=== PATIENT | female | born 1975 | race African-American/Black ===

== ENCOUNTER 2018-07-08 00:37 | Inpatient (IN) | payer OTHER ==
[2018-07-08 00:55] VITALS: BMI 36.9
[2018-07-08] MEDS ORDERED: KETOROLAC TROMETHAMINE 60 MG/2 ML VIAL IM ONE (01:15)
--- NOTE | 2018-07-08 01:15 | PDOC ---
History of Present Illness - General Chief Complaint: Injury Stated Complaint: FALL Time Seen by Provider: 07/08/18 01:06 History Source: Patient - History of Present Illness Initial Comments: 07/08/18 02:37 42 year old female with rheumatoid arthritis s/p slip and fall in the bathroom at 8pm reports pain to right upper arm, right knee and right ankle pain. no deformity noted. + swelling to right knee. full rom to right shoulder. denies LOC/ dizziness/ head trauma PMHX: RA Past History - Past Medical History Allergies/Adverse Reactions: Allergies Allergy/AdvReac Type Severity Reaction Status Date / Time No Known Allergies Allergy Verified 07/08/18 00:46 Home Medications: Ambulatory Orders Calcium Carbonate/Vitamin D3 [Calcium 600 + D3 Softgel] 1 each PO DAILY Ferrous Sulfate 325 mg PO DAILY 07/08/18 Folic Acid 1 mg PO DAILY 07/08/18 Multivit with Iron,Minerals [Compete] 1 each PO DAILY 07/08/18 Naproxen 500 mg PO Q12H 07/08/18 Prednisone [Deltasone] 20 mg PO DAILY 07/08/18 Vit No.129/Iron/Folic [ One Daily Tablet] 1 tablet PO DAILY Sulfasalazine [Sulfasalazine Dr] 500 mg PO TID 07/08/18 - Suicide/Smoking/Psychosocial Hx Smoking History: Never smoked Have you smoked in the past 12 months: No Information on smoking cessation initiated: No Hx Alcohol Use: No Drug/Substance Use Hx: No Review of Systems - Review of Systems Able to Perform ROS?: Yes Is the patient limited Japanese proficient: No Constitutional: No: Symptoms Reported, See HPI, Chills, Diaphoresis, Fever, Loss of Appetite, Malaise, Night Sweats, Weakness, Weight Stable, Unintentional Wgt. Loss, Unexplained wgt Loss, Other Musculoskeletal: Yes: Joint Pain, Joint Swelling *Physical Exam - Vital Signs Last Vital Signs Temp Pulse Resp BP Pulse Ox 98.0 F 108 H 20 148/92 98 07/08/18 00:40 07/08/18 00:40 07/08/18 00:40 07/08/18 00:40 07/08/18 00:40 - Physical Exam General Appearance: Yes: Appropriately Dressed, Mild Distress Gastrointestinal/Abdominal: positive: Normal Bowel Sounds, Soft Musculoskeletal: positive: Normal Inspection Extremity: positive: Normal Capillary Refill, Normal Inspection, Other (limited rom of right ankle and right knee) Integumentary: positive: Normal Color, Dry, Warm Neurologic: positive: Fully Oriented, Alert ED Treatment Course - LABORATORY CBC & Chemistry Diagram: 07/08/18 04:23 07/08/18 04:23 Progress Note - Progress Note Progress Note: A: Joint pain P; pain control xray labs admit Medical Decision Making - Medical Decision Making 07/08/18 03:38 patient reports pain is too severe unable to weight bear. will give meds for pain, will check labs and admit for PT evaluation and pain control. patient reports that she usually goes to [facility] recently moved to [place]. lives 3 flights up wit no elevator. 07/08/18 04:35 07/08/[address] Cuadra. pending CT pelvis and lower extremity prior to disposition. 07/08/18 07:11 Patient signed out to Travis Robledo. pending CT results., TOSIN to contact hospitalist once results are read. *DC/Admit/Observation/Transfer Diagnosis at time of Disposition: Unable to bear weight Ankle pain, right Qualifiers: Chronicity: acute Qualified Code(s): M25.571 - Pain in right ankle and joints of right foot Knee pain, right Qualifiers: Chronicity: acute Qualified Code(s): M25.561 - Pain in right knee Upper extremity pain, anterior Qualifiers: Laterality: right Qualified Code(s): M79.601 - Pain in right arm - Discharge Dispostion Condition at time of disposition: Stable Decision to Admit order: Yes - Referrals - Patient Instructions - Post Discharge Activity
[2018-07-08] MEDS ORDERED: KETOROLAC TROMETHAMINE 60 MG/2 ML VIAL ONE (01:37)
[2018-07-08 04:46] LABS: BASO % 0.7 % (0-2.0); HEMATOCRIT 33.9 % (32.4-45.2); HEMOGLOBIN 11.2 GM/dL (10.7-15.3); LYMPH % 19.9 % (8-40); MCH 28.3 pg (25.7-33.7); MCHC 33.1 g/dl (32.0-36.0); MEAN CELL VOLUME 85.5 fl (80-96); MEAN PLT VOLUME 7.9 fl (7.5-11.1); MONO % 6.8 % (3.8-10.2); NEUT % 70.6 % (42.8-82.8); PLATELET COUNT 441 K/MM3 (134-434); RBC 3.97 M/mm3 (3.60-5.2); RDW 15.8 % (11.6-15.6)
[2018-07-08 05:17] LABS: ALBUMIN 2.8 g/dl (3.4-5.0); ALK PHOS 79 U/L (45-117); ANION GAP 7 MMOL/L (8-16); BILIRUBIN,TOTAL 0.6 mg/dL (0.2-1); BLOOD UREA NITROGEN 17 mg/dL (7-18); CALCIUM 8.6 mg/dL (8.5-10.1); CHLORIDE 102 mmol/L (98-107); CO2 26 mmol/L (21-32); CREATININE 0.9 mg/dL (0.55-1.3); GLUCOSE,RANDOM 138 mg/dL (74-106); POTASSIUM 4.3 mmol/L (3.5-5.1); SGOT/AST 23 U/L (15-37); SGPT/ALT 16 U/L (13-61); SODIUM 135 mmol/L (136-145); TOT PROT 7.2 g/dl (6.4-8.2)
--- NOTE | 2018-07-08 07:28 | PDOC ---
*Physical Exam - Vital Signs Last Vital Signs Temp Pulse Resp BP Pulse Ox 98.0 F 108 H 20 148/92 98 07/08/18 00:40 07/08/18 00:40 07/08/18 00:40 07/08/18 00:40 07/08/18 00:40 - Physical Exam Comments: 07/08/18 07:23 I as you and care of this 42-year-old with history of rheumatoid arthritis presenting with complain of pain to right shoulder, right knee and ankle status post slip and fall yesterday. X-ray done with no sig joint findings. Patient refused to bear weight due to pain. Patient laying on the right side on the bed even though she complain of right-sided pain. CAT scan of the pelvis ordered as per hospitalist request. Patient to be admitted for pain control and physical therapy evaluation due to not wanting to bear weight. General Appearance: Yes: Nourished. No: Apparent Distress HEENT: positive: Normal ENT Inspection Neck: positive: Supple Respiratory/Chest: positive: Lungs Clear. negative: Chest Tender, Accessory Muscle Use Cardiovascular: positive: Regular Rhythm, Regular Rate Gastrointestinal/Abdominal: positive: Normal Bowel Sounds Musculoskeletal: positive: Normal Inspection, Other (mild right knee swelling) Extremity: positive: Normal Inspection Neurologic: positive: Fully Oriented, Alert, Normal Mood/Affect, Normal Response , Motor Strength / ED Treatment Course - LABORATORY CBC & Chemistry Diagram: 07/08/18 04:23 07/08/18 04:23 - ADDITIONAL ORDERS Additional order review: Laboratory Results 07/08/18 07/08/18 04:23 04:23 Sodium 135 L Potassium 4.3 Chloride 102 Carbon Dioxide 26 Anion Gap 7 L BUN 17 Creatinine 0.9 Creat Clearance w eGFR > 60 Random Glucose 138 H Calcium 8.6 Total Bilirubin 0.6 AST 23 ALT 16 Alkaline Phosphatase 79 C-Reactive Protein 8.6 H Total Protein 7.2 Albumin 2.8 L Serum , Qual Negative 07/08/18 04:23 RBC 3.97 MCV 85.5 MCHC 33.1 RDW 15.8 H MPV 7.9 Neutrophils % 70.6 Lymphocytes % 19.9 Monocytes % 6.8 Eosinophils % 2.0 Basophils % 0.7 - Medications Given in the ED: ED Medications Discontinued Medications Generic Name Dose Route Start Last Admin Trade Name Freq PRN Reason Stop Dose Admin Ketorolac Tromethamine 60 mg 07/08/18 01:15 07/08/18 02:06 Toradol Injection - IM 07/08/18 01:16 60 mg ONCE ONE Administration Oxycodone/Acetaminophen 1 combo 07/08/18 03:29 07/08/18 04:45 Percocet 5/325 - PO 07/08/18 03:30 1 combo ONCE ONE Administration Medical Decision Making - Medical Decision Making 07/08/18 07:26 Patient with the history of rheumatoid arthritis present with complain of pain to right shoulder right knee and ankle status post fall. Patient given Toradol IM and Percocet for pain and still reported severe pain and does not want to ambulate or bear weight on right foot. Patient reported history of multiple admissions every time she has joint pains at [facility] and refused to be sent home today. Case discussed with hospitalist team and patient pending admission after CT scan of the pelvis. 07/08/18 09:22 CT of LE with no acute findings. patient admitted under Dr. Azar Ogden for observation and pain control *DC/Admit/Observation/Transfer Diagnosis at time of Disposition: Unable to bear weight Ankle pain, right Qualifiers: Chronicity: acute Qualified Code(s): M25.571 - Pain in right ankle and joints of right foot Knee pain, right Qualifiers: Chronicity: acute Qualified Code(s): M25.561 - Pain in right knee Upper extremity pain, anterior Qualifiers: Laterality: right Qualified Code(s): M79.601 - Pain in right arm - Discharge Dispostion Condition at time of disposition: Stable Decision to Admit order: Yes - Referrals - Patient Instructions - Post Discharge Activity
[2018-07-08] MEDS ORDERED: ACETAMINOPHEN 325 MG TABLET (FP) PO PRN (09:00)
--- NOTE | 2018-07-08 09:00 | HP ---
CHIEF COMPLAINT: inability to bear weight PCP: none HISTORY OF PRESENT ILLNESS: 42 year old female with a history of rheumatoid arthritis presents s/p fall in her bathroom last night and inability to bear weight. She reports that she fell in her bathroom at around 8pm last night. Reports tripping and falling on her right side, hitting her pelvis, R arm, R knee, and R ankle. Reports intense pain and swelling in her right knee and states that she is unable to bear weight. Reports that she was diagnosed with RA 4 years ago, and has since been on several medications (sulfasalazine, prednisone, and naproxen), but she ran out 2 days ago. 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 She had previously gotten her meds from [facility] in [place]. Patient currently denies chest pain, SOB, nausea, vomiting, diarrhea, fevers, chills. ER course was notable for: (1) XR Knee, XR ankle/humerus (2) (3) Recent Travel: PAST MEDICAL HISTORY: Rheumatoid arthritis PAST SURGICAL HISTORY: none Social History: Smoking: smoked for 10 years, initially started at 1.5 ppd and reduced to 4 cigs /day Alcohol: never Drugs: never Family History: no history of DM, HTN, Allergies No Known Allergies Allergy (Verified 07/08/18 00:46) HOME MEDICATIONS: Home Medications Medication Instructions Recorded Calcium Carbonate/Vitamin D3 1 each PO DAILY 07/08/18 [Calcium 600 + D3 Softgel] Ferrous Sulfate 325 mg PO DAILY 07/08/18 Folic Acid 1 mg PO DAILY 07/08/18 Multivit with Iron,Minerals 1 each PO DAILY 07/08/18 [Compete] Naproxen 500 mg PO Q12H 07/08/18 Prednisone [Deltasone] 20 mg PO DAILY 07/08/18 Vit No.129/Iron/Folic 1 tablet PO DAILY 07/08/18 [ One Daily Tablet] Sulfasalazine [Sulfasalazine Dr] 500 mg PO TID 07/08/18 REVIEW OF SYSTEMS CONSTITUTIONAL: Absent: fever, chills, diaphoresis, generalized weakness, malaise, loss of appetite, weight change HEENT: Absent: rhinorrhea, nasal congestion, throat pain, throat swelling, difficulty swallowing, mouth swelling, ear pain, eye pain, visual changes CARDIOVASCULAR: Absent: chest pain, syncope, palpitations, irregular heart rate, lightheadedness , peripheral edema RESPIRATORY: Absent: cough, shortness of breath, dyspnea with exertion, orthopnea, wheezing, stridor, hemoptysis GASTROINTESTINAL: Absent: abdominal pain, abdominal distension, nausea, vomiting, diarrhea, constipation, melena, hematochezia GENITOURINARY: Absent: dysuria, frequency, urgency, hesitancy, hematuria, flank pain, genital pain MUSCULOSKELETAL: arthralgia, joint swelling Absent: myalgia, back pain, neck pain SKIN: Absent: rash, itching, pallor HEMATOLOGIC/IMMUNOLOGIC: Absent: easy bleeding, easy bruising, lymphadenopathy, frequent infections ENDOCRINE: Absent: unexplained weight gain, unexplained weight loss, heat intolerance, cold intolerance NEUROLOGIC: Absent: headache, focal weakness or paresthesias, dizziness, unsteady gait, seizure, mental status changes, bladder or bowel incontinence PSYCHIATRIC: Absent: anxiety, depression, suicidal or homicidal ideation, hallucinations. PHYSICAL EXAMINATION Vital Signs - 24 hr 07/08/18 07/08/18 00:40 08:21 Temperature 98.0 F 98.3 F Pulse Rate 108 H Pulse Rate [ 98 H Left Apical] Respiratory 20 16 Rate Blood Pressure 148/92 Blood Pressure 118/82 [Left Arm] O2 Sat by Pulse 98 98 Oximetry (%) GENERAL: A&Ox3, no acute distress EYES: PERRLA, EOMI ENT: Moist mucus membranes NECK: No JVD LUNGS: CTA, no wheezes HEART: RRR, no murmurs ABDOMEN: Obese, Soft, nontender, BS present EXTREMITIES: 2+ pulses, swelling of b/l knees noted, moreso on the R. Patient has restricted ROM of B/L knees due to pain. Patient has flexion contractures of b/l hands and radial deviation b/l NEUROLOGICAL: Cranial nerves II-XII intact. Laboratory Results - last 24 hr 07/08/18 07/08/18 07/08/18 04:23 04:23 04:23 WBC 8.0 RBC 3.97 Hgb 11.2 Hct 33.9 MCV 85.5 MCH 28.3 MCHC 33.1 RDW 15.8 H Plt Count 441 H MPV 7.9 Absolute Neuts (auto) 5.6 Neutrophils % 70.6 Lymphocytes % 19.9 Monocytes % 6.8 Eosinophils % 2.0 Basophils % 0.7 Nucleated RBC % 0 Sodium 135 L Potassium 4.3 Chloride 102 Carbon Dioxide 26 Anion Gap 7 L BUN 17 Creatinine 0.9 Creat Clearance w eGFR > 60 Random Glucose 138 H Calcium 8.6 Total Bilirubin 0.6 AST 23 ALT 16 Alkaline Phosphatase 79 C-Reactive Protein 8.6 H Total Protein 7.2 Albumin 2.8 L Serum , Qual Negative ASSESSMENT/PLAN: 42 year old female with a history of rheumatoid arthritis presents s/p fall in her bathroom last night and inability to bear weight #S/P Fall: patient is currently stable, in no acute distress, but would like admission for inability to bear weight and evaluation for RA management -patient is unable to bear weight -pain control with home medications, add tylenol -physical therapy -no fractures on x rays #Rheumatoid Arthritis: patient is not well controlled on current medications and /or non-compliant with therapy -continue sulfasalazine -continue prednisone -continue naproxen #Anemia: stable with hgb 11.2 -continue ferrous sulfate 325 QD -continue folate and multivitamin #Smoking Cessation: counseled patient on smoking cessation -will give nicotine patch #FEN -no standing fluids -lytes normal -regular diet #Prophylaxis -heparin 5000 subq TID #Disposition -admit obs Visit type - Emergency Visit Emergency Visit: Yes ED Registration Date: 07/08/18 Care time: The patient presented to the Emergency Department on the above date and was hospitalized for further evaluation of their emergent condition. - New Patient This patient is new to me today: Yes Date on this admission: 07/08/18 - Critical Care Critical Care patient: No Hospitalist Screening - Colonoscopy Questionnaire Colonoscopy Questionnaire: Colonoscopy Questionnaire - Patient: 50 - 75 years old and never had a screening colonoscopy: Unknown History of colon or rectal polyps, or CA: Unknown History of IBD, Crohn's disease or UC: Unknown History of abdominal radiation therapy as a child: Unknown - Relative: 1 with colon or rectal CA, or polyps at age 60 or younger: Unknown Colon or rectal CA diagnosed at age 45 or younger: Unknown Multiple relatives with colon or rectal CA: Unknown - Outcome: Screening Result: Negative Screen
--- NOTE | 2018-07-08 09:56 | PN ---
Teaching Attending Note Name of Resident: Jarod Mullins ATTENDING PHYSICIAN STATEMENT I saw and evaluated the patient. I reviewed the resident's note and discussed the case with the resident. I agree with the resident's findings and plan as documented. SUBJECTIVE: This is a 42 year old woman with a history of RA who comes to the ED with pain in her right shoulder, right knee, right ankle after a fall at home. She states she is unable to bear weight on her right leg because of pain. The fall occurred in her bathroom around 8pm yesterday. She says she tripped and fell, landing on her right side. She ran out of her medications 2 days ago. OBJECTIVE: Vital Signs Period Temp Pulse Resp BP Sys/Luna Pulse Ox Last 24 Hr 98.0 F-98.3 F 98-108 16-20 118-148/82-92 98-98 HEART: S1S2, RRR LUNGS: Clear ABDOMEN: Obese, soft, non-tender, non-distended, normal BS EXTREMITIES: No edema Laboratory Tests 07/08/18 07/08/18 07/08/18 04:23 04:23 04:23 WBC 8.0 RBC 3.97 Hgb 11.2 Hct 33.9 MCV 85.5 MCH 28.3 MCHC 33.1 RDW 15.8 H Plt Count 441 H MPV 7.9 Absolute Neuts (auto) 5.6 Neutrophils % 70.6 Lymphocytes % 19.9 Monocytes % 6.8 Eosinophils % 2.0 Basophils % 0.7 Nucleated RBC % 0 Sodium 135 L Potassium 4.3 Chloride 102 Carbon Dioxide 26 Anion Gap 7 L BUN 17 Creatinine 0.9 Creat Clearance w eGFR > 60 Random Glucose 138 H Calcium 8.6 Total Bilirubin 0.6 AST 23 ALT 16 Alkaline Phosphatase 79 C-Reactive Protein 8.6 H Total Protein 7.2 Albumin 2.8 L Serum , Qual Negative Home Medications Medication Instructions Recorded Calcium Carbonate/Vitamin D3 1 each PO DAILY 07/08/18 [Calcium 600 + D3 Softgel] Ferrous Sulfate 325 mg PO DAILY 07/08/18 Folic Acid 1 mg PO DAILY 07/08/18 Multivit with Iron,Minerals 1 each PO DAILY 07/08/18 [Compete] Naproxen 500 mg PO Q12H 07/08/18 Prednisone [Deltasone] 20 mg PO DAILY 07/08/18 Vit No.129/Iron/Folic 1 tablet PO DAILY 07/08/18 [ One Daily Tablet] Sulfasalazine [Sulfasalazine Dr] 500 mg PO TID 07/08/18 ASSESSMENT AND PLAN: This is a 42 year old woman with a history of RA who presented to the ED with pain in her right shoulder, right knee, right ankle, and unable to bear weight on her right leg after a fall at home. 1. s/p fall - X-rays of right knee show osteopenia, mild arthritis, medial tibial plateau fracture unable to be ruled out - X-rays of right ankle/foot show osteopenia, arthritis, valgus deformities of toes, superior talus spur vs avulsion - X-rays of right humerus show no fracture or dislocation - CT of pelvis/lower extremities shows no fractures, minimal bilateral knee joint effusions, moderate OA of ankles and feet, ventral hernias, fibroids - PT evaluation 2. Rheumatoid arthritis - Continue Prednisone, Sulfasalazine - Rheumatology consult 3. Nicotine dependence - Start nicotine patch
[2018-07-08] MEDS ORDERED: PATIENT'S OWN MEDICATION (NON-FORMULARY) (Multivit With Iron,Minerals [Compete] 1 EACH) PO SCH (10:00)
[2018-07-08] MEDS: FOLIC ACID 1 MG TABLET (FP) PO SCH (10:22)
[2018-07-08] MEDS: NAPROXEN 500 MG TABLET (FP) PO SCH ×2 (10:22→22:33)
[2018-07-08] MEDS: predniSONE 20 MG TABLET (UD) PO SCH (10:22)
[2018-07-08] MEDS: PRENATAL VITAMINS W/ FOLIC ACID TABLET (FP) PO SCH (10:22)
[2018-07-08] MEDS: CALCIUM 500MG/VIT-D 200 UNITS COMBO TABLET (FP) PO SCH (10:22)
[2018-07-08] MEDS: FERROUS SO4 325 MG TABLET (FP) PO SCH (10:22)
[2018-07-08] MEDS: NICOTINE 7 MG/24 HOURS TOPICAL PATCH TD SCH (10:28)
[2018-07-08] MEDS: ENOXAPARIN NA (PORCINE) 40 MG/0.4 ML DISP.SYRIN SQ SCH ×2 (10:28→10:35)
[2018-07-08] MEDS ORDERED: PT OWN MED DRAWER 7, Y5N ONE ×2 (14:29→14:40)
--- NOTE | 2018-07-09 09:20 | PN ---
Physical Exam: SUBJECTIVE: Patient seen and examined. She complains of pain in multiple joints. OBJECTIVE: Vital Signs Period Temp Pulse Resp BP Sys/Luna Pulse Ox Last 24 Hr 97.7 F-98.6 F 73-96 20-20 120-142/69-99 98-98 GENERAL: The patient is awake, alert, and fully oriented, in no acute distress. LUNGS: Breath sounds equal, clear to auscultation bilaterally, no wheezes, no crackles, no accessory muscle use. HEART: Regular rate and rhythm, S1, S2 without murmur, rub or gallop. ABDOMEN: Obese, soft, nontender, nondistended, normoactive bowel sounds, no guarding, no rebound, no hepatosplenomegaly, no masses. EXTREMITIES: 2+ pulses, warm, well-perfused, no edema. Active Medications Generic Name Dose Route Start Last Admin Trade Name Freq PRN Reason Stop Dose Admin Acetaminophen 650 mg 07/08/18 09:00 07/09/18 07:03 Tylenol - PO 650 mg Q4H PRN Administration PAIN LEVEL 4 - 6 Calcium Carbonate/Cholecalciferol 1 tab 07/08/18 10:00 07/08/18 10:22 Os-Aren 500+D - PO 1 tab DAILY NATALYA Administration Enoxaparin Sodium 40 mg 07/08/18 10:00 07/08/18 10:35 Lovenox - SQ Not Given DAILY NATALYA Ferrous Sulfate 325 mg 07/08/18 10:00 07/08/18 10:22 Feosol - PO 325 mg DAILY NATALYA Administration Folic Acid 1 mg 07/08/18 10:00 07/08/18 10:22 Folic Acid - PO 1 mg DAILY NATALYA Administration Naproxen 500 mg 07/08/18 10:00 07/08/18 22:33 Naprosyn - PO 500 mg BID NATALYA Administration Nicotine 7 mg 07/08/18 10:00 07/08/18 10:28 Nicoderm Patch - TD 7 mg DAILY NATALYA Administration Prednisone 20 mg 07/08/18 10:00 07/08/18 10:22 Deltasone - PO 20 mg DAILY NATALYA Administration Multivit/Folic Acid/Iron 1 tab 07/08/18 10:00 07/08/18 10:22 Vitamins (Sjr) - PO 1 tab DAILY NATALYA Administration Sulfasalazine 500 mg 07/08/18 14:00 07/09/18 07:02 Azulfidine En-Tabs - PO 500 mg TID NATALYA Administration ASSESSMENT/PLAN: This is a 42 year old woman with a history of RA who presented to the ED with pain in her right shoulder, right knee, right ankle, and unable to bear weight on her right leg after a fall at home. 1. s/p fall - X-rays of right knee show osteopenia, mild arthritis, medial tibial plateau fracture unable to be ruled out - X-rays of right ankle/foot show osteopenia, arthritis, valgus deformities of toes, superior talus spur vs avulsion - X-rays of right humerus show no fracture or dislocation - CT of pelvis/lower extremities shows no fractures, minimal bilateral knee joint effusions, moderate OA of ankles and feet, ventral hernias, fibroids - PT evaluation 2. Rheumatoid arthritis - Continue Prednisone, Sulfasalazine, Naprosyn - Oxycodone for pain control - Awaiting rheumatology consult 3. Nicotine dependence - Continue nicotine patch 4. Obesity with BMI 36.9
[2018-07-09] MEDS ORDERED: ACETAMINOPHEN 325 MG TABLET (FP) PO PRN (09:21)
[2018-07-09] MEDS ORDERED: PT OWN MED DRAWER 7, Y5N ONE ×2 (09:42→15:13)
[2018-07-09] MEDS: predniSONE 20 MG TABLET (UD) PO SCH (09:44)
[2018-07-09] MEDS: CALCIUM 500MG/VIT-D 200 UNITS COMBO TABLET (FP) PO SCH (09:44)
[2018-07-09] MEDS: FERROUS SO4 325 MG TABLET (FP) PO SCH (09:44)
[2018-07-09] MEDS: NICOTINE 7 MG/24 HOURS TOPICAL PATCH TD SCH (09:45)
[2018-07-09] MEDS: FOLIC ACID 1 MG TABLET (FP) PO SCH (09:45)
[2018-07-09] MEDS: NAPROXEN 500 MG TABLET (FP) PO SCH ×2 (09:45→23:15)
[2018-07-09] MEDS: PRENATAL VITAMINS W/ FOLIC ACID TABLET (FP) PO SCH (09:46)
[2018-07-09] MEDS: oxyCODONE HCL 5 MG TABLET PO PRN ×2 (09:46→18:51)
[2018-07-09] MEDS: ENOXAPARIN NA (PORCINE) 40 MG/0.4 ML DISP.SYRIN SQ SCH (09:54)
--- NOTE | 2018-07-09 22:48 | CONSULT ---
Consult Consult Specialty:: Rheumatology - History of Present Illness History of Present Illness: 42 year old female with a history of rheumatoid arthritis, admitted after a fall in her bathroom last night and inability to bear weight. HPI. The patient reports that 3 days ago she had locking of the right knee and had a fall in the bathroom with trauma to the right arma, right knee and right ankle. She was not able to stand up. Since admission she had partial improvement, however she still cannot walk. Rheumatoid arthritis, Four years ago she developed pain and swelling in multiple joints. She was treated by a community outreach worker until 4 months ago at [facility]. Apparently she had liver toxicity with Leflunomide and she was nevet treated with Methotrexate, At the presewnt time she in on Sulfasalazine 500 mg TID. She was never well controlled, she developed deformity in hands and continued having significant pain accompanied by 2 hour morning stiffness. She has never been treated with a biological DMARD. In the hospital CT scan of the pelvis and right lower extremity wqas negative for fracture. X rays of the right knee (not weight bearing) revealed femoral- tibial joint space normaland narrowing of elidia lateral aspecto of the patello- femoral space. X rays of the right foot reelaed narrowing of the talo- navicular joint and erosions in the 1st and 2nd MTPs. Labs CRP 8.6. - History Source History Provided By: Patient - Past Medical History ...LMP: 06/28/18 ...: No - Alcohol/Substance Use Hx Alcohol Use: No - Smoking History Smoking history: Never smoked Have you smoked in the past 12 months: No Aproximately how many cigarettes per day: 4 Home Medications - Allergies Allergies/Adverse Reactions: Allergies Allergy/AdvReac Type Severity Reaction Status Date / Time No Known Allergies Allergy Verified 07/08/18 00:46 - Home Medications Home Medications: Ambulatory Orders Calcium Carbonate/Vitamin D3 [Calcium 600 + D3 Softgel] 1 each PO DAILY Ferrous Sulfate 325 mg PO DAILY 07/08/18 Folic Acid 1 mg PO DAILY 07/08/18 Multivit with Iron,Minerals [Compete] 1 each PO DAILY 07/08/18 Naproxen 500 mg PO Q12H 07/08/18 Prednisone [Deltasone] 20 mg PO DAILY 07/08/18 Vit No.129/Iron/Folic [ One Daily Tablet] 1 tablet PO DAILY Sulfasalazine [Sulfasalazine Dr] 500 mg PO TID 07/08/18 Review of Systems - Review of Systems Constitutional: reports: Malaise Eyes: reports: No Symptoms HENT: reports: No Symptoms Neck: reports: No Symptoms Cardiovascular: reports: No Symptoms Respiratory: reports: No Symptoms Gastrointestinal: reports: No Symptoms Genitourinary: reports: No Symptoms Musculoskeletal: reports: Other (See HPI) Integumentary: reports: No Symptoms Neurological: reports: No Symptoms Physical Exam Vital Signs: Vital Signs Temperature 98.0 F 07/09/18 18:00 Pulse Rate 91 H 07/09/18 18:00 Respiratory Rate 20 07/09/18 18:00 Blood Pressure 107/56 L 07/09/18 18:00 O2 Sat by Pulse Oximetry (%) 98 07/09/18 16:00 Constitutional: Yes: Moderate Distress Eyes: Yes: WNL HENT: Yes: WNL Neck: Yes: WNL Cardiovascular: Yes: WNL Respiratory: Yes: WNL Gastrointestinal: Yes: WNL Musculoskeletal: Yes: Other (Swelling of both wrists, all MCP's and PIP's and the right knee. The right ankle was tender. 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 Disease very active with damage in multiple joints. Plan: Increase Sulfasalazine to 1 gr BID. Start Methotrexate 15 mg/ week. The patient requires management by a community outreach worker as outpatient and to start a biological DMARD ted. At the present time she has pain related to a fall with no fractures. I suggest to continue conservative management and PT for this problem. Code(s): M06.9 - RHEUMATOID ARTHRITIS, UNSPECIFIED
[2018-07-10] MEDS ORDERED: METHOTREXATE 2.5 MG TABLET PO SCH (08:00)
[2018-07-10] MEDS ORDERED: PT OWN MED DRAWER 7, Y5N ONE ×3 (08:29→11:32)
--- NOTE | 2018-07-10 08:51 | PN ---
Physical Exam: SUBJECTIVE: Patient seen and examined. She has no new complaints. She ambulated 5 feet with PT yesterday and says she will be unable to walk up stairs at home. She is erquesting rehab. OBJECTIVE: Vital Signs Period Temp Pulse Resp BP Sys/Luna Pulse Ox Last 24 Hr 97.7 F-98.1 F 70-91 20-20 107-146/56-84 98-98 GENERAL: The patient is awake, alert, and fully oriented, in no acute distress. LUNGS: Breath sounds equal, clear to auscultation bilaterally, no wheezes, no crackles, no accessory muscle use. HEART: Regular rate and rhythm, S1, S2 without murmur, rub or gallop. ABDOMEN: Soft, nontender, nondistended, normoactive bowel sounds, no guarding, no rebound, no hepatosplenomegaly, no masses. EXTREMITIES: 2+ pulses, warm, well-perfused, no edema. Active Medications Generic Name Dose Route Start Last Admin Trade Name Freq PRN Reason Stop Dose Admin Acetaminophen 650 mg 07/09/18 09:21 Tylenol - PO Q4H PRN PAIN LEVEL 1-5 Calcium Carbonate/Cholecalciferol 1 tab 07/08/18 10:00 07/09/18 09:44 Os-Aren 500+D - PO 1 tab DAILY NATALYA Administration Enoxaparin Sodium 40 mg 07/08/18 10:00 07/09/18 09:54 Lovenox - SQ Not Given DAILY NATALYA Ferrous Sulfate 325 mg 07/08/18 10:00 07/09/18 09:44 Feosol - PO 325 mg DAILY NATALYA Administration Folic Acid 1 mg 07/08/18 10:00 07/09/18 09:45 Folic Acid - PO 1 mg DAILY NATALYA Administration Methotrexate 15 mg 07/10/18 08:00 Mexate - PO Q7D NATALYA Naproxen 500 mg 07/08/18 10:00 07/09/18 23:15 Naprosyn - PO 500 mg BID NATALYA Administration Nicotine 7 mg 07/08/18 10:00 07/09/18 09:45 Nicoderm Patch - TD 7 mg DAILY NATALYA Administration Oxycodone HCl 10 mg 07/09/18 09:20 07/09/18 18:51 Roxicodone - PO 10 mg Q4H PRN Administration PAIN LEVEL 6-10 Prednisone 20 mg 07/08/18 10:00 07/09/18 09:44 Deltasone - PO 20 mg DAILY NATALYA Administration Multivit/Folic Acid/Iron 1 tab 07/08/18 10:00 07/09/18 09:46 Vitamins (Sjr) - PO 1 tab DAILY NATALYA Administration Sulfasalazine 1,000 mg 07/10/18 10:00 Azulfidine En-Tabs - PO BID NATALYA ASSESSMENT/PLAN: This is a 42 year old woman with a history of RA who presented to the ED with pain in her right shoulder, right knee, right ankle, and unable to bear weight on her right leg after a fall at home. 1. s/p fall - X-rays of right knee show osteopenia, mild arthritis, medial tibial plateau fracture unable to be ruled out - X-rays of right ankle/foot show osteopenia, arthritis, valgus deformities of toes, superior talus spur vs avulsion - X-rays of right humerus show no fracture or dislocation - CT of pelvis/lower extremities shows no fractures, minimal bilateral knee joint effusions, moderate OA of ankles and feet, ventral hernias, fibroids - PT evaluation 2. Rheumatoid arthritis - Rheumatology consult appreciated - Continue Prednisone, Naprosyn - Sulfasalazine increased - Methotrexate added - Continue oxycodone as needed for pain - Outpatient rheumatology follow up for DMARD 3. Nicotine dependence - Continue nicotine patch 4. Obesity with BMI 36.9 5. Disposition - Continue PT - Plan for subacute rehab
[2018-07-10] MEDS: oxyCODONE HCL 5 MG TABLET PO PRN ×2 (09:36→21:13)
[2018-07-10] MEDS: FOLIC ACID 1 MG TABLET (FP) PO SCH (09:41)
[2018-07-10] MEDS: FERROUS SO4 325 MG TABLET (FP) PO SCH (09:41)
[2018-07-10] MEDS: NAPROXEN 500 MG TABLET (FP) PO SCH ×2 (09:42→21:07)
[2018-07-10] MEDS: CALCIUM 500MG/VIT-D 200 UNITS COMBO TABLET (FP) PO SCH (09:42)
[2018-07-10] MEDS: ENOXAPARIN NA (PORCINE) 40 MG/0.4 ML DISP.SYRIN SQ SCH ×2 (09:42→09:58)
[2018-07-10] MEDS: NICOTINE 7 MG/24 HOURS TOPICAL PATCH TD SCH (09:42)
[2018-07-10] MEDS: predniSONE 20 MG TABLET (UD) PO SCH (09:42)
[2018-07-10] MEDS: PRENATAL VITAMINS W/ FOLIC ACID TABLET (FP) PO SCH (09:52)
[2018-07-11] MEDS: FOLIC ACID 1 MG TABLET (FP) PO SCH (11:02)
[2018-07-11] MEDS: ENOXAPARIN NA (PORCINE) 40 MG/0.4 ML DISP.SYRIN SQ SCH (11:02)
[2018-07-11] MEDS: FERROUS SO4 325 MG TABLET (FP) PO SCH (11:02)
[2018-07-11] MEDS: NICOTINE 7 MG/24 HOURS TOPICAL PATCH TD SCH (11:02)
[2018-07-11] MEDS: CALCIUM 500MG/VIT-D 200 UNITS COMBO TABLET (FP) PO SCH (11:02)
[2018-07-11] MEDS: predniSONE 20 MG TABLET (UD) PO SCH (11:02)
[2018-07-11] MEDS: NAPROXEN 500 MG TABLET (FP) PO SCH (11:03)
[2018-07-11] MEDS: PRENATAL VITAMINS W/ FOLIC ACID TABLET (FP) PO SCH (11:04)
[2018-07-11] MEDS ORDERED: PT OWN MED DRAWER 7, Y5N ONE ×2 (11:15→18:18)
[2018-07-11] MEDS: oxyCODONE HCL 5 MG TABLET PO PRN ×2 (11:17→18:20)
[2018-07-11 15:20] VITALS: BP 129/78; PULSE 75; TEMP 98.3
[2018-07-11 15:37] LABS: BASO % 0.4 % (0-2.0); EOS % 0.3 % (0-4.5); HEMATOCRIT 30.7 % (32.4-45.2); HEMOGLOBIN 9.8 GM/dL (10.7-15.3); LYMPH % 8.9 % (8-40); MCH 27.8 pg (25.7-33.7); MCHC 32.1 g/dl (32.0-36.0); MEAN CELL VOLUME 86.6 fl (80-96); MEAN PLT VOLUME 7.6 fl (7.5-11.1); MONO % 2.5 % (3.8-10.2); NEUT % 87.9 % (42.8-82.8); PLATELET COUNT 408 K/MM3 (134-434); RBC 3.54 M/mm3 (3.60-5.2); RDW 15.8 % (11.6-15.6); WHITE BLOOD COUNT 8.7 K/mm3 (4.0-10.0)
[2018-07-11 15:54] LABS: ANION GAP 9 MMOL/L (8-16); BLOOD UREA NITROGEN 14 mg/dL (7-18); CALCIUM 9.3 mg/dL (8.5-10.1); CHLORIDE 104 mmol/L (98-107); CO2 26 mmol/L (21-32); CREATININE 0.6 mg/dL (0.55-1.3); GLUCOSE,RANDOM 151 mg/dL (74-106); MAGNESIUM 1.8 mg/dL (1.8-2.4); POTASSIUM 4.4 mmol/L (3.5-5.1); SODIUM 139 mmol/L (136-145)
[2018-07-11 15:57] LABS: ALBUMIN 2.7 g/dl (3.4-5.0); ALK PHOS 76 U/L (45-117); BILIRUBIN,DIRECT < 0.2 mg/dL (0.0-0.2); BILIRUBIN,TOTAL 0.1 mg/dL (0.2-1); SGOT/AST 16 U/L (15-37); SGPT/ALT 17 U/L (13-61); TOT PROT 6.8 g/dl (6.4-8.2)
--- NOTE | 2018-07-11 16:05 | DS ---
Physical Exam: SUBJECTIVE: Patient seen and examined OBJECTIVE: Vital Signs Period Temp Pulse Resp BP Sys/Luna Pulse Ox Last 24 Hr 97.7 F-98.4 F 71-90 20-20 129-158/73-92 98-98 PHYSICAL EXAM GENERAL: The patient is awake, alert, and fully oriented, in no acute distress. LUNGS: Breath sounds equal, clear to auscultation bilaterally, no wheezes, no crackles, no accessory muscle use. HEART: Regular rate and rhythm, S1, S2 without murmur, rub or gallop. ABDOMEN: Obese, soft, nontender, nondistended, normoactive bowel sounds, no guarding, no rebound, no hepatosplenomegaly, no masses. EXTREMITIES: 2+ pulses, warm, well-perfused, no edema. LABS Laboratory Results - last 24 hr 07/11/18 07/11/18 07/11/18 14:20 14:20 14:20 WBC 8.7 RBC 3.54 L Hgb 9.8 L Hct 30.7 L MCV 86.6 MCH 27.8 MCHC 32.1 RDW 15.8 H Plt Count 408 MPV 7.6 Absolute Neuts (auto) 7.7 Neutrophils % 87.9 H D Lymphocytes % 8.9 D Monocytes % 2.5 L Eosinophils % 0.3 D Basophils % 0.4 Nucleated RBC % 0 Sodium 139 Potassium 4.4 Chloride 104 Carbon Dioxide 26 Anion Gap 9 BUN 14 Creatinine 0.6 Creat Clearance w eGFR > 60 Random Glucose 151 H Calcium 9.3 Magnesium 1.8 Total Bilirubin 0.1 L Direct Bilirubin < 0.2 AST 16 ALT 17 Alkaline Phosphatase 76 Total Protein 6.8 Albumin 2.7 L HOSPITAL COURSE: Date of Admission:07/11/18 Date of Discharge: 07/11/18 This is a 42 year old woman with a history of RA who presented to the ED with pain in her right shoulder, right knee, right ankle, and unable to bear weight on her right leg after a fall at home. 1. s/p fall - X-rays of right knee show osteopenia, mild arthritis, medial tibial plateau fracture unable to be ruled out - X-rays of right ankle/foot show osteopenia, arthritis, valgus deformities of toes, superior talus spur vs avulsion - X-rays of right humerus show no fracture or dislocation - CT of pelvis/lower extremities shows no fractures, minimal bilateral knee joint effusions, moderate OA of ankles and feet, ventral hernias, fibroids - PT evaluation 2. Rheumatoid arthritis - Continue Prednisone, Sulfasalazine, Naprosyn - Oxycodone for pain control 3. Nicotine dependence - Continue nicotine patch 4. Obesity with BMI 36.9 Minutes to complete discharge: 35 Discharge Summary Reason For Visit: RIGHT KNEE AND ANKLE PAIN, INABILITY TO BEAR WEIGH Current Active Problems Ankle pain, right (Acute) Knee pain, right (Acute) Rheumatoid arthritis (Acute) Unable to bear weight (Acute) Upper extremity pain, anterior (Acute) Condition: Improved - Instructions Disposition: [facility] - Home Medications Comprehensive Discharge Medication List: Ambulatory Orders Calcium Carbonate/Vitamin D3 [Calcium 600 + D3 Softgel] 1 each PO DAILY Ferrous Sulfate 325 mg PO DAILY 07/08/18 Folic Acid 1 mg PO DAILY 07/08/18 Multivit with Iron,Minerals [Compete] 1 each PO DAILY 07/08/18 Naproxen 500 mg PO Q12H 07/08/18 Prednisone [Deltasone] 20 mg PO DAILY 07/08/18 Vit No.129/Iron/Folic [ One Daily Tablet] 1 tablet PO DAILY Sulfasalazine [Sulfasalazine Dr] 500 mg PO TID 07/08/18 This patient is new to me today: Yes Date on this admission: 07/11/18 Emergency Visit: Yes ED Registration Date: 07/11/18 Care time: The patient presented to the Emergency Department on the above date and was hospitalized for further evaluation of their emergent condition. Critical Care patient: No - Discharge Referral Referred to [facility] Med [facility] No
[2018-07-17] MEDS ORDERED: METHOTREXATE 2.5 MG TABLET PO SCH (10:00)
== END 2018-07-11 20:04 | DRG 346 ==
LOC: JER 00:37 → JERBED 06:43 → J5S 09:34 → OBSVTOIN 07-11 12:34
PROVIDERS: ADMIT Internal Medicine; ATTEND Nurse Practitioner Acute Care
DX: M06.9 Rheumatoid arthritis, unspecified (principal); M24.542 Contracture, left hand; M24.541 Contracture, right hand; M25.571 Pain in right ankle and joints of right foot; M25.561 Pain in right knee; M85.88 Other specified disorders of bone density and structure, other site; W01.0XXA Fall on same level from slipping, tripping and stumbling without subsequent striking against object, initial encounter; Y93.89 Activity, other specified; Y92.031 Bathroom in apartment as the place of occurrence of the external cause; Y99.8 Other external cause status; F17.210 Nicotine dependence, cigarettes, uncomplicated; E66.9 Obesity, unspecified; Z68.36 Body mass index [BMI] 36.0-36.9, adult; D64.89 Other specified anemias
CPT/HCPCS: 36415; 72192-TC; 73060-TC-RT-FY; 73562-TC-RT-FY; 73610-TC-RT-FY; 73630-TC-RT-FY; 73700-TC-RT; 80048; 80053; 80076; 83735; 84703; 85025; 86140; 97116-GP; 97162-GP; 99285-25; G0378; J8610

== ENCOUNTER 2018-11-27 00:54 | Inpatient (IN) | payer OTHER ==
[2018-11-27 01:55] VITALS: BMI 32.5
--- NOTE | 2018-11-27 02:06 | PDOC ---
*Physical Exam - Vital Signs Last Vital Signs Temp Pulse Resp BP Pulse Ox 97.6 F 98 H 20 157/88 98 11/27/18 00:55 11/27/18 00:55 11/27/18 00:55 11/27/18 00:55 11/27/18 00:55 Medical Decision Making - Medical Decision Making 11/27/18 02:05 Patient seen by the advanced practice provider under my direct supervision. Ancillary testing reviewed as necessary. I agree with plan as outlined by the advanced practice provider. *DC/Admit/Observation/Transfer Diagnosis at time of Disposition: Inability to bear weight Ankle pain, right Qualifiers: Chronicity: acute Qualified Code(s): M25.571 - Pain in right ankle and joints of right foot Shoulder pain, right Qualifiers: Chronicity: acute Qualified Code(s): M25.511 - Pain in right shoulder - Referrals - Patient Instructions - Post Discharge Activity
--- NOTE | 2018-11-27 02:37 | PDOC ---
History of Present Illness - General Chief Complaint: Injury Stated Complaint: FALL Time Seen by Provider: 11/27/18 01:55 History Source: Patient - History of Present Illness Initial Comments: 11/27/18 02:28 42 year old female with a history of rheumatoid arthritis presents s/p fall " my leg gave out" c/o right ankle pain unable to weight bear and right shoulder pain with inability to raise arm. no clavicle pain. denies hip pain, head/ neck or head injury patient reports that she is unable to weight bear since the fall. " i think i need rehab again, i was unable to walk since the fall. 11/27/18 02:51 Past History - Past Medical History Allergies/Adverse Reactions: Allergies Allergy/AdvReac Type Severity Reaction Status Date / Time No Known Allergies Allergy Verified 11/27/18 01:54 Home Medications: Ambulatory Orders Ferrous Sulfate [Feosol] 325 mg PO BIDWM ud 11/28/18 Folic Acid - 1 mg PO DAILY tablet 11/28/18 Nicotine Patch [Nicoderm Patch -] 14 mg TD DAILY patch 11/28/18 predniSONE [Deltasone -] 15 mg PO DAILY tablet 11/28/18 Anemia: Yes COPD: No - Suicide/Smoking/Psychosocial Hx Smoking History: Never smoked Have you smoked in the past 12 months: No Number of Cigarettes Smoked Daily: 4 Cigars Per Day: 0 Information on smoking cessation initiated: No 'Breaking Loose' booklet given: 07/08/18 Hx Alcohol Use: No Drug/Substance Use Hx: No Substance Use Type: None Hx Substance Use Treatment: No Review of Systems - Review of Systems Able to Perform ROS?: Yes Is the patient limited Thai proficient: No Constitutional: No: Symptoms Reported, See HPI, Chills, Diaphoresis, Fever, Loss of Appetite, Malaise, Night Sweats, Weakness, Weight Stable, Unintentional Wgt. Loss, Unexplained wgt Loss, Other Musculoskeletal: Yes: Other (leg pain) *Physical Exam - Vital Signs Last Vital Signs Temp Pulse Resp BP Pulse Ox 97.6 F 98 H 20 157/88 98 11/27/18 00:55 11/27/18 00:55 11/27/18 00:55 11/27/18 00:55 11/27/18 00:55 - Physical Exam General Appearance: Yes: Appropriately Dressed Respiratory/Chest: positive: Lungs Clear, Normal Breath Sounds Gastrointestinal/Abdominal: positive: Normal Bowel Sounds, Soft. negative: Tender Extremity: positive: Normal Capillary Refill, Normal Inspection, Normal Range of Motion, Other (has swans neck deformity of fingers) Integumentary: positive: Normal Color, Dry, Warm Neurologic: positive: Fully Oriented, Alert, Normal Mood/Affect Moderate Sedation - Procedure Monitoring Vital Signs: Procedure Monitoring Vital Signs Temperature 97.6 F 11/27/18 00:55 Pulse Rate 98 H 11/27/18 00:55 Respiratory Rate 20 11/27/18 00:55 Blood Pressure 157/88 11/27/18 00:55 O2 Sat by Pulse Oximetry (%) 98 11/27/18 00:55 ED Treatment Course - LABORATORY CBC & Chemistry Diagram: 11/30/18 06:20 11/30/18 06:20 Progress Note - Progress Note Progress Note: A: inability to weight bear P: xray pain control Medical Decision Making - Medical Decision Making 11/27/18 04:33 No fracture or dislocation. No joint effusion. There are degenerative changes of the midfoot, advanced for a. Small plantar heel spur is noted. 11/27/18 04:37 patient unable to weight bear patient now reports that she had chest pain before improved since toradol dose . will do admission labs and place on obs for rehab evaluation 11/27/18 04:47 11/27/18 06:11 patient pending obs placement with hospitalist team. pending sign out. need pt eval inability of weight bear. microblog send. *DC/Admit/Observation/Transfer Diagnosis at time of Disposition: Inability to bear weight Ankle pain, right Qualifiers: Chronicity: acute Qualified Code(s): M25.571 - Pain in right ankle and joints of right foot Shoulder pain, right Qualifiers: Chronicity: acute Qualified Code(s): M25.511 - Pain in right shoulder - Discharge Dispostion Condition at time of disposition: Stable Decision to Admit order: Yes - Referrals - Patient Instructions - Post Discharge Activity
[2018-11-27] MEDS ORDERED: KETOROLAC TROMETHAMINE 30 MG/1 ML VIAL IM ONE (02:53)
[2018-11-27] MEDS ORDERED: KETOROLAC TROMETHAMINE 30 MG/1 ML VIAL ONE (03:17)
[2018-11-27 05:55] LABS: ALBUMIN 2.6 g/dl (3.4-5.0); ALK PHOS 65 U/L (45-117); ANION GAP 8 MMOL/L (8-16); BILIRUBIN,TOTAL 0.2 mg/dL (0.2-1); BLOOD UREA NITROGEN 8 mg/dL (7-18); CALCIUM 8.6 mg/dL (8.5-10.1); CHLORIDE 105 mmol/L (98-107); CO2 27 mmol/L (21-32); CREATININE 0.6 mg/dL (0.55-1.3); GLUCOSE,RANDOM 106 mg/dL (74-106); POTASSIUM 3.5 mmol/L (3.5-5.1); SGOT/AST 8 U/L (15-37); SGPT/ALT 8 U/L (13-61); SODIUM 140 mmol/L (136-145); TOT PROT 7.3 g/dl (6.4-8.2)
[2018-11-27 06:09] LABS: EOS % 1.9 % (0-4.5); HEMATOCRIT 24.7 % (32.4-45.2); HEMOGLOBIN 8.1 GM/dL (10.7-15.3); LYMPH % 23.1 % (8-40); MCH 24.2 pg (25.7-33.7); MCHC 32.7 g/dl (32.0-36.0); MEAN CELL VOLUME 74.2 fl (80-96); MEAN PLT VOLUME 7.4 fl (7.5-11.1); MONO % 4.5 % (3.8-10.2); NEUT % 69.5 % (42.8-82.8); PLATELET COUNT 628 K/MM3 (134-434); RBC 3.33 M/mm3 (3.60-5.2); RDW 18.1 % (11.6-15.6); WHITE BLOOD COUNT 7.3 K/mm3 (4.0-10.0)
[2018-11-27] MEDS ORDERED: NAPROXEN 500 MG TABLET (FP) PO ONE (07:17)
[2018-11-27] MEDS ORDERED: predniSONE 20 MG TABLET (UD) PO ONE (07:17)
--- NOTE | 2018-11-27 07:20 | PDOC ---
*Physical Exam - Vital Signs Last Vital Signs Temp Pulse Resp BP Pulse Ox 98.4 F 71 17 132/76 98 11/27/18 06:53 11/27/18 06:53 11/27/18 06:53 11/27/18 06:53 11/27/18 06:53 ED Treatment Course - LABORATORY CBC & Chemistry Diagram: 11/27/18 05:18 11/27/18 05:18 - ADDITIONAL ORDERS Additional order review: Laboratory Results 11/27/18 11/27/18 05:18 05:18 WBC 7.3 RBC 3.33 L Hgb 8.1 L Hct 24.7 L D MCV 74.2 L MCH 24.2 L D MCHC 32.7 RDW 18.1 H Plt Count 628 H D MPV 7.4 L Absolute Neuts (auto) 5.0 Neutrophils % 69.5 D Lymphocytes % 23.1 D Monocytes % 4.5 Eosinophils % 1.9 D Basophils % 1.0 Nucleated RBC % 0 Sodium 140 Potassium 3.5 Chloride 105 Carbon Dioxide 27 Anion Gap 8 BUN 8 Creatinine 0.6 Creat Clearance w eGFR > 60 Random Glucose 106 Calcium 8.6 Total Bilirubin 0.2 AST 8 L ALT 8 L Alkaline Phosphatase 65 Troponin I < 0.02 Total Protein 7.3 Albumin 2.6 L 11/27/18 05:18 RBC 3.33 L MCV 74.2 L MCHC 32.7 RDW 18.1 H MPV 7.4 L Neutrophils % 69.5 D Lymphocytes % 23.1 D Monocytes % 4.5 Eosinophils % 1.9 D Basophils % 1.0 - Medications Given in the ED: ED Medications Discontinued Medications Generic Name Dose Route Start Last Admin Trade Name [place] PRN Reason Stop Dose Admin Ketorolac Tromethamine 30 mg 11/27/18 02:53 11/27/18 03:21 Toradol Injection - IM 11/27/18 02:54 30 mg ONCE ONE Administration Medical Decision Making - Medical Decision Making Patient signed out to me by DAKSHA Anders Patient currently resting in NAD, requesting pain medications Patient mentions she has been in rehab before Currently has walker and wheelchair, but states feels she needs more rehab States though she lives with family, she feels like it has become burdensome for her family Patient ordered for her AM home meds: Naprosyn and Prednisone Waiting to hear back from hospitalist team 11/27/18 07:18 Patient admitted under obs serve Dr. Larsen 11/27/18 07:39 *DC/Admit/Observation/Transfer Diagnosis at time of Disposition: Inability to bear weight Ankle pain, right Qualifiers: Chronicity: acute Qualified Code(s): M25.571 - Pain in right ankle and joints of right foot Shoulder pain, right Qualifiers: Chronicity: acute Qualified Code(s): M25.511 - Pain in right shoulder - Discharge Dispostion Condition at time of disposition: Stable Decision to Admit order: Yes - Referrals - Patient Instructions - Post Discharge Activity
[2018-11-27] MEDS ORDERED: predniSONE 20 MG TABLET (UD) ONE (07:30)
[2018-11-27] MEDS ORDERED: NAPROXEN 500 MG TABLET (FP) ONE (07:30)
[2018-11-27] MEDS ORDERED: IRON SUCROSE INJECTION 200 MG in SODIUM CHLORIDE 90 ML IVPB ONE (08:11)
--- NOTE | 2018-11-27 09:44 | HP ---
CHIEF COMPLAINT: unable to ambulate PCP: No PCP currently HISTORY OF PRESENT ILLNESS: 43 y/o F w/PMH of RA and iron def anemia presents to the ER for inability to ambulate. She was walking down the stairs of her building today when she felt her R ankle buckle and had difficulty bearing weight and lowered herself down using banister slowly. No head trauma or LOC reported and was with her daughter at the time. EMS was called and was brought to the ER. She has had progressive worsening of her arthritis over the last 2 weeks and increased swelling in her joints over the last 2 weeks. She has not had her meds for 2 weeks due to not having a PCP or any other medical follow up while moving to [place] 7 months ago from [place]. She also complains of R shoulder pain and decreased ROM in both shoulders. She normally ambulates using walker. She denies any N/V/F/C, EVANS , light-headedness, CP, SOB, abd pain, change in urinary or bowel habits. ER course was notable for: (1) Prednisone, Toradol, Naproxen (2) R Shoulder XR, R ankle/foot XR (3) Recent Travel: No recent travel PAST MEDICAL HISTORY: RA, iron def anemia PAST SURGICAL HISTORY: Abd ex lap 1995 Social History: Smoking: Currently smokes 1ppd, smokes on and off for most adult life Alcohol: Denies Drugs: Denies Family History: n-c Allergies No Known Allergies Allergy (Verified 11/27/18 01:54) HOME MEDICATIONS: Home Medications Medication Instructions Recorded Calcium Carbonate/Vitamin D3 1 each PO DAILY 07/08/18 [Calcium 600 + Vit D 400 Softgl] Ferrous Sulfate 325 mg PO DAILY 07/08/18 Folic Acid 1 mg PO DAILY 07/08/18 Multivit with Iron,Minerals 1 each PO DAILY 07/08/18 [Compete] Naproxen 500 mg PO Q12H 07/08/18 Prednisone [Deltasone] 20 mg PO DAILY 07/08/18 Vit No.129/Iron/Folic 1 tablet PO DAILY 07/08/18 [ One Daily Tablet] Acetaminophen [Tylenol .Regular 650 mg PO Q4H PRN tablet 07/11/18 Strength -] Methotrexate [Mexate -] 15 mg PO Th@1000 tablet 07/11/18 Nicotine Patch [Nicoderm Patch -] 7 mg TD DAILY patch 07/11/18 Sulfasalazine [Azulfidine En-Tabs 1,000 mg PO BID tablet. 07/11/18 -] REVIEW OF SYSTEMS CONSTITUTIONAL: Absent: fever, chills, diaphoresis, generalized weakness CARDIOVASCULAR: Absent: chest pain, syncope, lightheadedness RESPIRATORY: Absent: cough, shortness of breath, dyspnea with exertion GASTROINTESTINAL: Absent: abdominal pain, nausea, vomiting, diarrhea GENITOURINARY: Absent: dysuria, frequency, urgency, hesitancy, hematuria, flank pain, genital pain MUSCULOSKELETAL: R shoulder pain, R ankle pain NEUROLOGIC: Absent: headache, dizziness PHYSICAL EXAMINATION Vital Signs - 24 hr 11/27/18 11/27/18 00:55 06:53 Temperature 97.6 F 98.4 F Pulse Rate 98 H Pulse Rate [ 71 Right Apical] Respiratory 20 17 Rate Blood Pressure 157/88 Blood Pressure 132/76 [Right Arm] O2 Sat by Pulse 98 98 Oximetry (%) GENERAL: Awake, alert, and fully oriented, in no acute distress. HEAD: Normal with no signs of trauma. EYES: extraocular movements intact, sclera anicteric, conjunctiva clear. EARS, NOSE, THROAT: Ears normal, nares patent, Moist mucous membranes. NECK: Normal range of motion, supple LUNGS: Breath sounds equal, clear to auscultation bilaterally. No wheezes, and no crackles. No accessory muscle use. HEART: Regular rate and rhythm, normal S1 and S2 ABDOMEN: Soft, obese, nontender, not distended, normoactive bowel sounds, no guarding, no rebound, no masses. MUSCULOSKELETAL: Humble necking of b/l hands. Decreased ROM of b/l UE at shoulders. Decreased ROM at b/l ankles. LOWER EXTREMITIES: warm, well-perfused. Swelling at b/l ankles. NEUROLOGICAL: Cranial nerves II-XII grossly intact. Normal speech. Gait not observed. PSYCHIATRIC: Cooperative. Good eye contact. Appropriate mood and affect. SKIN: Warm, dry Laboratory Results - last 24 hr 11/27/18 11/27/18 05:18 05:18 WBC 7.3 RBC 3.33 L Hgb 8.1 L Hct 24.7 L D MCV 74.2 L MCH 24.2 L D MCHC 32.7 RDW 18.1 H Plt Count 628 H D MPV 7.4 L Absolute Neuts (auto) 5.0 Neutrophils % 69.5 D Lymphocytes % 23.1 D Monocytes % 4.5 Eosinophils % 1.9 D Basophils % 1.0 Nucleated RBC % 0 Sodium 140 Potassium 3.5 Chloride 105 Carbon Dioxide 27 Anion Gap 8 BUN 8 Creatinine 0.6 Creat Clearance w eGFR > 60 Random Glucose 106 Calcium 8.6 Total Bilirubin 0.2 AST 8 L ALT 8 L Alkaline Phosphatase 65 Troponin I < 0.02 Total Protein 7.3 Albumin 2.6 L Imaging: R shoulder XR: R glenohumeral joint atrophy. No acute fracture. No dislocation. R ankle/foot XR: pending read Active Medications Enoxaparin Sodium (Lovenox -) 40 mg SQ DAILY NATALYA Ferrous Sulfate (Feosol -) 325 mg PO BIDWM NATALYA Naproxen (Naprosyn -) 500 mg PO BID NATALYA Nicotine (Nicoderm Patch -) 14 mg TD DAILY NATALYA Sulfasalazine (Azulfidine En-Tabs -) 1,000 mg PO BID NATALYA ASSESSMENT/PLAN: 43 y/o F w/PMH of RA and iron def anemia presents to the ER for inability to ambulate. Admitted for observation for RA flare. -RA flare -Rheumatology consult -Sulfasalazine 1000 mg bid -Naproxen 500 mg q12h -PT -Given Toradol, Prednisone, Naproxen in ER. -Will hold off on methotrexate and prednisone and will follow rheum recommendations -f/u foot/ankle XR -Iron deficiency anemia -IV Venofer 200 mg -Fe Sulfate 325 mg bid -Follow H/H, no active signs of bleeding -Thrombocytosis -likely secondary to iron deficiency -continue to monitor -Nicotine dependance -14 mg TD nicotine patch -DVT ppx -Lovenox -FEN -No fluids at this time -Monitor electrolytes -Regular diet -Dispo: admit for observation to m/s. Spoke with social work office and left message for SW covering ER for placement into [facility] for rehab. Visit type - Emergency Visit Emergency Visit: Yes ED Registration Date: 11/27/18 Care time: The patient presented to the Emergency Department on the above date and was hospitalized for further evaluation of their emergent condition. - New Patient This patient is new to me today: Yes Date on this admission: 11/27/18 - Critical Care Critical Care patient: No
[2018-11-27] MEDS: NICOTINE 14 MG/24 HOURS TOPICAL PATCH TD SCH (11:50)
[2018-11-27] MEDS: ENOXAPARIN NA (PORCINE) 40 MG/0.4 ML DISP.SYRIN SQ SCH (11:56)
--- NOTE | 2018-11-27 15:40 | EKG ---
Test Reason : Blood Pressure : / mmHG Vent. Rate : 085 BPM Atrial Rate : 085 BPM P-R Int : 158 ms QRS Dur : 092 ms QT Int : 356 ms P-R-T Axes : 046 045 043 degrees QTc Int : 423 ms POOR DATA QUALITY, INTERPRETATION MAY BE ADVERSELY AFFECTED NORMAL SINUS RHYTHM NONSPECIFIC T WAVE ABNORMALITY ABNORMAL ECG NO PREVIOUS ECGS AVAILABLE Confirmed by KIM CHRISTIANSEN MD ([id number]) on 11/27/2018 3:40:15 PM Referred By: Confirmed By:KIM CHRISTIANSEN MD
[2018-11-27] MEDS: FERROUS SO4 325 MG TABLET (FP) PO SCH (17:10)
[2018-11-27] MEDS: NAPROXEN 500 MG TABLET (FP) PO SCH ×2 (17:10→21:14)
--- NOTE | 2018-11-27 17:13 | PN ---
Teaching Attending Note Name of Resident: Wilson Alejo ATTENDING PHYSICIAN STATEMENT I saw and evaluated the patient. I reviewed the resident's note and discussed the case with the resident. I agree with the resident's findings and plan as documented. SUBJECTIVE: Complains of R knee and L ankle pain/swelling, inability to weight bear. No fever/chills. No history of trauma. OBJECTIVE: Afebrile, Hemodynamically Stable. Last Vital Signs Temp Pulse Resp BP Pulse Ox 98.3 F 76 18 120/72 100 11/27/18 13:43 11/27/18 13:43 11/27/18 13:43 11/27/18 13:43 11/27/18 11:15 HEENT - Atraumatic, Normocephalic Heart - S1, S2, RRR Lungs - clear to auscultation Abdomen - High BMI. Soft, non-tender. Bowel Sounds normal. Neuro - AAO x 3. Tone/Power normal all 4 extremities. MS - bilateral knee and ankle swelling and tenderness. Extremities - no calf tenderness. Boutonniers deformities bilateral hands. Laboratory Results - last 24 hr 11/27/18 11/27/18 05:18 05:18 WBC 7.3 RBC 3.33 L Hgb 8.1 L Hct 24.7 L D MCV 74.2 L MCH 24.2 L D MCHC 32.7 RDW 18.1 H Plt Count 628 H D MPV 7.4 L Absolute Neuts (auto) 5.0 Neutrophils % 69.5 D Lymphocytes % 23.1 D Monocytes % 4.5 Eosinophils % 1.9 D Basophils % 1.0 Nucleated RBC % 0 Sodium 140 Potassium 3.5 Chloride 105 Carbon Dioxide 27 Anion Gap 8 BUN 8 Creatinine 0.6 Creat Clearance w eGFR > 60 Random Glucose 106 Calcium 8.6 Total Bilirubin 0.2 AST 8 L ALT 8 L Alkaline Phosphatase 65 Troponin I < 0.02 Total Protein 7.3 Albumin 2.6 L Current Medications Generic Name Dose Route Start Last Admin Trade Name Freq PRN Reason Stop Dose Admin Enoxaparin Sodium 40 mg 11/27/18 10:00 11/27/18 11:56 Lovenox - SQ Not Given DAILY [facility] Ferrous Sulfate 325 mg 11/27/18 17:30 Feosol - PO BIDWM [facility] Naproxen 500 mg 11/27/18 18:00 Naprosyn - PO BID NATALYA Nicotine 14 mg 11/27/18 10:00 11/27/18 11:50 Nicoderm Patch - TD 14 mg DAILY NATALYA Administration Sulfasalazine 1,000 mg 11/27/18 10:00 11/27/18 11:51 Azulfidine En-Tabs - PO 1,000 mg BID NATALYA Administration Home Medications Medication Instructions Recorded Calcium Carbonate/Vitamin D3 1 each PO DAILY 07/08/18 [Calcium 600 + Vit D 400 Softgl] Ferrous Sulfate 325 mg PO DAILY 07/08/18 Folic Acid 1 mg PO DAILY 07/08/18 Multivit with Iron,Minerals 1 each PO DAILY 07/08/18 [Compete] Naproxen 500 mg PO Q12H 07/08/18 Prednisone [Deltasone] 20 mg PO DAILY 07/08/18 Vit No.129/Iron/Folic 1 tablet PO DAILY 07/08/18 [ One Daily Tablet] Acetaminophen [Tylenol .Regular 650 mg PO Q4H PRN tablet 07/11/18 Strength -] Methotrexate [Mexate -] 15 mg PO Th@1000 tablet 07/11/18 Nicotine Patch [Nicoderm Patch -] 7 mg TD DAILY patch 07/11/18 Sulfasalazine [Azulfidine En-Tabs 1,000 mg PO BID tablet. 07/11/18 -] ASSESSMENT AND PLAN: 43 year old female with history of RA (non-compliant with MTX, Sulfasalazine, Prednisone), Chronic LIANA, presents with inability to weight bear due to knee and ankle pain/swelling as well as R shoulder pain. No history of trauma. 1. Acute RA Flare - sec to non-compliance with anti-rheumatoid meds (recently moved to [place] and was unable to attend her physician's office for refills) Shoulder Xray - R glenohumeral joint arthropathy, no fracture/dislocation. Resume Sulfasalazine, Naproxen Given 1 dose of Prednisone in ED Rheumatology consulted for recommendations regarding steroid and MTX therapy. PT 2. Chronic LIANA with thrombocytosis H/H 2.1/24.3/MCV 74 Thrombocytosis likely sec to Iron deficiency Last [place] 2014 - polyps as per patient. Will give 1 dose IV Venofer and subsequent oral Ferrous Sulfate. Will add Ferritin/Iron studies to earlier labs. 3. Smoker - Counseled - offered Nicotine patch. DVT Px - Lovenox.
--- NOTE | 2018-11-27 20:04 | CONSULT ---
Consult Consult Specialty:: Rheumatology - History of Present Illness History of Present Illness: 43 year old female with a history of rheumatoid arthritis, admitted after right ankle buckling and inability to bear weight. Rheumatoid arthritis, The patient has a 4 year history of arthralgia in multiple joints however she probably has rheumatoid arthritis for a much longer period based on the severity of joint damage.. She was treated by a education faculty member until 9 months ago at [facility]. Apparently she had liver toxicity with Leflunomide and she had never treated with Methotrexate or a biological DMARD. She has not seen a education faculty [facility] as [facility]. She was admitted to this hospital on June 2018 and since then she is in Sulfasalazine 1 gr BID and Methotrexate 15 mg once per week and Prednisone was increased to 20 mg/d. At the present time she rports pain mainly in shoulders and hands. Since she was admitted she has not been able to stand up. She has 3 hours morning stiffness. The patient reports she has an appointment pending with a education faculty member. - History Source History Provided By: Patient, Medical Record - Past Medical History ...LMP: 06/28/18 - Alcohol/Substance Use Hx Alcohol Use: No - Smoking History Smoking history: Never smoked Have you smoked in the past 12 months: No Aproximately how many cigarettes per day: 4 Home Medications - Allergies Allergies/Adverse Reactions: Allergies Allergy/AdvReac Type Severity Reaction Status Date / Time No Known Allergies Allergy Verified 11/27/18 01:54 - Home Medications Home Medications: Ambulatory Orders Calcium Carbonate/Vitamin D3 [Calcium 600 + Vit D 400 Softgl] 1 each PO DAILY Ferrous Sulfate 325 mg PO DAILY 07/08/18 Folic Acid 1 mg PO DAILY 07/08/18 Multivit with Iron,Minerals [Compete] 1 each PO DAILY 07/08/18 Naproxen 500 mg PO Q12H 07/08/18 Prednisone [Deltasone] 20 mg PO DAILY 07/08/18 Vit No.129/Iron/Folic [ One Daily Tablet] 1 tablet PO DAILY Acetaminophen [Tylenol .Regular Strength -] 650 mg PO Q4H PRN tablet 07/11/18 Methotrexate [Mexate -] 15 mg PO Th@1000 tablet 07/11/18 Nicotine Patch [Nicoderm Patch -] 7 mg TD DAILY patch 07/11/18 Sulfasalazine [Azulfidine En-Tabs -] 1,000 mg PO BID tablet. 07/11/18 Review of Systems - Review of Systems Constitutional: reports: Malaise Eyes: reports: No Symptoms HENT: reports: No Symptoms Neck: reports: No Symptoms Cardiovascular: reports: No Symptoms Respiratory: reports: No Symptoms Gastrointestinal: reports: No Symptoms Musculoskeletal: reports: Other (See HPI) Endocrine: reports: No Symptoms Physical Exam Vital Signs: Vital Signs Temperature 98.0 F 11/27/18 19:29 Pulse Rate 77 11/27/18 19:29 Respiratory Rate 18 11/27/18 19:29 Blood Pressure 130/73 11/27/18 19:29 O2 Sat by Pulse Oximetry (%) 100 11/27/18 11:15 Constitutional: Yes: Mild Distress Eyes: Yes: WNL HENT: Yes: WNL Neck: Yes: WNL Cardiovascular: Yes: WNL Respiratory: Yes: WNL Gastrointestinal: Yes: WNL Musculoskeletal: Yes: Other (Wrists, MCPs in both hands were swollen. Right 3rd and 4th PIPs. Significant damage in hands with MCP subluxation and Butoniere deformities. Tendenrss and swelling ion both knees. tenderness in ankles.) Labs: CBC, BMP 11/27/18 05:18 11/27/18 05:18 Problem List - Problems (1) Rheumatoid arthritis Assessment/Plan: Sero-positive rheumatoid arthritis not treated adequately for many years and significant damage in multiple joints. Admitted with ankle buckling. She requires higher dose of Methotrexate and treatment with biological DMARDs that hopefully she will get as outpatient once she gets with a scheduled rheumatology appointment. Plan: Increase Methotrexate to 20 mg once per week. Continue Sulfasalazine 1 gr BID. I suggest to start tapering down Prednisone. Code(s): M06.9 - RHEUMATOID ARTHRITIS, UNSPECIFIED
[2018-11-27] MEDS: METHOTREXATE 2.5 MG TABLET PO SCH (22:17)
[2018-11-28 01:28] LABS: URINE APPEARANCE CLOUDY; URINE BILIRUBIN NEGATIVE (<2.0 mg/dL); URINE COLOR YELLOW; URINE GLUCOSE (UA) NEGATIVE (NEGATIVE); URINE KETONE NEGATIVE (NEGATIVE); URINE LEUK ESTERASE 2+ (NEGATIVE); URINE NITRITE NEGATIVE (NEGATIVE); URINE PROTEIN NEGATIVE (NEGATIVE)
[2018-11-28 01:35] LABS: EPI CELLS MODERATE /HPF (FEW); URINE BACTERIA RARE /hpf (NONE SEEN); URINE MUCUS RARE
[2018-11-28 07:52] LABS: BASO % 1.2 % (0-2.0); HEMATOCRIT 23.5 % (32.4-45.2); HEMOGLOBIN 7.8 GM/dL (10.7-15.3); LYMPH % 28.3 % (8-40); MCH 24.7 pg (25.7-33.7); MCHC 33.3 g/dl (32.0-36.0); MEAN CELL VOLUME 74.1 fl (80-96); MEAN PLT VOLUME 7.8 fl (7.5-11.1); MONO % 7.4 % (3.8-10.2); NEUT % 61.1 % (42.8-82.8); PLATELET COUNT 557 K/MM3 (134-434); RBC 3.18 M/mm3 (3.60-5.2); RDW 18.3 % (11.6-15.6)
[2018-11-28] MEDS: FERROUS SO4 325 MG TABLET (FP) PO SCH ×2 (08:17→17:04)
[2018-11-28 08:29] LABS: ALBUMIN 2.4 g/dl (3.4-5.0); ALK PHOS 60 U/L (45-117); ANION GAP 8 MMOL/L (8-16); BILIRUBIN,TOTAL 0.1 mg/dL (0.2-1); BLOOD UREA NITROGEN 10 mg/dL (7-18); CALCIUM 8.4 mg/dL (8.5-10.1); CHLORIDE 107 mmol/L (98-107); CO2 25 mmol/L (21-32); CREATININE 0.6 mg/dL (0.55-1.3); GLUCOSE,RANDOM 93 mg/dL (74-106); PHOSPHOROUS 4.1 mg/dL (2.5-4.9); POTASSIUM 3.8 mmol/L (3.5-5.1); SGOT/AST 11 U/L (15-37); SGPT/ALT 9 U/L (13-61); SODIUM 140 mmol/L (136-145); TOT PROT 6.8 g/dl (6.4-8.2)
[2018-11-28] MEDS ORDERED: PT OWN MED DRAWER 7, Y5N ONE (09:46)
[2018-11-28] MEDS: NICOTINE 14 MG/24 HOURS TOPICAL PATCH TD SCH (09:47)
[2018-11-28] MEDS: predniSONE 5 MG TABLET (UD) PO SCH (09:47)
[2018-11-28] MEDS: FOLIC ACID 1 MG TABLET (FP) PO SCH (09:47)
[2018-11-28] MEDS: ENOXAPARIN NA (PORCINE) 40 MG/0.4 ML DISP.SYRIN SQ SCH ×2 (09:48→09:53)
[2018-11-28] MEDS: NAPROXEN 500 MG TABLET (FP) PO SCH ×2 (09:51→21:23)
--- NOTE | 2018-11-28 14:14 | PN ---
Physical Exam: SUBJECTIVE: Patient seen and examined at bedside. Rheumatologic complaints (pain , stiffness, weakness, fatigue) unchanged. On treatment. No other acute complaints. 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, generalized lower ext weakness b/l PSYCHIATRIC: normal mood, normal affect SKIN: warm, dry, normal turgor Laboratory Results - last 24 hr 11/27/18 11/28/18 11/28/18 05:18 01:15 06:00 WBC 6.0 RBC 3.18 L Hgb 7.8 L Hct 23.5 L MCV 74.1 L MCH 24.7 L MCHC 33.3 RDW 18.3 H Plt Count 557 H MPV 7.8 Absolute Neuts (auto) 3.7 Neutrophils % 61.1 Lymphocytes % 28.3 D Monocytes % 7.4 Eosinophils % 2.0 Basophils % 1.2 Nucleated RBC % 0 ESR Sodium 140 Potassium 3.5 Chloride 105 Carbon Dioxide 27 Anion Gap 8 BUN 8 Creatinine 0.6 Creat Clearance w eGFR > 60 Random Glucose 106 Calcium 8.6 Phosphorus Magnesium Iron Ferritin 32.2 Total Bilirubin 0.2 AST 8 L ALT 8 L Alkaline Phosphatase 65 Troponin I < 0.02 Total Protein 7.3 Albumin 2.6 L Urine Color Yellow Urine Appearance Cloudy Urine pH 5.0 Ur Specific [place] 1.015 Urine Protein Negative Urine Glucose (UA) Negative Urine Ketones Negative Urine Blood 1+ H Urine Nitrite Negative Urine Bilirubin Negative Urine Urobilinogen 2.0 H Ur Leukocyte Esterase 2+ H Urine WBC (Auto) 33 Urine RBC (Auto) 7 Ur Epithelial Cells Moderate Urine Bacteria Rare Urine Mucus Rare 11/28/18 11/28/18 11/28/18 06:00 06:00 06:00 WBC RBC Hgb Hct MCV MCH MCHC RDW Plt Count MPV Absolute Neuts (auto) Neutrophils % Lymphocytes % Monocytes % Eosinophils % Basophils % Nucleated RBC % ESR 112 H Sodium 140 Potassium 3.8 Chloride 107 Carbon Dioxide 25 Anion Gap 8 BUN 10 Creatinine 0.6 Creat Clearance w eGFR > 60 Random Glucose 93 Calcium 8.4 L Phosphorus 4.1 Magnesium 2.0 Iron Cancelled Ferritin Total Bilirubin 0.1 L AST 11 L ALT 9 L Alkaline Phosphatase 60 Troponin I Total Protein 6.8 Albumin 2.4 L Urine Color Urine Appearance Urine pH Ur Specific [place] Urine Protein Urine Glucose (UA) Urine Ketones Urine Blood Urine Nitrite Urine Bilirubin Urine Urobilinogen Ur Leukocyte Esterase Urine WBC (Auto) Urine RBC (Auto) Ur Epithelial Cells Urine Bacteria Urine Mucus Active Medications Generic Name Dose Route Start Last Admin Trade Name Freq PRN Reason Stop Dose Admin Enoxaparin Sodium 40 mg 11/27/18 10:00 11/28/18 09:53 Lovenox - SQ Not Given DAILY [facility] Ferrous Sulfate 325 mg 11/27/18 17:30 11/28/18 08:17 Feosol - PO 325 mg BIDWM NATALYA Administration Folic Acid 1 mg 11/28/18 10:00 11/28/18 09:47 Folic Acid - PO 1 mg DAILY NATALYA Administration Methotrexate 20 mg 11/27/18 20:15 11/27/18 22:17 Mexate - PO 20 mg Th@1000 NATALYA Administration Naproxen 500 mg 11/27/18 18:00 11/28/18 09:51 Naprosyn - PO 500 mg BID NATALYA Administration Nicotine 14 mg 11/27/18 10:00 11/28/18 09:47 Nicoderm Patch - TD 14 mg DAILY NATALYA Administration Prednisone 15 mg 11/28/18 10:00 11/28/18 09:47 Deltasone - PO 15 mg DAILY NATALYA Administration Sulfasalazine 1,000 mg 11/27/18 10:00 11/28/18 09:48 Azulfidine En-Tabs - PO 1,000 mg BID NATALYA Administration ASSESSMENT/PLAN: 43 y/o F w/ PMHx RA and iron def anemia p/w progressive weakness and inability to ambulate after fall, admitted for obs for RA flare. #RA flare -Pt relocated from [place] to [place] several months ago and has not been able to re-establish care, has been of DMARDs -Rheumatology consulted, Dr. Pedroza following -imaging negative -cont sulfasalazine, prednisone, MTX, Naproxen #Iron deficiency anemia -IV Venofer 200 mg -Fe Sulfate 325 mg bid -Follow H/H, no active signs of bleeding -Thrombocytosis -likely secondary to iron deficiency -continue to monitor CBC #Nicotine dependance -14 mg TD nicotine patch #asymptomatic bacteruria -mildly positive UA: 2+ LE, 33 WBC, negative nitrites -no dysuric symptoms -no Tx at this time, recommend outpt f/u #PPx -DVT: Lovenox -GI: Zantac #FEN -No IVF -monitor and correct electrolytes -regular diet #code -full #dispo -cont to monitor on m/s obs -awaiting SNF placement Visit type - Emergency Visit Emergency Visit: No - New Patient This patient is new to me today: No - Critical Care Critical Care patient: No
[2018-11-28] MEDS: RANITIDINE HCL 150 MG TABLET (FP) PO SCH (15:02)
--- NOTE | 2018-11-28 17:13 | PN ---
Teaching Attending Note Name of Resident: Diogo Avila ATTENDING PHYSICIAN STATEMENT I saw and evaluated the patient. I reviewed the resident's note and discussed the case with the resident. I agree with the resident's findings and plan as documented. SUBJECTIVE: Complains of knee and ankle pain/swelling, inability to weight bear. No fever/chills. No history of trauma. OBJECTIVE: Afebrile, Hemodynamically Stable. Last Vital Signs Temp Pulse Resp BP Pulse Ox 98.7 F 71 18 121/69 96 11/28/18 13:37 11/28/18 13:37 11/28/18 13:37 11/28/18 13:37 11/28/18 09:00 HEENT - Atraumatic, Normocephalic Heart - S1, S2, RRR Lungs - clear to auscultation Abdomen - High BMI. Soft, non-tender. Bowel Sounds normal. Neuro - AAO x 3. Tone/Power normal all 4 extremities. MS - bilateral knee and ankle swelling and tenderness. Extremities - no calf tenderness. Boutonnier's and swan-neck deformities bilateral hands. Laboratory Results - last 24 hr 11/27/18 11/28/18 11/28/18 05:18 01:15 06:00 WBC 6.0 RBC 3.18 L Hgb 7.8 L Hct 23.5 L MCV 74.1 L MCH 24.7 L MCHC 33.3 RDW 18.3 H Plt Count 557 H MPV 7.8 Absolute Neuts (auto) 3.7 Neutrophils % 61.1 Lymphocytes % 28.3 D Monocytes % 7.4 Eosinophils % 2.0 Basophils % 1.2 Nucleated RBC % 0 ESR Sodium 140 Potassium 3.5 Chloride 105 Carbon Dioxide 27 Anion Gap 8 BUN 8 Creatinine 0.6 Creat Clearance w eGFR > 60 Random Glucose 106 Calcium 8.6 Phosphorus Magnesium Iron Ferritin 32.2 Total Bilirubin 0.2 AST 8 L ALT 8 L Alkaline Phosphatase 65 Troponin I < 0.02 Total Protein 7.3 Albumin 2.6 L Urine Color Yellow Urine Appearance Cloudy Urine pH 5.0 Ur Specific [place] 1.015 Urine Protein Negative Urine Glucose (UA) Negative Urine Ketones Negative Urine Blood 1+ H Urine Nitrite Negative Urine Bilirubin Negative Urine Urobilinogen 2.0 H Ur Leukocyte Esterase 2+ H Urine WBC (Auto) 33 Urine RBC (Auto) 7 Ur Epithelial Cells Moderate Urine Bacteria Rare Urine Mucus Rare 02/15/19 02/15/19 02/15/19 06:00 06:00 06:00 WBC RBC Hgb Hct MCV MCH MCHC RDW Plt Count MPV Absolute Neuts (auto) Neutrophils % Lymphocytes % Monocytes % Eosinophils % Basophils % Nucleated RBC % ESR 112 H Sodium 140 Potassium 3.8 Chloride 107 Carbon Dioxide 25 Anion Gap 8 BUN 10 Creatinine 0.6 Creat Clearance w eGFR > 60 Random Glucose 93 Calcium 8.4 L Phosphorus 4.1 Magnesium 2.0 Iron Cancelled Ferritin Total Bilirubin 0.1 L AST 11 L ALT 9 L Alkaline Phosphatase 60 Troponin I Total Protein 6.8 Albumin 2.4 L Urine Color Urine Appearance Urine pH Ur Specific [place] Urine Protein Urine Glucose (UA) Urine Ketones Urine Blood Urine Nitrite Urine Bilirubin Urine Urobilinogen Ur Leukocyte Esterase Urine WBC (Auto) Urine RBC (Auto) Ur Epithelial Cells Urine Bacteria Urine Mucus Current Medications Generic Name Dose Route Start Last Admin Trade Name Freq PRN Reason Stop Dose Admin Enoxaparin Sodium 40 mg 11/27/18 10:00 11/28/18 09:53 Lovenox - SQ Not Given DAILY [facility] Ferrous Sulfate 325 mg 11/27/18 17:30 11/28/18 17:04 Feosol - PO 325 mg BIDWM NATALYA Administration Folic Acid 1 mg 11/28/18 10:00 11/28/18 09:47 Folic Acid - PO 1 mg DAILY NATALYA Administration Methotrexate 20 mg 11/27/18 20:15 11/27/18 22:17 Mexate - PO 20 mg Th@1000 NATALYA Administration Naproxen 500 mg 11/27/18 18:00 11/28/18 09:51 Naprosyn - PO 500 mg BID NATALYA Administration Nicotine 14 mg 11/27/18 10:00 11/28/18 09:47 Nicoderm Patch - TD 14 mg DAILY NATALYA Administration Prednisone 15 mg 11/28/18 10:00 11/28/18 09:47 Deltasone - PO 15 mg DAILY NATALYA Administration Ranitidine HCl 150 mg 11/28/18 14:15 11/28/18 15:02 Zantac - PO 150 mg DAILY NATALYA Administration Sulfasalazine 1,000 mg 11/27/18 10:00 11/28/18 09:48 Azulfidine En-Tabs - PO 1,000 mg BID NATALYA Administration ASSESSMENT AND PLAN: 43 year old female with history of RA (non-compliant with MTX, Sulfasalazine, Prednisone), Chronic LIANA, presents with inability to weight bear due to knee and ankle pain/swelling as well as R shoulder pain. No history of trauma. 1. Acute RA Flare - sec to non-compliance with anti-rheumatoid meds (recently moved to [place] and was unable to attend her physician's office for refills) Shoulder Xray - R glenohumeral joint arthropathy, no fracture/dislocation. Resumed on Sulfasalazine, Naproxen, Prednisone, and once weekly Methotrexate. Rheumatology evaluated and recommends re-initiating home meds and slow tapering of Prednisone. PT and likely rehab placement 2. Chronic LIANA with thrombocytosis H/H 7.8/23.5/MCV 74.1 Thrombocytosis likely sec to Iron deficiency Last [place] 2014 - polyps as per patient. Given 1 dose IV Venofer and placed on oral Ferrous Sulfate. Further GI work-up as out-patient. 3. Smoker - Counseled - offered Nicotine patch. DVT Px - Lovenox.
[2018-11-28] MEDS ORDERED: oxyCODONE HCL 5 MG TABLET PO ONE (21:52)
[2018-11-29 09:29] LABS: BASO % 0.5 % (0-2.0); HEMATOCRIT 25.3 % (32.4-45.2); HEMOGLOBIN 8.1 GM/dL (10.7-15.3); LYMPH % 25.8 % (8-40); MCH 24.1 pg (25.7-33.7); MCHC 32.2 g/dl (32.0-36.0); MEAN CELL VOLUME 74.7 fl (80-96); MEAN PLT VOLUME 7.2 fl (7.5-11.1); MONO % 5.4 % (3.8-10.2); NEUT % 67.3 % (42.8-82.8); PLATELET COUNT 606 K/MM3 (134-434); RBC 3.38 M/mm3 (3.60-5.2); WHITE BLOOD COUNT 7.5 K/mm3 (4.0-10.0)
[2018-11-29] MEDS: predniSONE 5 MG TABLET (UD) PO SCH (10:33)
[2018-11-29] MEDS: FERROUS SO4 325 MG TABLET (FP) PO SCH ×2 (10:33→18:45)
[2018-11-29] MEDS: NAPROXEN 500 MG TABLET (FP) PO SCH ×2 (10:34→21:29)
[2018-11-29] MEDS: ENOXAPARIN NA (PORCINE) 40 MG/0.4 ML DISP.SYRIN SQ SCH (10:34)
[2018-11-29] MEDS: FOLIC ACID 1 MG TABLET (FP) PO SCH (10:34)
[2018-11-29] MEDS: RANITIDINE HCL 150 MG TABLET (FP) PO SCH (10:35)
[2018-11-29] MEDS: NICOTINE 14 MG/24 HOURS TOPICAL PATCH TD SCH (10:35)
[2018-11-29 10:46] LABS: ANION GAP 8 MMOL/L (8-16); BLOOD UREA NITROGEN 14 mg/dL (7-18); CALCIUM 8.2 mg/dL (8.5-10.1); CHLORIDE 106 mmol/L (98-107); CO2 26 mmol/L (21-32); CREATININE 0.5 mg/dL (0.55-1.3); GLUCOSE,RANDOM 89 mg/dL (74-106); PHOSPHOROUS 3.2 mg/dL (2.5-4.9); POTASSIUM 4.1 mmol/L (3.5-5.1); SODIUM 140 mmol/L (136-145)
[2018-11-29] MEDS: ACETAMINOPHEN 325 MG TABLET (FP) PO PRN (15:34)
--- NOTE | 2018-11-29 15:48 | PN ---
Physical Exam: SUBJECTIVE: Patient reports she is still having some pain. She has not been able to walk with PT yet. No complaints overnight. OBJECTIVE: Vital Signs Temperature 98.1 F 11/29/18 13:36 Pulse Rate 67 11/29/18 13:36 Respiratory Rate 18 11/29/18 13:36 Blood Pressure 147/76 11/29/18 13:36 O2 Sat by Pulse Oximetry (%) 98 11/29/18 09:00 GENERAL: The patient is awake, alert, and fully oriented, in no acute distress. HEAD: Normal with no signs of trauma. EYES: PERRL, extraocular movements intact LUNGS: Breath sounds equal, clear to auscultation bilaterally, HEART: Regular rate and rhythm, S1, S2 without murmur, rub or gallop. ABDOMEN: Soft, nontender, nondistended, normoactive bowel sounds, umbilical reproducible hernia EXTREMITIES: mild edema around left ankle, RA deformities through out fingers and toes PSYCH: Normal mood, normal affect. SKIN: Warm, dry, normal turgor, no rashes or lesions noted CBC, BMP 11/29/18 07:49 11/29/18 07:49 Active Medications Acetaminophen (Tylenol -) 650 mg PO Q6H PRN PRN Reason: PAIN LEVEL 6-10 Last Admin: 11/29/18 15:34 Dose: 650 mg Enoxaparin Sodium (Lovenox -) 40 mg SQ DAILY [facility] Last Admin: 11/29/18 10:34 Dose: Not Given Ferrous Sulfate (Feosol -) 325 mg PO BIDWM [facility] Last Admin: 11/29/18 10:33 Dose: 325 mg Folic Acid (Folic Acid -) 1 mg PO DAILY [facility] Last Admin: 11/29/18 10:34 Dose: 1 mg Methotrexate (Mexate -) 20 mg PO Th@1000 [facility] Last Admin: 11/27/18 22:17 Dose: 20 mg Naproxen (Naprosyn -) 500 mg PO BID [facility] Last Admin: 11/29/18 10:34 Dose: 500 mg Nicotine (Nicoderm Patch -) 14 mg TD DAILY [facility] Last Admin: 11/29/18 10:35 Dose: 14 mg Prednisone (Deltasone -) 15 mg PO DAILY [facility] Last Admin: 11/29/18 10:33 Dose: 15 mg Ranitidine HCl (Zantac -) 150 mg PO DAILY [facility] Last Admin: 11/29/18 10:35 Dose: 150 mg Sulfasalazine (Azulfidine En-Tabs -) 1,000 mg PO BID [facility] Last Admin: 11/29/18 10:33 Dose: 1,000 mg ASSESSMENT/PLAN: Patient is a 43 y/o with a history of RA and iron deficiency anemia who is admitted for a RA flare. #RA flare - sulfasalazine 1,000 mg bid - methotrexate 20 mg th@1000 - naproxen 500 mg po bid - prednisone 15 mg po daily - would like earlier appointment for lens cutter; call Dr. Pham ), not open on saturday - tylenol as needed for pain #iron deficency anemia - ferrous sulfate 325 mg po - folic acid 1 mg po daily #nicotine - 14 mg td daily FEN - monitor lytes DVT ppx - lovenox 40 mg sq daily Dispo: waiting for placement Visit type - Emergency Visit Emergency Visit: No - New Patient This patient is new to me today: Yes Date on this admission: 11/29/18 - Critical Care Critical Care patient: No
--- NOTE | 2018-11-29 19:19 | PN ---
Teaching Attending Note Name of Resident: Dolly Flores ATTENDING PHYSICIAN STATEMENT I saw and evaluated the patient. I reviewed the resident's note and discussed the case with the resident. I agree with the resident's findings and plan as documented. SUBJECTIVE: Complains of ongoing L knee and R ankle pain/swelling, inability to weight bear. No fever/chills. No history of trauma. OBJECTIVE: Afebrile, Hemodynamically Stable. Last Vital Signs Temp Pulse Resp BP Pulse Ox 98.1 F 67 18 147/76 98 11/29/18 13:36 11/29/18 13:36 11/29/18 13:36 11/29/18 13:36 11/29/18 09:00 Heart - S1, S2, RRR Lungs - clear to auscultation Abdomen - High BMI. Soft, non-tender. Ventral hernia. Bowel Sounds normal. Neuro - AAO x 3. Tone/Power normal all 4 extremities. MS - bilateral knee and ankle swelling and tenderness. Extremities - no calf tenderness. Boutonnier's and swan-neck deformities bilateral hands. Laboratory Results - last 24 hr 11/29/18 11/29/18 07:49 07:49 WBC 7.5 RBC 3.38 L Hgb 8.1 L Hct 25.3 L MCV 74.7 L MCH 24.1 L MCHC 32.2 RDW 18.0 H Plt Count 606 H MPV 7.2 L Absolute Neuts (auto) 5.0 Neutrophils % 67.3 Lymphocytes % 25.8 Monocytes % 5.4 Eosinophils % 1.0 Basophils % 0.5 Nucleated RBC % 0 Sodium 140 Potassium 4.1 Chloride 106 Carbon Dioxide 26 Anion Gap 8 BUN 14 Creatinine 0.5 L Creat Clearance w eGFR > 60 Random Glucose 89 Calcium 8.2 L Phosphorus 3.2 Magnesium 2.0 Current Medications Generic Name Dose Route Start Last Admin Trade Name Freq PRN Reason Stop Dose Admin Acetaminophen 650 mg 11/29/18 14:56 11/29/18 15:34 Tylenol - PO 650 mg Q6H PRN Administration PAIN LEVEL 6-10 Enoxaparin Sodium 40 mg 11/27/18 10:00 11/29/18 10:34 Lovenox - SQ Not Given DAILY [facility] Ferrous Sulfate 325 mg 11/27/18 17:30 11/29/18 18:45 Feosol - PO Not Given BIDWM [facility] Folic Acid 1 mg 11/28/18 10:00 11/29/18 10:34 Folic Acid - PO 1 mg DAILY NATALYA Administration Methotrexate 20 mg 11/27/18 20:15 11/27/18 22:17 Mexate - PO 20 mg Th@1000 NATALYA Administration Naproxen 500 mg 11/27/18 18:00 11/29/18 10:34 Naprosyn - PO 500 mg BID NATALYA Administration Nicotine 14 mg 11/27/18 10:00 11/29/18 10:35 Nicoderm Patch - TD 14 mg DAILY NATALYA Administration Prednisone 15 mg 11/28/18 10:00 11/29/18 10:33 Deltasone - PO 15 mg DAILY NATALYA Administration Ranitidine HCl 150 mg 11/28/18 14:15 11/29/18 10:35 Zantac - PO 150 mg DAILY NATALYA Administration Sulfasalazine 1,000 mg 11/27/18 10:00 11/29/18 10:33 Azulfidine En-Tabs - PO 1,000 mg BID NATALYA Administration ASSESSMENT AND PLAN: 43 year old female with history of RA (non-compliant with MTX, Sulfasalazine, Prednisone), Chronic LIANA, presents with inability to weight bear due to knee and ankle pain/swelling as well as R shoulder pain. No history of trauma. 1. Acute RA Flare - sec to non-compliance with anti-rheumatoid meds (recently moved to [place] and was unable to attend her physician's office for refills) Shoulder Xray - R glenohumeral joint arthropathy, no fracture/dislocation. Rheumatology evaluated and recommended re-initiating home meds and slow tapering of oral Prednisone. Resumed on Sulfasalazine, Naproxen, Prednisone, and once weekly Methotrexate. PT ongoing - awaiting rehab placement 2. Chronic LIANA with thrombocytosis H/H 8.1/25.3/MCV 74.7 Thrombocytosis likely sec to Iron deficiency Last [place] 2014 - polyps as per patient. Given 1 dose IV Venofer and placed on oral Ferrous Sulfate. Further GI work-up as out-patient. 3. Smoker - Counseled - offered Nicotine patch. DVT Px - Lovenox.
[2018-11-30 07:40] LABS: HEMATOCRIT 25.3 % (32.4-45.2); HEMOGLOBIN 8.3 GM/dL (10.7-15.3); MCH 24.9 pg (25.7-33.7); MCHC 32.9 g/dl (32.0-36.0); MEAN CELL VOLUME 75.9 fl (80-96); MEAN PLT VOLUME 7.3 fl (7.5-11.1); PLATELET COUNT 599 K/MM3 (134-434); RBC 3.34 M/mm3 (3.60-5.2); RDW 18.2 % (11.6-15.6); WHITE BLOOD COUNT 5.7 K/mm3 (4.0-10.0)
[2018-11-30 08:33] LABS: ALBUMIN 2.5 g/dl (3.4-5.0); ALK PHOS 57 U/L (45-117); ANION GAP 7 MMOL/L (8-16); BILIRUBIN,TOTAL < 0.1 mg/dL (0.2-1); BLOOD UREA NITROGEN 12 mg/dL (7-18); CALCIUM 8.3 mg/dL (8.5-10.1); CHLORIDE 106 mmol/L (98-107); CO2 26 mmol/L (21-32); CREATININE 0.5 mg/dL (0.55-1.3); GLUCOSE,RANDOM 78 mg/dL (74-106); POTASSIUM 4.4 mmol/L (3.5-5.1); SGOT/AST 17 U/L (15-37); SGPT/ALT 10 U/L (13-61); SODIUM 139 mmol/L (136-145)
[2018-11-30] MEDS: FERROUS SO4 325 MG TABLET (FP) PO SCH ×2 (08:35→16:34)
[2018-11-30] MEDS: NAPROXEN 500 MG TABLET (FP) PO SCH ×2 (10:33→21:36)
[2018-11-30] MEDS: ACETAMINOPHEN 325 MG TABLET (FP) PO PRN ×2 (10:34→20:16)
[2018-11-30] MEDS: predniSONE 5 MG TABLET (UD) PO SCH (10:37)
[2018-11-30] MEDS: FOLIC ACID 1 MG TABLET (FP) PO SCH (10:38)
[2018-11-30] MEDS: NICOTINE 14 MG/24 HOURS TOPICAL PATCH TD SCH (10:38)
[2018-11-30] MEDS: RANITIDINE HCL 150 MG TABLET (FP) PO SCH (10:39)
[2018-11-30] MEDS ORDERED: FUROSEMIDE 40 MG TABLET (FP) PO ONE ×2 (11:30→16:45)
[2018-11-30] MEDS: ENOXAPARIN NA (PORCINE) 40 MG/0.4 ML DISP.SYRIN SQ SCH (14:35)
--- NOTE | 2018-11-30 19:18 | PN ---
Progress Note (short form) - Note Progress Note: SUBJECTIVE: Complains of ongoing L knee and R ankle pain and LE swelling, inability to weight bear. No fever/chills. No history of trauma. OBJECTIVE: Afebrile, Hemodynamically Stable. Last Vital Signs Temp Pulse Resp BP Pulse Ox 98.3 F 77 18 130/83 98 11/30/18 18:24 11/30/18 18:24 11/30/18 18:24 11/30/18 18:24 11/30/18 01:00 Heart - S1, S2, RRR Lungs - clear to auscultation Abdomen - High BMI. Soft, non-tender. Ventral hernia. Bowel Sounds normal. Neuro - AAO x 3. Tone/Power normal all 4 extremities. MS - bilateral knee and ankle swelling and tenderness. Extremities - no calf tenderness. Boutonnier's and swan-neck deformities bilateral hands. Laboratory Results - last 24 hr 11/30/18 11/30/18 06:20 06:20 WBC 5.7 RBC 3.34 L Hgb 8.3 L Hct 25.3 L MCV 75.9 L MCH 24.9 L MCHC 32.9 RDW 18.2 H Plt Count 599 H MPV 7.3 L Sodium 139 Potassium 4.4 Chloride 106 Carbon Dioxide 26 Anion Gap 7 L BUN 12 Creatinine 0.5 L Creat Clearance w eGFR > 60 Random Glucose 78 Calcium 8.3 L Total Bilirubin < 0.1 L AST 17 ALT 10 L Alkaline Phosphatase 57 Total Protein 7.0 Albumin 2.5 L Current Medications Generic Name Dose Route Start Last Admin Trade Name Freq PRN Reason Stop Dose Admin Acetaminophen 650 mg 11/29/18 14:56 11/30/18 10:34 Tylenol - PO 650 mg Q6H PRN Administration PAIN LEVEL 6-10 Enoxaparin Sodium 40 mg 11/27/18 10:00 11/30/18 14:35 Lovenox - SQ Not Given DAILY [facility] Ferrous Sulfate 325 mg 11/27/18 17:30 11/30/18 16:34 Feosol - PO 325 mg BIDWM NATALYA Administration Folic Acid 1 mg 11/28/18 10:00 11/30/18 10:38 Folic Acid - PO 1 mg DAILY NATALYA Administration Methotrexate 20 mg 11/27/18 20:15 11/27/18 22:17 Mexate - PO 20 mg Th@1000 NATALYA Administration Naproxen 500 mg 11/27/18 18:00 11/30/18 10:33 Naprosyn - PO 500 mg BID NATALYA Administration Nicotine 14 mg 11/27/18 10:00 11/30/18 10:38 Nicoderm Patch - TD 14 mg DAILY NATALYA Administration Prednisone 15 mg 11/28/18 10:00 11/30/18 10:37 Deltasone - PO 15 mg DAILY NATALYA Administration Ranitidine HCl 150 mg 11/28/18 14:15 11/30/18 10:39 Zantac - PO 150 mg DAILY NATALYA Administration Sulfasalazine 1,000 mg 11/27/18 10:00 11/30/18 10:39 Azulfidine En-Tabs - PO 1,000 mg BID NATALYA Administration ASSESSMENT AND PLAN: 43 year old female with history of RA (non-compliant with MTX, Sulfasalazine, Prednisone), Chronic LIANA, presents with inability to weight bear due to knee and ankle pain/swelling as well as R shoulder pain. No history of trauma. 1. Acute RA Flare - sec to non-compliance with anti-rheumatoid meds (recently moved to [place] and was unable to attend her physician's office for refills) Shoulder Xray - R glenohumeral joint arthropathy, no fracture/dislocation. Rheumatology evaluated and recommended re-initiating home meds and slow tapering of oral Prednisone. Resumed on Sulfasalazine, Naproxen, Prednisone, and once weekly Methotrexate. PT ongoing - awaiting rehab placement Patient complains of LE edema and refers that lasix has helped reduce swelling in the past. No history of CHF. Will give 1 dose Lasix 40mg and get Echo. 2. Chronic LIANA with thrombocytosis H/H 8.3/25.3/MCV 75.9 Thrombocytosis likely sec to Iron deficiency Last [place] 2014 - polyps as per patient. Given 1 dose IV Venofer and placed on oral Ferrous Sulfate. Further GI work-up as out-patient. 3. Smoker - Counseled - offered Nicotine patch. DVT Px - Lovenox. Visit type - Emergency Visit Emergency Visit: Yes ED Registration Date: 11/28/18 Care time: The patient presented to the Emergency Department on the above date and was hospitalized for further evaluation of their emergent condition. - New Patient This patient is new to me today: No - Critical Care Critical Care patient: No - Discharge Referral Referred to [facility] No
[2018-11-30] MEDS ORDERED: PT OWN MED DRAWER 7, Y5N ONE (20:11)
[2018-12-01] MEDS: ACETAMINOPHEN 325 MG TABLET (FP) PO PRN (08:34)
[2018-12-01] MEDS: predniSONE 5 MG TABLET (UD) PO SCH (09:07)
[2018-12-01] MEDS: FERROUS SO4 325 MG TABLET (FP) PO SCH ×2 (09:07→17:06)
[2018-12-01] MEDS: FOLIC ACID 1 MG TABLET (FP) PO SCH (09:07)
[2018-12-01] MEDS: RANITIDINE HCL 150 MG TABLET (FP) PO SCH (09:07)
[2018-12-01] MEDS: NICOTINE 14 MG/24 HOURS TOPICAL PATCH TD SCH (09:07)
[2018-12-01] MEDS: NAPROXEN 500 MG TABLET (FP) PO SCH ×2 (09:08→21:04)
[2018-12-01] MEDS: ENOXAPARIN NA (PORCINE) 40 MG/0.4 ML DISP.SYRIN SQ SCH (09:09)
[2018-12-01] MEDS ORDERED: FUROSEMIDE 40 MG TABLET (FP) PO ONE (12:30)
--- NOTE | 2018-12-01 15:32 | PN ---
Progress Note (short form) - Note Progress Note: Subjective: No acute events overnight. Pt received 1 dose of 40mg PO Lasix due to lower extremity swelling. Pt reports she has this normally at home and will take Lasix PRN when her ankles become edematous. Pt moving better than usual, but still unable to stand. Objective: 12/01/18 06:00 Temperature 98.8 F Pulse Rate 76 Respiratory 20 Rate Blood Pressure 130/80 Gen: NAD, awake, sitting in bed, oriented x3 HEENT: NC/AT, MARCIO, MMM Lungs: CTA b/l no wheezes or rhonchi. On RA Cardiac: RRR no murmurs appreciated ABD: Soft, NT/ND, normoactive BS, large ventral hernia freely reducible with no overlying skin changes Neuro: Nonfocal. Speech normal. gait not observed. 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 Trace to 1+ lower extremity edema with bony malformations of feet. MSK: Continued limited ROM of shoulders, hands and ankles b/l PSYCH: Normal mood and affect, cooperative Skin: Dry, warm, no rashes note. A/P Acute RA Flare Iron deficiency anemia Thrombocytosis Tobacco use --Improving ROM with current regiment --Continue Methotrexate 20mg weekly () --Continue folic acid supplementation while on Methotrexate --Continue Sulfasalazine 1g BID PO --Continue Prednisone 15mg qDaily --Continue Naproxen 500mg BID PO --Rheumatology recommendations appreciated --H/h stable currently --Continue iron supplementation and follow-up studies on an outpatient basis FEN: Fluids: None Electrolyte abnormalities: Lab vacation today Nutrition: Reglar PPX: DVT - Lovenox 40mg SQ GI - not indicated Dispo: awaiting placement into rehab facility; continue physical therapy here Case discussed with Dr. Abilio Reyes, DO - IM PGY-2
--- NOTE | 2018-12-01 17:03 | PN ---
Teaching Attending Note Name of Resident: Jarod Reyes ATTENDING PHYSICIAN STATEMENT I saw and evaluated the patient. I reviewed the resident's note and discussed the case with the resident. I agree with the resident's findings and plan as documented. SUBJECTIVE: Complains of ongoing L knee and R ankle pain and improving bilat LE swelling, inability to weight bear. No fever/chills. No history of trauma. OBJECTIVE: Afebrile, Hemodynamically Stable. Last Vital Signs Temp Pulse Resp BP Pulse Ox 98.2 F 80 20 140/99 100 12/01/18 14:32 12/01/18 14:32 12/01/18 14:32 12/01/18 14:32 12/01/18 09:00 Heart - S1, S2, RRR Lungs - clear to auscultation Abdomen - High BMI. Soft, non-tender. Ventral hernia. Bowel Sounds normal. Neuro - AAO x 3. Tone/Power normal all 4 extremities. MS - bilateral knee and ankle swelling and tenderness. Swelling improved. Extremities - no calf tenderness. Boutonnier's and swan-neck deformities bilateral hands. Current Medications Generic Name Dose Route Start Last Admin Trade Name Freq PRN Reason Stop Dose Admin Acetaminophen 650 mg 11/29/18 14:56 12/01/18 08:34 Tylenol - PO 650 mg Q6H PRN Administration PAIN LEVEL 6-10 Enoxaparin Sodium 40 mg 11/27/18 10:00 12/01/18 09:09 Lovenox - SQ Not Given DAILY NATALYA Ferrous Sulfate 325 mg 11/27/18 17:30 12/01/18 09:07 Feosol - PO 325 mg BIDWM NATALYA Administration Folic Acid 1 mg 11/28/18 10:00 12/01/18 09:07 Folic Acid - PO 1 mg DAILY NATALYA Administration Methotrexate 20 mg 11/27/18 20:15 11/27/18 22:17 Mexate - PO 20 mg Th@1000 NATALYA Administration Naproxen 500 mg 11/27/18 18:00 12/01/18 09:08 Naprosyn - PO 500 mg BID NATALYA Administration Nicotine 14 mg 11/27/18 10:00 12/01/18 09:07 Nicoderm Patch - TD 14 mg DAILY NATALYA Administration Prednisone 15 mg 11/28/18 10:00 12/01/18 09:07 Deltasone - PO 15 mg DAILY NATALYA Administration Ranitidine HCl 150 mg 11/28/18 14:15 12/01/18 09:07 Zantac - PO 150 mg DAILY NATALYA Administration Sulfasalazine 1,000 mg 11/27/18 10:00 12/01/18 09:08 Azulfidine En-Tabs - PO 1,000 mg BID NATALYA Administration ASSESSMENT AND PLAN: 43 year old female with history of RA (non-compliant with MTX, Sulfasalazine, Prednisone), Chronic LIANA, presents with inability to weight bear due to knee and ankle pain/swelling as well as R shoulder pain. No history of trauma. 1. Acute RA Flare - sec to non-compliance with anti-rheumatoid meds (recently moved to [place] and was unable to attend her physician's office for refills) Shoulder Xray - R glenohumeral joint arthropathy, no fracture/dislocation. Rheumatology evaluated and recommended re-initiating home meds and slow tapering of oral Prednisone. Resumed on Sulfasalazine, Naproxen, Prednisone, and once weekly Methotrexate. PT ongoing - awaiting rehab placement Patient complains of LE edema and refers that lasix has helped reduce swelling in the past. No history of CHF. Will give a second one-time dose Lasix 40mg and awaiting Echo. Low suspicion for CHF. 2. Chronic LIANA with thrombocytosis H/H 8.3/25.3/MCV 75.9 Thrombocytosis likely sec to Iron deficiency Last [place] 2014 - polyps as per patient. Ferritin 32, Iron levels pending. Given 1 dose IV Venofer and placed on oral Ferrous Sulfate. Further GI work-up as out-patient. 3. Smoker - Counseled - offered Nicotine patch. DVT Px - Lovenox.
[2018-12-01] MEDS ORDERED: PT OWN MED DRAWER 7, Y5N ONE (17:53)
[2018-12-02 06:50] LABS: HEMATOCRIT 26.7 % (32.4-45.2); HEMOGLOBIN 8.8 GM/dL (10.7-15.3); MCH 25.2 pg (25.7-33.7); MCHC 33.1 g/dl (32.0-36.0); MEAN CELL VOLUME 76.2 fl (80-96); MEAN PLT VOLUME 7.1 fl (7.5-11.1); PLATELET COUNT 591 K/MM3 (134-434); RBC 3.51 M/mm3 (3.60-5.2); RDW 17.9 % (11.6-15.6); WHITE BLOOD COUNT 6.1 K/mm3 (4.0-10.0)
--- NOTE | 2018-12-02 08:25 | PN ---
Physical Exam: SUBJECTIVE: Patient seen and examined at bedside. Rheumatologic complaints (pain , stiffness, weakness, fatigue) improved. On treatment. States Lasix given yesterday improved LE swelling. 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, generalized lower ext weakness b/l PSYCHIATRIC: normal mood, normal affect SKIN: warm, dry, normal turgor Laboratory Results - last 24 hr 12/02/18 06:20 WBC 6.1 RBC 3.51 L Hgb 8.8 L Hct 26.7 L MCV 76.2 L MCH 25.2 L MCHC 33.1 RDW 17.9 H Plt Count 591 H MPV 7.1 L Active Medications Generic Name Dose Route Start Last Admin Trade Name Freq PRN Reason Stop Dose Admin Acetaminophen 650 mg 11/29/18 14:56 12/01/18 08:34 Tylenol - PO 650 mg Q6H PRN Administration PAIN LEVEL 6-10 Enoxaparin Sodium 40 mg 11/27/18 10:00 12/01/18 09:09 Lovenox - SQ Not Given DAILY NATALYA Ferrous Sulfate 325 mg 11/27/18 17:30 12/01/18 17:06 Feosol - PO 325 mg BIDWM NATALYA Administration Folic Acid 1 mg 11/28/18 10:00 12/01/18 09:07 Folic Acid - PO 1 mg DAILY NATALYA Administration Methotrexate 20 mg 11/27/18 20:15 11/27/18 22:17 Mexate - PO 20 mg Th@1000 NATALYA Administration Naproxen 500 mg 11/27/18 18:00 12/01/18 21:04 Naprosyn - PO 500 mg BID NATALYA Administration Nicotine 14 mg 11/27/18 10:00 12/01/18 09:07 Nicoderm Patch - TD 14 mg DAILY NATALYA Administration Prednisone 15 mg 11/28/18 10:00 12/01/18 09:07 Deltasone - PO 15 mg DAILY NATALYA Administration Ranitidine HCl 150 mg 11/28/18 14:15 12/01/18 09:07 Zantac - PO 150 mg DAILY NATALYA Administration Sulfasalazine 1,000 mg 11/27/18 10:00 12/01/18 21:04 Azulfidine En-Tabs - PO 1,000 mg BID NATALYA Administration ASSESSMENT/PLAN: 43 y/o F w/ PMHx RA and iron def anemia p/w progressive weakness and inability to ambulate after fall, admitted for obs for RA flare. #RA flare -Pt relocated from [place] to [place] several months ago and has not been able to re-establish care, has been of DMARDs -Rheumatology consulted, Dr. Pedroza following -imaging negative -cont sulfasalazine, prednisone, MTX, Naproxen #Iron deficiency anemia -Fe Sulfate 325 mg bid -Follow H/H, no active signs of bleeding #Thrombocytosis -likely secondary to iron deficiency -continue to monitor CBC #foot swelling -Pt states improved on Lasix yesterday -echo pending #Nicotine dependance -14 mg TD nicotine patch #asymptomatic bacteruria -mildly positive UA: 2+ LE, 33 WBC, negative nitrites -no dysuric symptoms -no Tx at this time, recommend outpt f/u #PPx -DVT: Lovenox -GI: Zantac #FEN -No IVF -monitor and correct electrolytes -regular diet #code -full #dispo -cont to monitor on m/s -awaiting SNF placement Visit type - Emergency Visit Emergency Visit: No - New Patient This patient is new to me today: No - Critical Care Critical Care patient: No
[2018-12-02] MEDS: ACETAMINOPHEN 325 MG TABLET (FP) PO PRN ×2 (09:23→16:34)
[2018-12-02] MEDS: NICOTINE 14 MG/24 HOURS TOPICAL PATCH TD SCH (09:24)
[2018-12-02] MEDS: predniSONE 5 MG TABLET (UD) PO SCH (09:25)
[2018-12-02] MEDS: FERROUS SO4 325 MG TABLET (FP) PO SCH ×2 (09:25→16:32)
[2018-12-02] MEDS: NAPROXEN 500 MG TABLET (FP) PO SCH ×2 (09:25→21:53)
[2018-12-02] MEDS: RANITIDINE HCL 150 MG TABLET (FP) PO SCH (09:25)
[2018-12-02] MEDS: FOLIC ACID 1 MG TABLET (FP) PO SCH (09:25)
[2018-12-02] MEDS: ENOXAPARIN NA (PORCINE) 40 MG/0.4 ML DISP.SYRIN SQ SCH (09:26)
--- NOTE | 2018-12-02 12:23 | PN ---
Teaching Attending Note Name of Resident: Diogo Avila ATTENDING PHYSICIAN STATEMENT I saw and evaluated the patient. I reviewed the resident's note and discussed the case with the resident. I agree with the resident's findings and plan as documented. SUBJECTIVE:pain has improved in the feet. pedal swelling resolved. denies cp, SOB, fever, chills, N/V/C/D OBJECTIVE: Last Vital Signs Temp Pulse Resp BP Pulse Ox 98.2 F 77 20 140/95 97 12/02/18 08:04 12/02/18 08:04 12/02/18 09:00 12/02/18 08:04 12/02/18 09:00 General NAD Extremities no pedal edema. no bone point tenderness along the ankle. + deformity of the feet ASSESSMENT AND PLAN: 43 year old female with history of RA (non-compliant with MTX, Sulfasalazine, Prednisone), Chronic LIANA, presents with inability to weight bear due to knee and ankle pain/swelling as well as R shoulder pain. No history of trauma. 1. Acute RA Flare - sec to non-compliance with anti-rheumatoid meds (recently moved to [place] and was unable to attend her physician's office for refills). clinically improved. re-started on home medications. steroids titrated down to 15mg with plans to continue until can f/u with rheum in the office. H2 epifanio while on steroids. sulfafalazine, mtx weekly 2. pedal edema- likely due to steroids. given lasix with resolution. echo pending 3. Iron def anemia with thrombocytosis- s/p venofer. on iron supplementation. will need repeat iron studies in 3 motnhs. 4. continious nicotine dependence- nicotine patch 5. Medically optimized for discharge at this time. awaiting bed availability for [facility].
[2018-12-02] MEDS ORDERED: SENNOSIDES/DOCUSATE COMBO (SENNA PLUS) TABLET (UD) PO SCH (22:00)
[2018-12-03] MEDS: ACETAMINOPHEN 325 MG TABLET (FP) PO PRN ×3 (03:37→16:07)
--- NOTE | 2018-12-03 08:33 | PN ---
Physical Exam: SUBJECTIVE: Patient seen and examined at bedside. Rheumatologic complaints (pain , stiffness, weakness, fatigue) improved. On treatment. No further complaints of LE swelling. Newly complains of toothache with onset overnight. OBJECTIVE: Vital Signs Period Temp Pulse Resp BP Sys/Luna Pulse Ox Last 24 Hr 97.8 F-98.3 F 81-92 20-20 126-142/81-87 97-97 GENERAL: A&Ox3, NAD HEENT: NC/AT, PERRLA, EOMI, MMM, broken left lower premolar with associated swelling, no drainage of infectious appearance. 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, generalized lower ext weakness b/l PSYCHIATRIC: normal mood, normal affect SKIN: warm, dry, normal turgor Laboratory Results - last 24 hr 11/27/18 05:18 Iron 47 Active Medications Generic Name Dose Route Start Last Admin Trade Name Freq PRN Reason Stop Dose Admin Acetaminophen 650 mg 11/29/18 14:56 12/03/18 03:37 Tylenol - PO 650 mg Q6H PRN Administration PAIN LEVEL 6-10 Enoxaparin Sodium 40 mg 11/27/18 10:00 12/02/18 09:26 Lovenox - SQ Not Given DAILY [facility] Ferrous Sulfate 325 mg 11/27/18 17:30 12/02/18 16:32 Feosol - PO 325 mg BIDWM NATALYA Administration Folic Acid 1 mg 11/28/18 10:00 12/02/18 09:25 Folic Acid - PO 1 mg DAILY NATALYA Administration Methotrexate 20 mg 11/27/18 20:15 11/27/18 22:17 Mexate - PO 20 mg Th@1000 NATALYA Administration Naproxen 500 mg 11/27/18 18:00 12/02/18 21:53 Naprosyn - PO 500 mg BID NATALYA Administration Nicotine 14 mg 11/27/18 10:00 12/02/18 09:24 Nicoderm Patch - TD 14 mg DAILY NATALYA Administration Prednisone 15 mg 11/28/18 10:00 12/02/18 09:25 Deltasone - PO 15 mg DAILY NATALYA Administration Ranitidine HCl 150 mg 11/28/18 14:15 12/02/18 09:25 Zantac - PO 150 mg DAILY NATALYA Administration Senna/Docusate Sodium 2 tablet 12/02/18 22:00 12/02/18 21:53 Pericolace - PO 12/03/18 15:05 2 tablet HS NATALYA Administration Sulfasalazine 1,000 mg 11/27/18 10:00 12/02/18 21:53 Azulfidine En-Tabs - PO 1,000 mg BID NATALYA Administration ASSESSMENT/PLAN: 43 y/o F w/ PMHx RA and iron def anemia p/w progressive weakness and inability to ambulate after fall, admitted for obs for RA flare. #RA flare -Pt relocated from [place] to [place] several months ago and has not been able to re-establish care, has been of DMARDs -Rheumatology consulted, Dr. Pedroza following -imaging negative -cont sulfasalazine, prednisone, MTX, Naproxen #Iron deficiency anemia -Fe Sulfate 325 mg bid -no further inpt labs unless clinical condition changes #Thrombocytosis -likely secondary to iron deficiency -continue to monitor CBC #foot swelling -no further complaints -echo performed, read pending #dental lesion -no drainage or infectious appearance -one time tramadol, cont tylenol PRN -will need outpt dental f/u #Nicotine dependance -14 mg TD nicotine patch #asymptomatic bacteruria -mildly positive UA: 2+ LE, 33 WBC, negative nitrites -no dysuric symptoms -no Tx at this time, recommend outpt f/u #PPx -DVT: Lovenox -GI: Zantac #FEN -No IVF -monitor and correct electrolytes -regular diet #code -full #dispo -awaiting SNF placement -cont to monitor on m/s if placement is not achieved Visit type - Emergency Visit Emergency Visit: No - New Patient This patient is new to me today: No - Critical Care Critical Care patient: No
[2018-12-03 08:39] LABS: HEMATOCRIT 29.2 % (32.4-45.2); HEMOGLOBIN 9.4 GM/dL (10.7-15.3); MCH 24.6 pg (25.7-33.7); MCHC 32.3 g/dl (32.0-36.0); MEAN PLT VOLUME 7.3 fl (7.5-11.1); PLATELET COUNT 591 K/MM3 (134-434); RBC 3.84 M/mm3 (3.60-5.2); RDW 18.5 % (11.6-15.6); WHITE BLOOD COUNT 8.5 K/mm3 (4.0-10.0)
[2018-12-03] MEDS: FERROUS SO4 325 MG TABLET (FP) PO SCH ×2 (08:39→17:06)
[2018-12-03] MEDS ORDERED: traMADol HCL 50 MG TABLET PO ONE (09:34)
[2018-12-03] MEDS: predniSONE 5 MG TABLET (UD) PO SCH (10:02)
[2018-12-03] MEDS: NICOTINE 14 MG/24 HOURS TOPICAL PATCH TD SCH (10:02)
[2018-12-03] MEDS: ENOXAPARIN NA (PORCINE) 40 MG/0.4 ML DISP.SYRIN SQ SCH ×2 (10:03→10:10)
[2018-12-03] MEDS: NAPROXEN 500 MG TABLET (FP) PO SCH ×2 (10:03→20:59)
[2018-12-03] MEDS: FOLIC ACID 1 MG TABLET (FP) PO SCH (10:03)
[2018-12-03] MEDS: RANITIDINE HCL 150 MG TABLET (FP) PO SCH (10:04)
--- NOTE | 2018-12-03 12:24 | PN ---
Teaching Attending Note Name of Resident: Diogo Avila ATTENDING PHYSICIAN STATEMENT I saw and evaluated the patient. I reviewed the resident's note and discussed the case with the resident. I agree with the resident's findings and plan as documented. SUBJECTIVE: c/o tooth pain from a cracked tooth shes had for some time. denies Cp, SOB, fever, chills, n/V/C/D OBJECTIVE: Last Vital Signs Temp Pulse Resp BP Pulse Ox 98.6 F 93 H 20 130/84 99 12/03/18 10:00 12/03/18 10:00 12/03/18 10:12/03/18 10:12/03/18 09:00 General NAD HEENT L lower jaw premolar with cracked tooth, no pus or bloody discharge. no swelling no facial swelling or erythema ASSESSMENT AND PLAN: 43 year old female with history of RA (non-compliant with MTX, Sulfasalazine, Prednisone), Chronic LIANA, presents with inability to weight bear due to knee and ankle pain/swelling as well as R shoulder pain. No history of trauma. 1. Acute RA Flare - sec to non-compliance with anti-rheumatoid meds (recently moved to [place] and was unable to attend her physician's office for refills). clinically improved. re-started on home medications. steroids titrated down to 15mg with plans to continue until can f/u with rheum in the office. H2 epifanio while on steroids. sulfafalazine, mtx weekly 2. pedal edema- likely due to steroids. given lasix with resolution 3. Iron def anemia with thrombocytosis- s/p venofer. on iron supplementation. will need repeat iron studies in 3 months. 4. continuous nicotine dependence- nicotine patch 5. tooth pain- likely due to cracked tooth. does not appear infected. encouraged to f/u with dentist for further workup 6. Medically optimized for discharge at this time. awaiting bed availability for [facility].
[2018-12-03] MEDS ORDERED: PT OWN MED DRAWER 7, Y5N ONE ×3 (17:04→20:53)
[2018-12-03] MEDS: BENZOCAINE 20 % GEL TUBE MM PRN (19:30)
[2018-12-04] MEDS: ACETAMINOPHEN 325 MG TABLET (FP) PO PRN ×4 (00:16→19:10)
--- NOTE | 2018-12-04 00:26 | ECHO ---
Version: 1 Name: GERALDINE MATHEW Exam: Adult Echocardiogram Study Date: 12/03/2018, 7:42 AM Age: 43 Years MMode/2D Measurements & Calculations IVSd: 1.26 cm LVIDs: 2.9 cm LVIDd: 4.7 cm LVPWd: 0.96 cm LAV (MOD-bp): 56.3 ml Ao root diam: 3.4 cm LA dimension: 3.6 cm Doppler Measurements & Calculations MV E max phillip: 63.1 cm/sec Med E/e': 8.8 MV A max phillip: 62.6 cm/sec Med Peak E' Phillip: 7.2 cm/sec MV E/A: 1.01 Lat E/e': 4.8 Lat Peak E' Phillip: 13.2 cm/sec MR max P.4 mmHg Left Ventricle The left ventricle is normal in size. There is mild concentric left ventricular hypertrophy. The lef t ventricular ejection fraction is normal. Ejection Fraction = 60%. E/A reversal consistent with but n ot diagnostic of poor LV compliance. The left ventricular wall motion is normal. Mitral Valve There is mild mitral valve thickening. There is mild to moderate mitral regurgitation. Aortic Valve There is trivial aortic valve thickening. Pulmonic Valve Mild pulmonic valvular regurgitation. Great Vessels The aortic root is normal size. Pericardium/Pleura There is no pericardial effusion. Summary Statements The left ventricle is normal in size. The left ventricular ejection fraction is normal. Ejection Fraction = 60%. E/A reversal consistent with but not diagnostic of poor LV compliance The left ventricular wall motion is normal. There is mild mitral valve thickening. There is mild to moderate mitral regurgitation. There is mild concentric left ventricular hypertrophy. Mild pulmonic valvular regurgitation. There is trivial aortic valve thickening. The aortic root is normal size. There is no pericardial effusion. Pietro Jenkins MD 12/04/2018, 12:25 AM Ordering Physician: Janak Knox Performed By: Syeda Perez
[2018-12-04] MEDS: BENZOCAINE 20 % GEL TUBE MM PRN (06:51)
--- NOTE | 2018-12-04 08:21 | PN ---
Physical Exam: SUBJECTIVE: Patient seen and examined at bedside. Rheumatologic complaints (pain , stiffness, weakness, fatigue) improved. On treatment. No further complaints of LE swelling. C/o worsening pain and swelling of broken left lower pre-molar. OBJECTIVE: Vital Signs Period Temp Pulse Resp BP Sys/Luna Pulse Ox Last 24 Hr 97.9 F-98.6 F 81-93 20-22 130-152/78-93 99-99 GENERAL: A&Ox3, NAD HEENT: NC/AT, PERRLA, EOMI, MMM, broken left lower premolar with worsening associated swelling and tenderness, may be significant of underlying collection NECK: Normal range of motion, supple, no LAD, no JVD LUNGS: CTA b/l HEART: RRR no m/r/g ABDOMEN: +bs, soft, obese, NT, ND, prominent reducible ventral hernia MUSCULOSKELETAL: [place] neck and boutonniere deformities of hand b/l, decreased ROM of shoulders and ankles b/l EXT: 2+ pulses, wwp, no edema appreciated, pedal swelling appears rheumatologic in character 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, 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, 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, generalized lower ext weakness b/l PSYCHIATRIC: normal mood, normal affect SKIN: warm, dry, normal turgor Laboratory Results - last 24 hr 11/27/18 12/03/18 05:18 08:00 WBC 8.5 RBC 3.84 Hgb 9.4 L Hct 29.2 L MCV 76.0 L MCH 24.6 L MCHC 32.3 RDW 18.5 H Plt Count 591 H MPV 7.3 L Transferrin 184 L Active Medications Generic Name Dose Route Start Last Admin Trade Name Freq PRN Reason Stop Dose Admin Acetaminophen 650 mg 12/03/18 15:45 12/04/18 06:29 Tylenol - PO 650 mg Q4H PRN Administration PAIN LEVEL 6-10 Benzocaine 1 applic 12/03/18 16:13 12/04/18 06:51 Anbesol - MM 1 applic Q6H PRN Administration ORAL PAIN/MOUTH SORES Enoxaparin Sodium 40 mg 11/27/18 10:00 12/03/18 10:10 Lovenox - SQ Not Given DAILY NATALYA Ferrous Sulfate 325 mg 11/27/18 17:30 12/03/18 17:06 Feosol - PO 325 mg BIDWM NATALYA Administration Folic Acid 1 mg 11/28/18 10:00 12/03/18 10:03 Folic Acid - PO 1 mg DAILY NATALYA Administration Methotrexate 20 mg 11/27/18 20:15 11/27/18 22:17 Mexate - PO 20 mg Th@1000 NATALYA Administration Naproxen 500 mg 11/27/18 18:00 12/03/18 20:59 Naprosyn - PO 500 mg BID NATALYA Administration Nicotine 14 mg 11/27/18 10:00 12/03/18 10:02 Nicoderm Patch - TD 14 mg DAILY NATALYA Administration Prednisone 15 mg 11/28/18 10:00 12/03/18 10:02 Deltasone - PO 15 mg DAILY NATALYA Administration Ranitidine HCl 150 mg 11/28/18 14:15 12/03/18 10:04 Zantac - PO 150 mg DAILY NATALYA Administration Sulfasalazine 1,000 mg 11/27/18 10:00 12/03/18 20:59 Azulfidine En-Tabs - PO 1,000 mg BID NATALYA Administration ASSESSMENT/PLAN: 43 y/o F w/ PMHx RA and iron def anemia p/w progressive weakness and inability to ambulate after fall, admitted for obs for RA flare. #RA flare -Pt relocated from [place] to [place] several months ago and has not been able to re-establish care, has been of DMARDs -Rheumatology consulted, Dr. Pedroza following -imaging negative -cont sulfasalazine, prednisone, MTX, Naproxen #Iron deficiency anemia -Fe Sulfate 325 mg bid -no further inpt labs unless clinical condition changes #Thrombocytosis -likely secondary to iron deficiency -continue to monitor CBC #foot swelling -no further complaints -echo performed, read pending #dental lesion -swelling worsening -empiric clindamycin -will need dental f/u #Nicotine dependance -14 mg TD nicotine patch #asymptomatic bacteruria -mildly positive UA: 2+ LE, 33 WBC, negative nitrites -no dysuric symptoms -no Tx at this time, recommend outpt f/u #PPx -DVT: Lovenox -GI: Zantac #FEN -No IVF -monitor and correct electrolytes -regular diet #code -full #dispo -awaiting SNF placement -cont to monitor on m/s if placement is not achieved
[2018-12-04] MEDS: FERROUS SO4 325 MG TABLET (FP) PO SCH ×2 (08:36→16:46)
[2018-12-04] MEDS: NAPROXEN 500 MG TABLET (FP) PO SCH ×2 (09:38→21:14)
[2018-12-04] MEDS: predniSONE 5 MG TABLET (UD) PO SCH (09:38)
[2018-12-04] MEDS: RANITIDINE HCL 150 MG TABLET (FP) PO SCH (09:38)
[2018-12-04] MEDS: FOLIC ACID 1 MG TABLET (FP) PO SCH (09:38)
[2018-12-04] MEDS: NICOTINE 14 MG/24 HOURS TOPICAL PATCH TD SCH (09:38)
[2018-12-04] MEDS: METHOTREXATE 2.5 MG TABLET PO SCH (09:39)
--- NOTE | 2018-12-04 12:11 | PN ---
Teaching Attending Note Name of Resident: Diogo vAila ATTENDING PHYSICIAN STATEMENT I saw and evaluated the patient. I reviewed the resident's note and discussed the case with the resident. I agree with the resident's findings and plan as documented. SUBJECTIVE:c/o increasing pain in the mouth near the cracked tooth. states she spit out "yellow pus" and had metallic taste in her mouth. denies Cp, SOB, fever , chills OBJECTIVE: Last Vital Signs Temp Pulse Resp BP Pulse Ox 98.5 F 91 H 20 126/87 99 12/04/18 10:00 12/04/18 10:00 12/04/18 10:00 12/04/18 10:12/04/18 09:00 General NAD HEENT L lower jaw premolar with cracked tooth, swelling below the tooth with active drainage. very tender. ASSESSMENT AND PLAN: 43 year old female with history of RA (non-compliant with MTX, Sulfasalazine, Prednisone), Chronic LIANA, presents with inability to weight bear due to knee and ankle pain/swelling as well as R shoulder pain. No history of trauma. 1. Acute RA Flare - sec to non-compliance with anti-rheumatoid meds (recently moved to [place] and was unable to attend her physician's office for refills). clinically improved. re-started on home medications. steroids titrated down to 15mg with plans to continue until can f/u with rheum in the office. H2 epifanio while on steroids. sulfafalazine, mtx weekly 2. pedal edema- likely due to steroids. given lasix with resolution 3. Iron def anemia with thrombocytosis- s/p venofer. on iron supplementation. will need repeat iron studies in 3 months. 4. continuous nicotine dependence- nicotine patch 5. tooth pain- likely due to cracked tooth. possible developing infection. will d/c on clindamycin x7 days. instructions to see dentist tomorrow or Saturday the latest for full evaluation. 6. Medically optimized for discharge at this time. awaiting ins. auth for [facility].
[2018-12-04] MEDS ORDERED: CLINDAMYCIN HCL 150 MG CAPSULE (FP) PO ONE (13:15)
--- NOTE | 2018-12-04 15:41 | DS ---
Physical Exam: SUBJECTIVE: Patient seen and examined at bedside. Rheumatologic complaints (pain , stiffness, weakness, fatigue) improved. On treatment. No further complaints of LE swelling. C/o worsening pain and swelling of broken left lower pre-molar. OBJECTIVE: Vital Signs Period Temp Pulse Resp BP Sys/Luna Pulse Ox Last 24 Hr 97.9 F-98.5 F 81-108 18-22 126-152/87-93 99-99 PHYSICAL EXAM GENERAL: A&Ox3, NAD HEENT: NC/AT, PERRLA, EOMI, MMM, broken left lower premolar with worsening associated swelling and tenderness, may be significant of underlying collection NECK: Normal range of motion, supple, no LAD, no JVD LUNGS: CTA b/l HEART: RRR no m/r/g ABDOMEN: +bs, soft, obese, NT, ND, prominent reducible ventral hernia MUSCULOSKELETAL: Elizabeth neck and boutonniere deformities of hand b/l, decreased ROM of shoulders and ankles b/l EXT: 2+ pulses, wwp, no edema appreciated, pedal swelling appears rheumatologic in character NEUROLOGICAL: head machine feeder, motor, 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, generalized lower ext weakness b/l PSYCHIATRIC: normal mood, normal affect SKIN: warm, dry, normal turgor LABS HOSPITAL COURSE: Date of Admission:11/28/18 Patient is a 43 y/o F w/ PMHx RA and iron def anemia who presented with progressive weakness, stiffness, and pain secondary to several months' cessation of DMARDs and resulted in an inability to ambulate. Imaging and labs failed to demonstrate any acute pathologic process. Rheumatology was consulted. She was started on a regimen of sulfasalazine, prednisone, MTX, Naproxen and improved, but required discharge to SNF for further rehabilitation. She was referred to outpatient rheumatology and primary medical care and given instructions for close followup. She was additionally treated with supplemental iron for her anemia and blood counts were stable throughout hospitalization. Her hospitalization was complicated by development of peridontal/gingival pain and swelling at the site of a broken left lower pre-molar. She was prescribed antibiotics in-hospital and upon discharge and given instructions for dental followup. Date of Discharge: 12/04/18 Minutes to complete discharge: 40 Discharge Summary Reason For Visit: RHEUMATOID ARTHRITIS,RIGHT SHOULDER PAIN,RIGHT Current Active Problems Ankle pain, right (Acute) Shoulder pain, right (Acute) Unable to bear weight (Acute) Condition: Stable - Instructions Diet, Activity, Other Instructions: You were evaluated for a flareup of rheumatoid arthritis. You were seen by a weight analyst, Dr. Pedroza, and a regimen of medications for control of the disease was implemented. You have no further active issues that require inpatient hospitalization. You will require close followup and management with a weight analyst. You are being discharged to a [place] [facility] facility for physical rehabilitation. You will be provided with the medications you received in the hospital upon your discharge; these are listed below. Long-term management will be directed by your weight analyst. You have been referred to Dr. Pedroza; please see him or another weight analyst of your choice within one week of discharge. You are also being referred to our internal medicine clinic for outpatient primary medical care. Please make an appointment and follow up within one week of discharge. Additionally, you require follow up with a dentist for the lesion of your left lower tooth. Please make an appointment with a dentist as soon as possible. If you experience any worsening pain, falls , weakness, chest pain, shortness of breath, loss of consciousness, or any other new or concerning symptoms, please return to the Emergency Department. Medication instructions for SNF staff: Methotrexate 20mg PO weekly on Naproxen 500mg PO BID Prednisone 15mg PO daily Folic acid 1mg PO daily Sulfasalazine 1000mg PO BID Ferrous sulfate 325mg PO BIDWM Continue Clindamycin 300mg PO q8h for another 7 days Follow-up: please follow-up with a dentist in one week Referrals: [facility] [place] [Provider Group] Eddie Pedroza MD [Staff Physician] - Disposition: [facility] - Home Medications Comprehensive Discharge Medication List: Ambulatory Orders Ferrous Sulfate [Feosol] 325 mg PO BIDWM ud 11/28/18 Folic Acid - 1 mg PO DAILY tablet 11/28/18 Nicotine Patch [Nicoderm Patch -] 14 mg TD DAILY patch 11/28/18 predniSONE [Deltasone -] 15 mg PO DAILY tablet 11/28/18 Acetaminophen [Tylenol .Regular Strength -] 650 mg PO Q6H PRN tablet 12/02/18 Methotrexate [Mexate -] 20 mg PO Th@1000 tablet 12/02/18 Naproxen [Naprosyn -] 500 mg PO BID tablet 12/02/18 Ranitidine [Zantac -] 150 mg PO DAILY tablet 12/02/18 Sulfasalazine [Azulfidine En-Tabs -] 1,000 mg PO BID tablet. 12/02/18 Clindamycin [Cleocin -] 300 mg PO Q8H #20 capsule 12/04/18 This patient is new to me today: No Emergency Visit: No Critical Care patient: No - Discharge Referral Referred to [facility] No
[2018-12-04] MEDS ORDERED: PT OWN MED DRAWER 7, Y5N ONE (19:09)
[2018-12-04 21:49] VITALS: TEMP 98.1
[2018-12-05] MEDS: ACETAMINOPHEN 325 MG TABLET (FP) PO PRN (05:27)
[2018-12-05] MEDS ORDERED: CLINDAMYCIN HCL 300 MG CAPSULE PO SCH (06:45)
[2018-12-05] MEDS ORDERED: CLINDAMYCIN HCL 150 MG CAPSULE (FP) PO SCH (08:07)
[2018-12-05] MEDS: CLINDAMYCIN HCL 150 MG CAPSULE (FP) PO SCH ×2 (09:53→14:26)
[2018-12-05] MEDS: RANITIDINE HCL 150 MG TABLET (FP) PO SCH (09:54)
[2018-12-05] MEDS: FERROUS SO4 325 MG TABLET (FP) PO SCH ×2 (09:54→17:37)
[2018-12-05] MEDS: NAPROXEN 500 MG TABLET (FP) PO SCH (09:54)
[2018-12-05] MEDS: NICOTINE 14 MG/24 HOURS TOPICAL PATCH TD SCH (09:54)
[2018-12-05] MEDS: predniSONE 5 MG TABLET (UD) PO SCH (09:54)
[2018-12-05] MEDS: FOLIC ACID 1 MG TABLET (FP) PO SCH (09:54)
[2018-12-05 14:37] VITALS: BP 150/82; PULSE 80
== END 2018-12-05 18:00 | DRG 346 ==
LOC: JER 00:54 → JERBED 06:00 → J7W 10:01 → OBSVTOIN 11-28 09:40
PROVIDERS: ATTEND Internal Medicine
DX: M06.9 Rheumatoid arthritis, unspecified (principal); D50.9 Iron deficiency anemia, unspecified; F17.210 Nicotine dependence, cigarettes, uncomplicated; Z91.14 Patient's other noncompliance with medication regimen; E66.9 Obesity, unspecified; Z68.32 Body mass index [BMI] 32.0-32.9, adult; R60.0 Localized edema; T38.0X5A Adverse effect of glucocorticoids and synthetic analogues, initial encounter; Y92.038 Other place in apartment as the place of occurrence of the external cause; K43.9 Ventral hernia without obstruction or gangrene; K03.81 Cracked tooth; R82.71 Bacteriuria
CPT/HCPCS: 36415; 73030-TC-RT-FY; 73610-TC-RT-FY; 73630-TC-RT-FY; 80048; 80053; 81003; 81015; 82728; 83540; 83735; 84100; 84466; 84484; 85025; 85027; 85651; 93005; 93010; 93306-TC; 97116-GP; 97162-GP; 99283-25; G0378; J1756; J8610

== ENCOUNTER 2019-04-06 15:36 | Emergency (ER) | payer OTHER ==
[2019-04-06 15:58] VITALS: BP 147/99; PULSE 96; TEMP 98.6; BMI 36.9
--- NOTE | 2019-04-06 15:58 | PDOC ---
Rapid Medical Evaluation Time Seen by Provider: 04/06/19 15:54 Medical Evaluation: Allergies Allergy/AdvReac Type Severity Reaction Status Date / Time No Known Allergies Allergy Verified 11/27/18 01:54 04/06/19 15:54 I have performed a brief in-person evaluation of this patient. The patient presents with a chief complaint of: right ankle pain s/p fall Pertinent physical exam findings: FAROM of right foot. +2 DP. swelling to right ankle. TTP over medial malleolus. No deformity, crepitus present I have ordered the following: ice, xray The patient will proceed to the ED for further evaluation. Discharge Disposition - Diagnosis Ankle pain, right - Referrals - Patient Instructions - Post Discharge Activity
[2019-04-06] MEDS ORDERED: NAPROXEN 500 MG TABLET (FP) PO ONE (17:00)
--- NOTE | 2019-04-06 17:00 | PDOC ---
History of Present Illness - General Chief Complaint: Injury Stated Complaint: FALL Time Seen by Provider: 04/06/19 15:54 History Source: Patient Exam Limitations: No Limitations - History of Present Illness Initial Comments: 04/06/19 17:05 paper brought in by ambulancewith complaints of worsened pain. Suffers from severe rheumatoid arthritis. Was receiving treatment at physical therapy, rehabilitation facilityin the early spring but had to discontinue treatment due to family illness and . States since that time has had multiple insurance issues and the loss of her primary care physician and has not taken any of her medications since the end of November. 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 Occurred: reports: last week Severity: reports: mild, moderate Pain Location: reports: lower extremity Associated Symptoms (Fall): denies symptoms Past History - Travel Traveled outside of the country in the last 30 days: No Close contact w/someone who was outside of country & ill: No - Past Medical History Allergies/Adverse Reactions: Allergies Allergy/AdvReac Type Severity Reaction Status Date / Time No Known Allergies Allergy Verified 04/06/19 15:54 Home Medications: Ambulatory Orders Naproxen [Naprosyn -] 500 mg PO BID #30 tablet 04/06/19 Anemia: Yes COPD: No - Suicide/Smoking/Psychosocial Hx Smoking History: Never smoked Have you smoked in the past 12 months: No Number of Cigarettes Smoked Daily: 4 Cigars Per Day: 0 'Breaking Loose' booklet given: 07/08/18 Hx Alcohol Use: No Drug/Substance Use Hx: No Substance Use Type: None Hx Substance Use Treatment: No Review of Systems - Review of Systems Able to Perform ROS?: Yes Is the patient limited Azeri proficient: Yes Constitutional: Yes: Symptoms Reported, See HPI, Malaise. No: Fever Musculoskeletal: Yes: Symptoms Reported, See HPI, Joint Pain, Joint Swelling, Muscle Pain Integumentary: No: Symptoms Reported All Other Systems: Reviewed and Negative *Physical Exam - Vital Signs Last Vital Signs Temp Pulse Resp BP Pulse Ox 98.6 F 96 H 18 147/99 99 04/06/19 15:54 04/06/19 15:54 04/06/19 15:54 04/06/19 15:54 04/06/19 15:54 - Physical Exam General Appearance: Yes: Nourished, Appropriately Dressed, Apparent Distress, Disheveled, Mild Distress, Obese (morbid) HEENT: positive: CANDIS, Normal ENT Inspection, TMs Normal, Pharynx Normal Neck: positive: Supple. negative: Tender Respiratory/Chest: positive: Lungs Clear Gastrointestinal/Abdominal: positive: Soft. negative: Tender Musculoskeletal: positive: Normal Inspection, Other Extremity: positive: Normal Capillary Refill, Other (multiple swan-neck deformities on all fingersof both hands. ankles are without point tenderness to medial or lateral malleolus, has some tenderness to midfoot but patient is morbidly obese and primarily nonambulatory.No crepitus or step-offs, negative squeeze test but difficult to assess due to wheelchairand immobility.) Integumentary: positive: Dry, Warm, Swelling. 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 X-ray negative for fractures or dislocation but significant arthritic changes consistent with patient's chronic illness/ rheumatoid arthritis. Que wrap applied and patient will follow-up with PMD/ rheumatology/orthopedist *DC/Admit/Observation/Transfer Diagnosis at time of Disposition: Ankle pain, right Qualifiers: Chronicity: chronic Qualified Code(s): M25.571 - Pain in right ankle and joints of right foot; G89.29 - Other chronic pain Rheumatoid arthritis Qualifiers: Rheumatoid arthritis location: hand Rheumatoid factor presence: unspecified presence Laterality: bilateral Qualified Code(s): M06.9 - Rheumatoid arthritis, unspecified - Discharge Dispostion Disposition: HOME Condition at time of disposition: Stable Decision to Admit order: No - Referrals Referrals: Aleksandar Mcpherson MD [Staff Physician] - Carlos Bedolla MD [Staff Physician] - - Patient Instructions Printed Discharge Instructions: DI for Chronic Pain -- Adult Additional Instructions: Rest, ice to area on and off for 15 minutes 4-6 times a day Avoid heavy lifting or exercise until pain and swelling is resolved or until further directed Keep area highly elevated to reduce swelling Use splints/Que wrap as directed Followup with orthopedist in one to 2 days if not improving, if significantly improved may wait one week for followup with orthopedist May use ibuprofen every 6 hours as needed for pain - Post Discharge Activity Forms/Work/School Notes: Back to Work
[2019-04-06] MEDS ORDERED: NAPROXEN 500 MG TABLET (FP) ONE (17:12)
== END 2019-04-06 21:45 | disposition home or self-care (01) ==
LOC: JERFT 15:36
DX: M25.571 Pain in right ankle and joints of right foot (principal); M06.842 Other specified rheumatoid arthritis, left hand; M06.841 Other specified rheumatoid arthritis, right hand; G89.29 Other chronic pain
CPT/HCPCS: 73610-TC-RT-FY; 73630-TC-RT-FY; 99282-25

== ENCOUNTER 2019-06-14 10:54 | Inpatient (IN) | payer OTHER ==
--- NOTE | 2019-06-14 11:08 | PDOC ---
History of Present Illness - General Chief Complaint: Injury Stated Complaint: FALL Time Seen by Provider: 06/14/19 11:07 - History of Present Illness Initial Comments: 06/14/19 12:08 43 year old woman with a history of advanced RA, iron def anemia and nicotine dependence who presents after a fall in the bathroom. The patient has been off all her RA meds for the past 1 week, since her sister could not clam picker her medications in time. She reports she was in the bathroom right before getting into the shower, when she felt her knees nabor under her. She denies hitting her head or losing consciousness. Her family found her right away and helped her to her bed. She reports pain on the L hand and wrist, R knee and R side of the chest. She has significant pain at the hands, knees and feet from her RA. She was in a Rehab in [facility] 2-3months ago and does not feel she can manage her RA outside of rehab. She has no other complaints. ROS GENERAL/CONSTITUTIONAL: No fever or chills. No weakness. HEAD, EYES, EARS, NOSE AND THROAT: No change in vision. No ear pain or discharge. No sore throat. CARDIOVASCULAR: No chest pain or shortness of breath RESPIRATORY: No cough, wheezing, or hemoptysis. GASTROINTESTINAL: No nausea, vomiting, diarrhea or constipation. GENITOURINARY: No dysuria, frequency, or change in urination. MUSCULOSKELETAL: No neck or back pain. SKIN: No rash NEUROLOGIC: No headache, vertigo, loss of consciousness, or change in strength/ sensation. PE GENERAL: Awake, alert, and fully oriented, in no acute distress HEAD: No signs of trauma, normocephalic, atraumatic EYES: PERRLA, EOMI, sclera anicteric, conjunctiva clear ENT: oropharynx clear without exudates. Moist mucosa NECK: Normal ROM, supple LUNGS: No distress, speaks full sentences, clear to auscultation bilaterally HEART: Regular rate and rhythm, normal S1 and S2, no murmurs, rubs or gallops, peripheral pulses normal and equal bilaterally. ABDOMEN: Soft, nontender, umbilical hernia, No guarding, no rebound. No masses EXTREMITIES : [place] neck defortmiy of the L fingers, defortmities of the bilateral toes NEUROLOGICAL: Cranial nerves II through XII grossly intact. Normal speech, normal gait, no focal sensorimotor deficits SKIN: Warm, Dry, normal turgor, no rashes or lesions noted MDM DDX including but not limited to: Fall r/o fx r/o infectious vs electrolyte W/U: - TX: - Scores: ED Course: XR with 5th subluxation of the digit Discussed with Ortho Dr. Fountain who will evaluate patient inpt and recommends volar splint Patient ambulates with a walker and cannot bear weight at this time due to pain Aide Cifuentes, PGY2 Emergency Medicine Past History - Past Medical History Allergies/Adverse Reactions: Allergies Allergy/AdvReac Type Severity Reaction Status Date / Time No Known Allergies Allergy Verified 04/06/19 15:54 Home Medications: Ambulatory Orders Naproxen [Naprosyn -] 500 mg PO BID #30 tablet 04/06/19 Ferrous Sulfate [Iron] 325 mg PO DAILY 06/14/19 predniSONE [Deltasone -] 15 mg PO DAILY 06/14/19 Anemia: Yes COPD: No - Suicide/Smoking/Psychosocial Hx Smoking History: Never smoked Have you smoked in the past 12 months: No Number of Cigarettes Smoked Daily: 4 Cigars Per Day: 0 'Breaking Loose' booklet given: 07/08/18 Hx Alcohol Use: No Drug/Substance Use Hx: No Substance Use Type: None Hx Substance Use Treatment: No ED Treatment Course - LABORATORY CBC & Chemistry Diagram: 06/14/19 11:47 06/14/19 11:34 *DC/Admit/Observation/Transfer Diagnosis at time of Disposition: Subluxation of left little finger, Rheumatoid arthritis - Discharge Dispostion Decision to Admit order: Yes - Referrals - Patient Instructions - Post Discharge Activity
[2019-06-14 11:19] VITALS: BMI 36.9
[2019-06-14] MEDS ORDERED: SODIUM CHLORIDE 1,000 ML IV SCH (11:45)
[2019-06-14] MEDS ORDERED: ACETAMINOPHEN 1000 MG/100 ML VIAL (NON FORMULARY) IVPB ONE (12:06)
[2019-06-14 12:44] LABS: BASO % 0.8 % (0-2.0); EOS % 1.8 % (0-4.5); HEMOGLOBIN 11.2 GM/dL (10.7-15.3); LYMPH % 12.3 % (8-40); MCH 25.4 pg (25.7-33.7); MEAN PLT VOLUME 7.8 fl (7.5-11.1); MONO % 4.3 % (3.8-10.2); NEUT % 80.8 % (42.8-82.8); PLATELET COUNT 657 K/MM3 (134-434); RBC 4.41 M/mm3 (3.60-5.2); RDW 19.4 % (11.6-15.6); WHITE BLOOD COUNT 6.4 K/mm3 (4.0-10.0)
[2019-06-14] MEDS ORDERED: ACETAMINOPHEN INJECTION 100 ML IVPB ONE (12:44)
[2019-06-14 12:54] LABS: ALBUMIN 2.9 g/dl (3.4-5.0); BILIRUBIN,TOTAL 0.4 mg/dL (0.2-1); BLOOD UREA NITROGEN 12.4 mg/dL (7-18); CALCIUM 9.9 mg/dL (8.5-10.1); CREATININE 0.7 mg/dL (0.55-1.3); POTASSIUM 3.5 mmol/L (3.5-5.1)
--- NOTE | 2019-06-14 13:24 | PDOC ---
Documentation entered by Yrn Devine SCRIBE, acting as scribe for Abdullahi Loera MD. Abdullahi Loera MD: This documentation has been prepared by the Nilson verma Nirvannie, SCRIBE, under my direction and personally reviewed by me in its entirety. I confirm that the documentation accurately reflects all work, treatment, procedures, and medical decision making performed by me. Attending Attestation - Resident Resident Name: Aide Cifuentes - ED Attending Attestation I have performed the following: I have examined & evaluated the patient, The case was reviewed & discussed with the resident, I agree w/resident's findings & plan, Exceptions are as noted - HPI HPI: 06/14/19 12:51 The patient is a 43 year old female, with a significant past medical history of RA and anemia, who presents to the emergency department s/p fall. Pt states her knees buckled while going to the bathroom. Pt landed on her side. Denies headstrike/LOC. She now endorses pain to the left hand, left wrist, right knee, and right hip. Pt was unable to get up on her own afterwards. Denies lightheadedness/dizziness/CP/SOB prior to falling. She denies recent fevers, chills, headache or dizziness. She denies recent nausea, vomit, diarrhea or constipation. She denies recent dysuria, frequency, urgency or hematuria. Allergies: NKDA - Physicial Exam PE: 06/14/19 13:17 Agree with resident exam - Medical Decision Making 06/14/19 13:18 43 F with mechanical fall today. - XRs - Attempt to ambulate 06/14/19 13:18 XR shows subluxation of L 5th MCP Will discuss with ortho 06/14/19 14:48 Pt placed in splint. Pt states she requires walker to ambulate at baseline. Unable to use it in this condition. Will admit to hospital for placement in rehab.
[2019-06-14] MEDS ORDERED: morphine CARPU-JECT 2 MG/1 ML DISP.SYRIN IVPUSH ONE (13:56)
[2019-06-14] MEDS ORDERED: MORPHINE SULFATE 2 MG/ML VIAL ONE (14:15)
--- NOTE | 2019-06-14 16:05 | HP ---
CHIEF COMPLAINT: fall in bathtub PCP: none HISTORY OF PRESENT ILLNESS: 43 yof with PMHx of advanced Rheumatoid arthritis, reportedly on methrotrexate/ prednisone/naprosyn, discharged from [facility] rehab 2-3 weeks ago, since when has not been able to get her methotrexate, also been off her prednisone/ naproxen for 1 week as unable to get her meds, was in bathroom, trying to get out of bathtub when felt weak, unable to get back and felt on her lower back/ buttock/hip region, buckling of her right knee and supported with her right hand. reports has chronic pain from her RA, but worsening left wrist/right hip and right knee pain since the fall. Denies head/neck trauma. Uses walker and wheelchair and has been limited in her ADLs. 12 point ROS done, has noted worsening joint stiffness, pain since being off her medications. Also decreased oral intake but no chest pain, palpitations, dizziness, dyspnea, head trauma. Otherwise neg on 12 point ROS. 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 lives with her children and family, uses walker and wheelchair to ambulate Family History: Allergies No Known Allergies Allergy (Verified 04/06/19 15:54) HOME MEDICATIONS: Home Medications Medication Instructions Recorded Naproxen [Naprosyn -] 500 mg PO BID #30 tablet 04/06/19 Ferrous Sulfate [Iron] 325 mg PO DAILY 06/14/19 predniSONE [Deltasone -] 15 mg PO DAILY 06/14/19 REVIEW OF SYSTEMS 12 point ROS done, per HPI PHYSICAL EXAMINATION Vital Signs - 24 hr 06/14/19 11:17 Temperature 98.6 F Pulse Rate 114 H Respiratory 19 Rate Blood Pressure 148/87 O2 Sat by Pulse 99 Oximetry (%) Intake & Output 06/11/19 06/12/19 06/13/19 06/14/19 23:59 23:59 23:59 23:59 Weight 250 lb GENERAL: Awake, alert, and fully oriented, in no acute distress, obese (BMI 36.9 ). HEAD: Normal with no signs of trauma. EYES: Pupils equal, round and reactive to light, extraocular movements intact, sclera anicteric, conjunctiva clear. No lid lag. EARS, NOSE, THROAT: Ears normal, nares patent, oropharynx clear without exudates. dry mucous membranes. NECK: Normal range of motion, supple, no JVD visualized LUNGS: Breath sounds equal, clear to auscultation bilaterally. No wheezes, and no crackles. No accessory muscle use. HEART: Regular rate and rhythm, normal S1 and S2 without murmur, rub or gallop. ABDOMEN: Soft, obese, NT throughout, ND, no voluntary or involuntary guarding or rigidity, pos bowel sounds MUSCULOSKELETAL: Marked limitation in ROM at bilateral shoulder, knee, wrists, fingers, hips/knees, abduction deformity of the fingers and toes, tenderness of right patellar region, minimal movement of right hip (reports worse since fall) UPPER EXTREMITIES: 2+ pulses, warm, well-perfused. No cyanosis. No clubbing. No peripheral edema, marked deformities as above, left wrist in volar splint, limited ROM. LOWER EXTREMITIES: 2+ pulses, warm, well-perfused. No calf tenderness. No peripheral edema, marked limitation and arthritic changes a kali. NEUROLOGICAL: AAOx3,facial symmetry, tongue midline, speech normal, marked limitation in ROM, power assessment difficult, PSYCHIATRIC: Cooperative. Good eye contact. Appropriate mood and affect. SKIN: Warm, dry, normal turgor, no rashes or lesions noted, normal capillary refill. Laboratory Results - last 24 hr 06/14/19 06/14/19 06/14/19 11:34 11:34 11:47 WBC 6.4 RBC 4.41 Hgb 11.2 Hct 34.0 D MCV 77.0 L MCH 25.4 L MCHC 33.0 RDW 19.4 H Plt Count 657 H MPV 7.8 Absolute Neuts (auto) 5.2 Neutrophils % 80.8 D Lymphocytes % 12.3 D Monocytes % 4.3 Eosinophils % 1.8 Basophils % 0.8 Nucleated RBC % 0 ESR Sodium 138 Potassium 3.5 Chloride 103 Carbon Dioxide 23 Anion Gap 11 BUN 12.4 Creatinine 0.7 Est GFR (CKD-EPI)AfAm 121.27 Est GFR (CKD-EPI)NonAf 104.64 Random Glucose 160 H Calcium 9.9 Total Bilirubin 0.4 AST 19 ALT 13 Alkaline Phosphatase 87 C-Reactive Protein 8.6 H Total Protein 8.0 Albumin 2.9 L 06/14/19 11:47 WBC RBC Hgb Hct MCV MCH MCHC RDW Plt Count MPV Absolute Neuts (auto) Neutrophils % Lymphocytes % Monocytes % Eosinophils % Basophils % Nucleated RBC % ESR 94 H Sodium Potassium Chloride Carbon Dioxide Anion Gap BUN Creatinine Est GFR (CKD-EPI)AfAm Est GFR (CKD-EPI)NonAf Random Glucose Calcium Total Bilirubin AST ALT Alkaline Phosphatase C-Reactive Protein Total Protein Albumin hip/pelvis/Left wrist/hand/right knee xrays results reviewed right patellar displacement, subluxation of fifth digit EKG: NSR 77, QTc 475 ASSESSMENT/PLAN: 43 yof with PMHx of advanced Rheumatoid arthritis, reportedly on methrotrexate/ prednisone/naprosyn, discharged from [facility] rehab 2-3 weeks ago, off meds, comes with fall, suspected acute left 5th digit subluxation, right patellar displacement -Mechanical fall -Acute vs chronic left 5th digit subluxation -Suspected acute right patellar displacement with joint swelling post fall -r/o right hip fracture -Advance Rheumatoid arthritis Plan: Orthopedic Dr. Fountain consulted from ED. Left hand volar splint. CT pelvis/right hip to assess patellar displacement and r/o fracture. NWB RLE/LUE till above work up Pain control tylenol. resume naproxyn/Prednisone. Rheumatology input. ?Resume methotrexate. Check ESR/ CRP. PPI, DVTPPX lovenox PT eval Anticipate will need PT eval pending above work up and clinical improvement. Admit to inpatient medsur. Discussed with patient in detail, all questions answered Care co-ordinated with ED Total admit time 65 min. Visit type - Emergency Visit Emergency Visit: Yes ED Registration Date: 06/14/19 Care time: The patient presented to the Emergency Department on the above date and was hospitalized for further evaluation of their emergent condition. - New Patient This patient is new to me today: Yes Date on this admission: 06/14/19 - Critical Care Critical Care patient: No
[2019-06-14] MEDS ORDERED: ACETAMINOPHEN 325 MG TABLET (FP) PO PRN (17:06)
[2019-06-14] MEDS ORDERED: LIDOCAINE HCL 1%, 10 MG/ML (50 mL VIAL) SQ ONE (17:20)
[2019-06-14] MEDS ORDERED: LIDOCAINE HCL 1%, 10 MG/ML (20ML VIAL) ONE (17:22)
--- NOTE | 2019-06-14 17:23 | PN ---
Progress Note (short form) - Note Progress Note: Pt seen and examined in ER. She is a 43 year old female patient with severe RA deformities of the left hand who fell earlier today, sustaining an injury to her left hand. PE Left hand has severe RA deformities, significant flexion deformities of the 2nd, 3rd, and 4th digit PIP joints. Nontender over those joints. + very tender over the left hand 5th MP joint with a palpable deformity. LUE including all fingers are grossly NVI + active flexion and extension of the left 5th finger, although limited due to pain and a mechanical block to motion X-rays Show a highly subluxed (as per radiology) vs dislocated left 5th MP joint Imp Dislocated left hand 5th finger MP joint. Rec Pt going into CT scan now, but I recommend attempted closed reduction under local anesthesia, after a metacarpal block. Then repeat x-ray to assess joint. Volar/ulnar gutter splint Elevation
[2019-06-14] MEDS: predniSONE 5 MG TABLET (UD) PO SCH (17:59)
--- NOTE | 2019-06-14 18:03 | PN ---
Progress Note (short form) - Note Progress Note: The ER staff attempted closed reduction under local anesthesia. Post reduction x -rays show that the joint is still dislocated vs subluxed. So I did a closed reduction under anesthesia. The joint definitely was reduced, then dislocated again. I reduced it again and splinted it in a reduced position but it is highly unstable. I explained this all to the patient. She understands, and very likely would chose non operative treatment. She understands that she may have permanent functional deficits, stiffness etc
[2019-06-14] MEDS: MORPHINE SULFATE 2 MG/ML VIAL IVPUSH PRN (18:33)
[2019-06-14] MEDS: SODIUM CHLORIDE 1,000 ML IV SCH (18:46)
[2019-06-14] MEDS: NAPROXEN 500 MG TABLET (FP) PO SCH (21:47)
[2019-06-15] MEDS: MORPHINE SULFATE 2 MG/ML VIAL IVPUSH PRN (01:13)
[2019-06-15] MEDS: SODIUM CHLORIDE 1,000 ML IV SCH (04:13)
[2019-06-15 07:55] LABS: BASO % 0.7 % (0-2.0); EOS % 1.6 % (0-4.5); HEMATOCRIT 27.3 % (32.4-45.2); LYMPH % 19.6 % (8-40); MCH 25.5 pg (25.7-33.7); MCHC 32.9 g/dl (32.0-36.0); MEAN CELL VOLUME 77.5 fl (80-96); MEAN PLT VOLUME 7.6 fl (7.5-11.1); MONO % 4.2 % (3.8-10.2); NEUT % 73.9 % (42.8-82.8); PLATELET COUNT 528 K/MM3 (134-434); RBC 3.52 M/mm3 (3.60-5.2); RDW 19.9 % (11.6-15.6); WHITE BLOOD COUNT 7.1 K/mm3 (4.0-10.0)
[2019-06-15 08:14] LABS: ALBUMIN 2.4 g/dl (3.4-5.0); BILIRUBIN,TOTAL 0.2 mg/dL (0.2-1); BLOOD UREA NITROGEN 6.6 mg/dL (7-18); CALCIUM 8.9 mg/dL (8.5-10.1); CREATININE 0.4 mg/dL (0.55-1.3); MAGNESIUM 1.4 mg/dL (1.8-2.4); POTASSIUM 3.4 mmol/L (3.5-5.1); TOT PROT 6.6 g/dl (6.4-8.2)
--- NOTE | 2019-06-15 09:17 | EKG ---
Test Reason : Blood Pressure : / mmHG Vent. Rate : 077 BPM Atrial Rate : 077 BPM P-R Int : 156 ms QRS Dur : 092 ms QT Int : 420 ms P-R-T Axes : 058 052 043 degrees QTc Int : 475 ms NORMAL SINUS RHYTHM NONSPECIFIC T WAVE ABNORMALITY PROLONGED QT ABNORMAL ECG WHEN COMPARED WITH ECG OF 27-NOV-2018 08:22, NO SIGNIFICANT CHANGE WAS FOUND Confirmed by BOSSMAN MARIE, ROXY ([id number]) on 06/15/2019 9:17:38 AM Referred By: Confirmed By:ROXY KEITA MD
[2019-06-15] MEDS ORDERED: POTASSIUM CHLORIDE TABS 20 MEQ TABLET.ER (FP) PO ONE (10:08)
[2019-06-15] MEDS ORDERED: oxyCODONE HCL 5 MG TABLET PO PRN (10:09)
[2019-06-15] MEDS: FOLIC ACID 1 MG TABLET (FP) PO SCH (10:24)
[2019-06-15] MEDS: PANTOPRAZOLE 40 MG TABLET (FP) PO SCH (10:24)
[2019-06-15] MEDS: predniSONE 5 MG TABLET (UD) PO SCH (10:24)
[2019-06-15] MEDS: ENOXAPARIN NA (PORCINE) 40 MG/0.4 ML DISP.SYRIN SQ SCH ×2 (10:24→10:33)
[2019-06-15] MEDS: NAPROXEN 500 MG TABLET (FP) PO SCH ×2 (10:25→21:23)
[2019-06-15] MEDS ORDERED: METHOTREXATE 2.5 MG TABLET PO SCH (10:30)
[2019-06-15] MEDS ORDERED: PT OWN MED DRAWER 7, Y5N ONE (11:54)
--- NOTE | 2019-06-15 12:51 | PN ---
Physical Exam: SUBJECTIVE: Patient seen and examined at bedside. No acute events. Pt feels generally well OBJECTIVE: Vital Signs Period Temp Pulse Resp BP Sys/Luna Pulse Ox Last 24 Hr 97.9 F-98.5 F 85-89 18-19 110-133/65-79 97-99 GEN: AAOx3, NAD HEENT: NCAT, EOMI Neck: no jvd Cardio: rrr, normal s1s2, no mrg Pulm: cta b/l Abd: soft, nontender, nondistended Ext: L arm with splint for 5th finger, R hip and knee TTP and on movement, sensation and circulation intact throughout Laboratory Results - last 24 hr 06/14/19 06/14/19 06/14/19 11:34 11:34 11:47 WBC 6.4 RBC 4.41 Hgb 11.2 Hct 34.0 D MCV 77.0 L MCH 25.4 L MCHC 33.0 RDW 19.4 H Plt Count 657 H MPV 7.8 Absolute Neuts (auto) 5.2 Neutrophils % 80.8 D Lymphocytes % 12.3 D Monocytes % 4.3 Eosinophils % 1.8 Basophils % 0.8 Nucleated RBC % 0 ESR PTT (Actin FS) Sodium 138 Potassium 3.5 Chloride 103 Carbon Dioxide 23 Anion Gap 11 BUN 12.4 Creatinine 0.7 Est GFR (CKD-EPI)AfAm 121.27 Est GFR (CKD-EPI)NonAf 104.64 Random Glucose 160 H Calcium 9.9 Magnesium Total Bilirubin 0.4 AST 19 ALT 13 Alkaline Phosphatase 87 C-Reactive Protein 8.6 H Total Protein 8.0 Albumin 2.9 L 06/14/19 06/15/19 06/15/19 11:47 06:46 06:46 WBC 7.1 RBC 3.52 L Hgb 9.0 L Hct 27.3 L D MCV 77.5 L MCH 25.5 L MCHC 32.9 RDW 19.9 H Plt Count 528 H MPV 7.6 Absolute Neuts (auto) 5.3 Neutrophils % 73.9 Lymphocytes % 19.6 D Monocytes % 4.2 Eosinophils % 1.6 Basophils % 0.7 Nucleated RBC % 0 ESR 94 H PTT (Actin FS) 28.7 Sodium Potassium Chloride Carbon Dioxide Anion Gap BUN Creatinine Est GFR (CKD-EPI)AfAm Est GFR (CKD-EPI)NonAf Random Glucose Calcium Magnesium Total Bilirubin AST ALT Alkaline Phosphatase C-Reactive Protein Total Protein Albumin 06/15/19 06:46 WBC RBC Hgb Hct MCV MCH MCHC RDW Plt Count MPV Absolute Neuts (auto) Neutrophils % Lymphocytes % Monocytes % Eosinophils % Basophils % Nucleated RBC % ESR PTT (Actin FS) Sodium 141 Potassium 3.4 L Chloride 107 Carbon Dioxide 26 Anion Gap 8 BUN 6.6 L Creatinine 0.4 L Est GFR (CKD-EPI)AfAm 145.79 Est GFR (CKD-EPI)NonAf 125.79 Random Glucose 133 H Calcium 8.9 Magnesium 1.4 L Total Bilirubin 0.2 AST 15 ALT 11 L Alkaline Phosphatase 70 C-Reactive Protein Total Protein 6.6 Albumin 2.4 L Active Medications Generic Name Dose Route Start Last Admin Trade Name Freq PRN Reason Stop Dose Admin Acetaminophen 650 mg 06/14/19 17:06 Tylenol - PO Q4H PRN PAIN Enoxaparin Sodium 40 mg 06/15/19 10:00 06/15/19 10:33 Lovenox - SQ Not Given DAILY [facility] Folic Acid 1 mg 06/15/19 10:00 06/15/19 10:24 Folic Acid - PO 1 mg DAILY NATALYA Administration Methotrexate 20 mg 06/15/19 10:30 06/15/19 11:59 Mexate - PO 20 mg Mo@1000 NATALYA Administration Naproxen 500 mg 06/14/19 22:00 06/15/19 10:25 Naprosyn - PO 500 mg BID NATALYA Administration Oxycodone HCl 5 mg 06/15/19 10:09 06/15/19 10:23 Roxicodone - PO 5 mg Q4H PRN Administration PAIN LEVEL 1-5 Pantoprazole Sodium 40 mg 06/15/19 10:00 06/15/19 10:24 Protonix - PO 40 mg DAILY NATALYA Administration Prednisone 15 mg 06/14/19 17:15 06/15/19 10:24 Deltasone - PO 15 mg DAILY NATALYA Administration Sulfasalazine 1,000 mg 06/15/19 10:00 06/15/19 11:58 Azulfidine En-Tabs - PO 1,000 mg BID NATALYA Administration ASSESSMENT/PLAN: Pt is a 43 y/o F with PMH RA who presents to ED with complaint of Fall and L hand, R knee, R hip pain. Pt has been found to have subluxation of the left 5th digit. #L hand 5th digit subluxation -reduced twice by Ortho and splinted in place -will need f/u as outpt -nonweight bearing -f/o Ortho #RA -has been seen recently by subsurface augmentee operator Dr. Pedroza -Methotrexate 20mg weekly -Sulfasalazine 1gram bid -PT -f/u out pt with Yovany Visit type - Emergency Visit Emergency Visit: No - New Patient This patient is new to me today: Yes Date on this admission: 06/15/19 - Critical Care Critical Care patient: No ATTENDING PHYSICIAN STATEMENT I saw and evaluated the patient. I reviewed the resident's note and discussed the case with the resident. I agree with the resident's findings and plan as documented. SUBJECTIVE: OBJECTIVE: ASSESSMENT AND PLAN:
--- NOTE | 2019-06-15 14:54 | PN ---
Teaching Attending Note Name of Resident: Winston Onofre ATTENDING PHYSICIAN STATEMENT I saw and evaluated the patient. I reviewed the resident's note and discussed the case with the resident. I agree with the resident's findings and plan as documented with exceptions below. SUBJECTIVE: Patient seen and examined, Joint symptoms improved. still with left wrist/right knee pain and limited activity. OBJECTIVE: Vital Signs Period Temp Pulse Resp BP Sys/Luna Pulse Ox Last 24 Hr 97.9 F-98.5 F 85-89 18- 110-133/65-79 97-99 Intake & Output 06/12/19 06/13/19 06/14/19 06/15/19 23:59 23:59 23:59 23:59 Intake Total 700 1000 Balance 700 1000 Weight 250 lb General: sitting in bed in no acute distress Neck: soft, supple HEENT: PERRLA, EOMI CVS:S1S2 regular Chest: limited by body habitus, no rales or wheezing Abdomen:soft, obese, NT Musculoskeletal: Marked limitation in ROM at bilateral shoulder, knee, wrists, fingers, hips/knees, abduction deformity of the fingers and toes, tenderness of right patellar region, minimal movement of right hip (reports worse since fall) UPPER EXTREMITIES: 2+ pulses, warm, well-perfused. No cyanosis. No clubbing. No peripheral edema, marked deformities as above, left wrist in volar splint, limited ROM. LOWER EXTREMITIES: 2+ pulses, warm, well-perfused. No calf tenderness. No peripheral edema, marked limitation and arthritic changes a kali. NEUROLOGICAL: AAOx3,facial symmetry, tongue midline, speech normal, marked limitation in ROM, power assessment difficult to assess Home Medications Medication Instructions Recorded Naproxen [Naprosyn -] 500 mg PO BID #30 tablet 04/06/19 Ferrous Sulfate [Iron] 325 mg PO DAILY 06/14/19 predniSONE [Deltasone -] 15 mg PO DAILY 06/14/19 Active Medications Acetaminophen (Tylenol -) 650 mg PO Q4H PRN PRN Reason: PAIN Enoxaparin Sodium (Lovenox -) 40 mg SQ DAILY ON LICENSE OF [facility] Last Admin: 06/15/19 10:33 Dose: Not Given Folic Acid (Folic Acid -) 1 mg PO DAILY ON LICENSE OF [facility] Last Admin: 06/15/19 10:24 Dose: 1 mg Methotrexate (Mexate -) 20 mg PO Mo@1000 ON LICENSE OF [facility] Last Admin: 06/15/19 11:59 Dose: 20 mg Naproxen (Naprosyn -) 500 mg PO BID ON LICENSE OF [facility] Last Admin: 06/15/19 10:25 Dose: 500 mg Oxycodone HCl (Roxicodone -) 5 mg PO Q4H PRN PRN Reason: PAIN LEVEL 1-5 Last Admin: 06/15/19 10:23 Dose: 5 mg Pantoprazole Sodium (Protonix -) 40 mg PO DAILY ON LICENSE OF [facility] Last Admin: 06/15/19 10:24 Dose: 40 mg Prednisone (Deltasone -) 15 mg PO DAILY ON LICENSE OF [facility] Last Admin: 06/15/19 10:24 Dose: 15 mg Sulfasalazine (Azulfidine En-Tabs -) 1,000 mg PO BID ON LICENSE OF [facility] Last Admin: 06/15/19 11:58 Dose: 1,000 mg Laboratory Results - last 24 hr 06/14/19 06/15/19 06/15/19 11:47 06:46 06:46 WBC 7.1 RBC 3.52 L Hgb 9.0 L Hct 27.3 L D MCV 77.5 L MCH 25.5 L MCHC 32.9 RDW 19.9 H Plt Count 528 H MPV 7.6 Absolute Neuts (auto) 5.3 Neutrophils % 73.9 Lymphocytes % 19.6 D Monocytes % 4.2 Eosinophils % 1.6 Basophils % 0.7 Nucleated RBC % 0 ESR 94 H PTT (Actin FS) 28.7 Sodium Potassium Chloride Carbon Dioxide Anion Gap BUN Creatinine Est GFR (CKD-EPI)AfAm Est GFR (CKD-EPI)NonAf Random Glucose Calcium Magnesium Total Bilirubin AST ALT Alkaline Phosphatase Total Protein Albumin 06/15/19 06:46 WBC RBC Hgb Hct MCV MCH MCHC RDW Plt Count MPV Absolute Neuts (auto) Neutrophils % Lymphocytes % Monocytes % Eosinophils % Basophils % Nucleated RBC % ESR PTT (Actin FS) Sodium 141 Potassium 3.4 L Chloride 107 Carbon Dioxide 26 Anion Gap 8 BUN 6.6 L Creatinine 0.4 L Est GFR (CKD-EPI)AfAm 145.79 Est GFR (CKD-EPI)NonAf 125.79 Random Glucose 133 H Calcium 8.9 Magnesium 1.4 L Total Bilirubin 0.2 AST 15 ALT 11 L Alkaline Phosphatase 70 Total Protein 6.[address] Pelvis/LE and left hand xray reviewed ASSESSMENT AND PLAN: 43 yof with PMx of advanced Rheumatoid arthritis, reportedly on methrotrexate/ prednisone/naprosyn, discharged from [facility] rehab 2-3 weeks ago, off meds, comes with fall, suspected acute left 5th digit subluxation, right patellar displacement -Mechanical fall -Acute vs chronic left 5th digit subluxation -Right lateral patellar subluxation -r/o right hip fracture -Advance Rheumatoid arthritis Plan: Prior records reviewed Will resume methotrexate 20 mg weekly, sulfasalazine 1 g BID. Continue naproxen, prednisone. PPI. Follow up rheumatology input. ESR/CRP Orthoepdic input noted, CT pevlis/LE results reviewed Left hand volar splint. Follow up ortho/PT recs. Anticipate SNF. DVTPPX lovenox PT eval Anticipate will need PT eval pending above work up and clinical improvement. Discussed with patient and nursing, all questions answered.
[2019-06-15] MEDS ORDERED: ACETAMINOPHEN 325 MG TABLET (FP) PO PRN (14:56)
[2019-06-15] MEDS ORDERED: POLYETHYLENE GLYCOL 3350 119 GM BTL PO PRN (14:56)
--- NOTE | 2019-06-15 16:42 | PN ---
Progress Note (short form) - Note Progress Note: Pt seen, doing better today, more comfortable. She has no complaints of pain in the right knee. Left hand in a volar ulnar gutter splint. No severe swelling, NVI, overall doing fine, stable. Will follow. She can be discharged from an orthopedic pov, and f/u in 10-14 days as an out pt for repeat evaluation of the left hand.
[2019-06-15] MEDS ORDERED: MAGNESIUM SULF 50% (8.12 MEQ/2 ML-1 GM VIAL) IVPB ONE (18:22)
[2019-06-15] MEDS: FERROUS SO4 325 MG TABLET (FP) PO SCH (18:39)
[2019-06-15] MEDS: DOCUSATE SODIUM 100 MG CAPSULE (FP) PO SCH ×2 (18:40→21:28)
[2019-06-15] MEDS: SENNOSIDES 8.6MG TABLET (FP) PO SCH (21:24)
[2019-06-15] MEDS: oxyCODONE HCL 5 MG TABLET PO PRN (22:44)
[2019-06-16] MEDS: DOCUSATE SODIUM 100 MG CAPSULE (FP) PO SCH ×3 (05:54→21:48)
[2019-06-16 06:27] LABS: HEMATOCRIT 26.4 % (32.4-45.2); HEMOGLOBIN 8.6 GM/dL (10.7-15.3); MCH 25.3 pg (25.7-33.7); MCHC 32.5 g/dl (32.0-36.0); MEAN CELL VOLUME 77.8 fl (80-96); MEAN PLT VOLUME 7.6 fl (7.5-11.1); PLATELET COUNT 496 K/MM3 (134-434); RBC 3.39 M/mm3 (3.60-5.2); RDW 19.8 % (11.6-15.6); WHITE BLOOD COUNT 5.9 K/mm3 (4.0-10.0)
[2019-06-16 06:59] LABS: ALBUMIN 2.3 g/dl (3.4-5.0); BILIRUBIN,TOTAL 0.2 mg/dL (0.2-1); BLOOD UREA NITROGEN 6.3 mg/dL (7-18); CALCIUM 8.2 mg/dL (8.5-10.1); CREATININE 0.4 mg/dL (0.55-1.3); MAGNESIUM 1.8 mg/dL (1.8-2.4); PHOSPHOROUS 2.6 mg/dL (2.5-4.9); POTASSIUM 3.5 mmol/L (3.5-5.1); TOT PROT 6.1 g/dl (6.4-8.2)
[2019-06-16] MEDS ORDERED: PT OWN MED DRAWER 7, Y5N ONE (09:42)
[2019-06-16] MEDS: FOLIC ACID 1 MG TABLET (FP) PO SCH (09:45)
[2019-06-16] MEDS: predniSONE 5 MG TABLET (UD) PO SCH (09:45)
[2019-06-16] MEDS: FERROUS SO4 325 MG TABLET (FP) PO SCH (09:45)
[2019-06-16] MEDS: ENOXAPARIN NA (PORCINE) 40 MG/0.4 ML DISP.SYRIN SQ SCH (09:46)
[2019-06-16] MEDS: NAPROXEN 500 MG TABLET (FP) PO SCH ×2 (09:46→21:48)
[2019-06-16] MEDS: PANTOPRAZOLE 40 MG TABLET (FP) PO SCH (09:48)
[2019-06-16] MEDS: oxyCODONE HCL 5 MG TABLET PO PRN ×2 (11:30→23:46)
--- NOTE | 2019-06-16 12:41 | PN ---
Progress Note (short form) - Note Progress Note: Ortho Pt seen and examined s/p right left 5th MP joint reduction Selected Entries 06/16/19 06:00 Temperature 98.7 F Pulse Rate 72 Respiratory 18 Rate Blood Pressure 106/58 L splint intact, nvi a/p maintain splint f/u as outpt in 10-14 days d/w Dr. Vanessa
--- NOTE | 2019-06-16 14:03 | PN ---
Physical Exam: SUBJECTIVE: Patient seen and examined, pain improved, no new concerns. OBJECTIVE: Vital Signs Period Temp Pulse Resp BP Sys/Luna Pulse Ox Last 24 Hr 97.8 F-98.7 F 69-77 17-20 106-138/58-79 98-98 Intake & Output 06/13/19 06/14/19 06/15/19 06/16/19 23:59 23:59 23:59 23:59 Intake Total 700 1200 500 Output Total 1200 Balance 700 1200 -700 Weight 250 lb General: sitting in bed in no acute distress Neck: soft, supple HEENT: PERRLA, EOMI CVS:S1S2 regular Chest: limited by body habitus, no rales or wheezing Abdomen:soft, obese, NT Musculoskeletal: Marked limitation in ROM at bilateral shoulder, knee, wrists, fingers, hips/knees, abduction deformity of the fingers and toes, improved tenderness of right patellar region, minimal movement of right hip (reports worse since fall) UPPER EXTREMITIES: 2+ pulses, warm, well-perfused. No cyanosis. No clubbing. No peripheral edema, marked deformities as above, left wrist in volar splint, limited ROM. LOWER EXTREMITIES: 2+ pulses, warm, well-perfused. No calf tenderness. No peripheral edema, marked limitation and arthritic changes a kali. NEUROLOGICAL: AAOx3,facial symmetry, tongue midline, speech normal, marked limitation in ROM, power assessment difficult to assess Laboratory Results - last 24 hr 06/16/19 06/16/19 05:30 05:30 WBC 5.9 RBC 3.39 L Hgb 8.6 L Hct 26.4 L MCV 77.8 L MCH 25.3 L MCHC 32.5 RDW 19.8 H Plt Count 496 H MPV 7.6 Sodium 143 Potassium 3.5 Chloride 110 H Carbon Dioxide 27 Anion Gap 6 L BUN 6.3 L Creatinine 0.4 L Est GFR (CKD-EPI)AfAm 145.79 Est GFR (CKD-EPI)NonAf 125.79 Random Glucose 126 H Calcium 8.2 L Phosphorus 2.6 Magnesium 1.8 Total Bilirubin 0.2 AST 11 L ALT 9 L Alkaline Phosphatase 67 Total Protein 6.1 L Albumin 2.3 L Active Medications Generic Name Dose Route Start Last Admin Trade Name Freq PRN Reason Stop Dose Admin Acetaminophen 650 mg 06/15/19 14:56 06/16/19 06:16 Tylenol - PO 650 mg Q4H PRN Administration PAIN LEVEL 1-5 Docusate Sodium 100 mg 06/15/19 15:00 06/16/19 05:54 Colace - PO Not Given TID [facility] Enoxaparin Sodium 40 mg 06/15/19 10:00 06/16/19 09:46 Lovenox - SQ 40 mg DAILY NATALYA Administration Ferrous Sulfate 325 mg 06/15/19 15:00 06/16/19 09:45 Feosol - PO 325 mg DAILY NATALYA Administration Folic Acid 1 mg 06/15/19 10:00 06/16/19 09:45 Folic Acid - PO 1 mg DAILY NATALYA Administration Methotrexate 20 mg 06/15/19 10:30 06/15/19 11:59 Mexate - PO 20 mg Mo@1000 [facility] Administration Naproxen 500 mg 06/14/19 22:00 06/16/19 09:46 Naprosyn - PO 500 mg BID NATALYA Administration Oxycodone HCl 5 mg 06/15/19 14:56 06/16/19 11:30 Roxicodone - PO 5 mg Q6H PRN Administration PAIN LEVEL 6-10 Pantoprazole Sodium 40 mg 06/15/19 10:00 06/16/19 09:48 Protonix - PO 40 mg DAILY NATALYA Administration Polyethylene Glycol 17 gm 06/15/19 14:56 Miralax (For Daily Use) - PO DAILY PRN CONSTIPATION Prednisone 15 mg 06/14/19 17:15 06/16/19 09:45 Deltasone - PO 15 mg DAILY NATALYA Administration Senna 2 tab 06/15/19 22:00 06/15/19 21:24 Senna - PO 2 tab HS NATALYA Administration Sulfasalazine 1,000 mg 06/15/19 10:00 06/16/19 09:47 Azulfidine En-Tabs - PO 1,000 mg BID NATALYA Administration ASSESSMENT/PLAN: 43 yof with PMHx of advanced Rheumatoid arthritis, reportedly on methrotrexate/ prednisone/naprosyn, discharged from [facility] rehab 2-3 weeks ago, off meds, comes with fall, suspected acute left 5th digit subluxation, right patellar displacement -Mechanical fall -Acute vs chronic left 5th digit subluxation -Right lateral patellar subluxation -r/o right hip fracture -Advance Rheumatoid arthritis Plan: Orthopedic input noted. Left volar splint, outpatient follow up. Methotrexate/Sulfasalazine resumed. Continue naproxen, prednisone. PPI. Rheumatology follow up for prednisone taper. ESR/CRP noted. Anticipate SNF. DVTPPX lovenox PT eval dispo anticipate SNF when disposition arranged with outpatient orthopedic and rheumatology follow up Discussed with patient and nursing, all questions answered. Visit type - Emergency Visit Emergency Visit: Yes ED Registration Date: 06/14/19 Care time: The patient presented to the Emergency Department on the above date and was hospitalized for further evaluation of their emergent condition. - New Patient This patient is new to me today: No - Critical Care Critical Care patient: No - Discharge Referral Referred to [facility] Med P.C.: No
--- NOTE | 2019-06-16 16:39 | PN ---
Physical Exam: SUBJECTIVE: Patient seen and examined at bedside. No acute events. Pt feels generally well. No complaints OBJECTIVE: Vital Signs Period Temp Pulse Resp BP Sys/Luna Pulse Ox Last 24 Hr 97.8 F-98.7 F 69-84 17-20 106-121/58-76 98-98 GEN: AAOx3, NAD HEENT: NCAT, EOMI Neck: no jvd Cardio: rrr, normal s1s2, no mrg Pulm: cta b/l Abd: soft, nontender, nondistended Ext: L arm with splint for 5th finger, R hip and knee TTP and on movement, sensation and circulation intact throughout Laboratory Results - last 24 hr 06/16/19 06/16/19 05:30 05:30 WBC 5.9 RBC 3.39 L Hgb 8.6 L Hct 26.4 L MCV 77.8 L MCH 25.3 L MCHC 32.5 RDW 19.8 H Plt Count 496 H MPV 7.6 Sodium 143 Potassium 3.5 Chloride 110 H Carbon Dioxide 27 Anion Gap 6 L BUN 6.3 L Creatinine 0.4 L Est GFR (CKD-EPI)AfAm 145.79 Est GFR (CKD-EPI)NonAf 125.79 Random Glucose 126 H Calcium 8.2 L Phosphorus 2.6 Magnesium 1.8 Total Bilirubin 0.2 AST 11 L ALT 9 L Alkaline Phosphatase 67 Total Protein 6.1 L Albumin 2.3 L Active Medications Generic Name Dose Route Start Last Admin Trade Name Freq PRN Reason Stop Dose Admin Acetaminophen 650 mg 06/15/19 14:56 06/16/19 06:16 Tylenol - PO 650 mg Q4H PRN Administration PAIN LEVEL 1-5 Docusate Sodium 100 mg 06/15/19 15:00 06/16/19 15:01 Colace - PO Not Given TID NATALYA Enoxaparin Sodium 40 mg 06/15/19 10:00 06/16/19 09:46 Lovenox - SQ 40 mg DAILY NATALYA Administration Ferrous Sulfate 325 mg 06/15/19 15:00 06/16/19 09:45 Feosol - PO 325 mg DAILY NATALYA Administration Folic Acid 1 mg 06/15/19 10:00 06/16/19 09:45 Folic Acid - PO 1 mg DAILY NATALYA Administration Methotrexate 20 mg 06/15/19 10:30 06/15/19 11:59 Mexate - PO 20 mg Mo@1000 NATALYA Administration Naproxen 500 mg 06/14/19 22:00 06/16/19 09:46 Naprosyn - PO 500 mg BID NATALYA Administration Oxycodone HCl 5 mg 06/15/19 14:56 06/16/19 11:30 Roxicodone - PO 5 mg Q6H PRN Administration PAIN LEVEL 6-10 Pantoprazole Sodium 40 mg 06/15/19 10:00 06/16/19 09:48 Protonix - PO 40 mg DAILY NATALYA Administration Polyethylene Glycol 17 gm 06/15/19 14:56 Miralax (For Daily Use) - PO DAILY PRN CONSTIPATION Prednisone 15 mg 06/14/19 17:15 06/16/19 09:45 Deltasone - PO 15 mg DAILY NATALYA Administration Senna 2 tab 06/15/19 22:00 06/15/19 21:24 Senna - PO 2 tab HS NATALYA Administration Sulfasalazine 1,000 mg 06/15/19 10:00 06/16/19 09:47 Azulfidine En-Tabs - PO 1,000 mg BID NATALYA Administration ASSESSMENT/PLAN: Pt is a 43 y/o F with PMH RA who presents to ED with complaint of Fall and L hand, R knee, R hip pain. Pt has been found to have subluxation of the left 5th digit. #L hand 5th digit subluxation -reduced twice by Ortho and splinted in place -will need f/u as outpt -nonweight bearing -f/o Ortho #RA -has been seen recently by architectural technician Dr. Pedroza -Methotrexate 20mg weekly -Sulfasalazine 1gram bid -PT -f/u out pt with Yovany Visit type - Emergency Visit Emergency Visit: No - New Patient This patient is new to me today: No - Critical Care Critical Care patient: No ATTENDING PHYSICIAN STATEMENT I saw and evaluated the patient. I reviewed the resident's note and discussed the case with the resident. I agree with the resident's findings and plan as documented. SUBJECTIVE: OBJECTIVE: ASSESSMENT AND PLAN:
[2019-06-16] MEDS: SENNOSIDES 8.6MG TABLET (FP) PO SCH (21:48)
[2019-06-17] MEDS: DOCUSATE SODIUM 100 MG CAPSULE (FP) PO SCH ×3 (06:04→21:04)
--- NOTE | 2019-06-17 08:23 | PN ---
Teaching Attending Note Name of Resident: Winston Onofre ATTENDING PHYSICIAN STATEMENT I saw and evaluated the patient. I reviewed the resident's note and discussed the case with the resident. I agree with the resident's findings and plan as documented. Seen and examined; symptoms continue to remain improved without worsening swelling, etc. Cleared for DC by ortho; discussing length of steroid taper with Dr. Pedroza and occasion for followup. Continues on MTX/Sulfa/Prednisone with PPI for ppx given concurring BID Naproxen. VS, labs, imaging reviewed NAD, AAO, resting in bed NC AT EOMI PERRLA RRR s1/2 Lungs CTAB, w/ sym exp NT ND +bs Remains in volar splint L-hand; remains neurovasc intact CN2-12 wnl, no fnd. Stereotyped RA findings Normal mood, appropriate behavior Reviewed all relevent labs and imaging ASSESSMENT AND PLAN: In summation, a 43 y/o female with severe RA presenting with a L-hand fx that is s/p splinting by Orthopedic Sgy; she is on steroid taper and DMARDs for her advanced AI condition and has appreciated some improvement. She was recently at rehab for related issues and has some impaired functional status resulting from her disease. Problems include: -L-hand 5th digit subluxation (Followup with orthopedics per instructions; L- hand to volar gutter splint. Improved and remains neurovasc intact) -R-Patellar sublux (stable; PRN management and followup with ortho) -R-Hip Pain-improved, no fracture. -Seropositive RA with polyarticular involvement (on 20mg MTX QMonday, 1 BID Sulfa, BID Naproxen, 15 pred with plans to taper. She has seen Dr. Pedroza in the past. Calling his service to discuss ongoing taper and to arrange for followup. Continue PPI for gi px.) -Chronic Anemia (continue iron) -Reactive thrombocytosis (Likely 2/2 RA flare; trending down. 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
[2019-06-17] MEDS ORDERED: PT OWN MED DRAWER 7, Y5N ONE ×2 (08:54→21:02)
[2019-06-17] MEDS: ENOXAPARIN NA (PORCINE) 40 MG/0.4 ML DISP.SYRIN SQ SCH ×2 (09:12→09:25)
[2019-06-17] MEDS: FERROUS SO4 325 MG TABLET (FP) PO SCH (09:13)
[2019-06-17] MEDS: predniSONE 5 MG TABLET (UD) PO SCH (09:13)
[2019-06-17] MEDS: PANTOPRAZOLE 40 MG TABLET (FP) PO SCH (09:13)
[2019-06-17] MEDS: FOLIC ACID 1 MG TABLET (FP) PO SCH (09:13)
[2019-06-17] MEDS: oxyCODONE HCL 5 MG TABLET PO PRN ×2 (10:00→22:35)
[2019-06-17 10:03] LABS: HEMATOCRIT 27.7 % (32.4-45.2); HEMOGLOBIN 8.9 GM/dL (10.7-15.3); MCH 25.2 pg (25.7-33.7); MEAN CELL VOLUME 78.7 fl (80-96); MEAN PLT VOLUME 7.4 fl (7.5-11.1); PLATELET COUNT 502 K/MM3 (134-434); RBC 3.52 M/mm3 (3.60-5.2); RDW 19.8 % (11.6-15.6); WHITE BLOOD COUNT 5.5 K/mm3 (4.0-10.0)
[2019-06-17] MEDS: NAPROXEN 500 MG TABLET (FP) PO SCH ×2 (11:25→21:04)
[2019-06-17] MEDS: GLYCERIN 1 RECTAL SUPPOSITORY, ADULT RC ONE (11:25)
--- NOTE | 2019-06-17 16:07 | CONSULT ---
Consult Consult Specialty:: Rheumatology - History of Present Illness History of Present Illness: 43 year old female with sero-positive rheumatoid arthritis not treated adequately for many years and significant damage in multiple joints. She was discharged from [facility] rehab 2-3 weeks ago, admitted after she had a fall due to buckling of her right knee and supported with her right hand. She has not have rheumatology follow-up as outpatient. On admission the patient was found to have a dislocated left 5th MCP. The ER staff was unsuccessful in attempted closed reduction under local anesthesia and did a closed reduction under anesthesia, however it dislocated again. It was reduced again and splinted it in a reduced position. Rheumatoid arthritis. History of intolerance to Leflunomide. On Sulfasalazine 1 gr BID and Methotrexate 20 mg/week (since 07/11/18, started in previous [place] admission). On the 11/28/18 admission she had on the musculoskeletal examination,14 swollen and 4 tender joints. She reports that prior to the admission she was walking and shopping. She had pain mainly in knees and ankles, she denies pain in hands and she has 1 hour morning stiffness. Laboratory work-up revealed CVC with WBC of 5.5, Hgb 8.9 and platelets 502. ESR 94. Creatinine 0.4, LFT normal and Albumin 2.3. X ray of the right wrist revealed collapse of carpus with narrowing of radio- carpal and intracarlpa joints and erosions. Subluxation of 5th MCP. Eriosions in 1st and 3rd MCPs. PIPs could not be evaluated,. - Past Medical History ...LMP: 06/28/18 ...: No - Alcohol/Substance Use Hx Alcohol Use: No - Smoking History Smoking history: Former smoker Have you smoked in the past 12 months: No Aproximately how many cigarettes per day: 4 Home Medications - Allergies Allergies/Adverse Reactions: Allergies Allergy/AdvReac Type Severity Reaction Status Date / Time No Known Allergies Allergy Verified 04/06/19 15:54 - Home Medications Home Medications: Ambulatory Orders Naproxen [Naprosyn -] 500 mg PO BID #30 tablet 04/06/19 Ferrous Sulfate [Iron] 325 mg PO DAILY 06/14/19 predniSONE [Deltasone -] 15 mg PO DAILY 06/14/19 Review of Systems - Review of Systems Constitutional: reports: Malaise Eyes: reports: No Symptoms HENT: reports: No Symptoms Neck: reports: No Symptoms Cardiovascular: reports: No Symptoms Respiratory: reports: No Symptoms Gastrointestinal: reports: No Symptoms Musculoskeletal: reports: Other (See HPI) Integumentary: reports: No Symptoms Physical Exam Vital Signs: Vital Signs Temperature 98.8 F 06/17/19 13:32 Pulse Rate 73 06/17/19 13:32 Respiratory Rate 20 06/17/19 13:32 Blood Pressure 128/72 06/17/19 13:32 O2 Sat by Pulse Oximetry (%) 98 06/17/19 09:00 Constitutional: Yes: Moderate Distress Eyes: Yes: WNL HENT: Yes: WNL Neck: Yes: WNL Cardiovascular: Yes: WNL Respiratory: Yes: WNL Gastrointestinal: Yes: WNL Musculoskeletal: Yes: Other (Swelling of the right wrist and right 5th PIP. Flexion contracture of PIPs. Tendency to keep hands closed. Mild tenderness in knees and ankles and no other active joints.) Labs: CBC, BMP 06/17/19 09:22 06/16/19 05:30 Laboratory Tests 06/14/19 06/16/19 11:47 05:30 ESR 94 H Random Glucose 126 H Calcium 8.2 L Phosphorus 2.6 Magnesium 1.8 Total Bilirubin 0.2 AST 11 L ALT 9 L Alkaline Phosphatase 67 Total Protein 6.1 L Albumin 2.3 L Problem List - Problems (1) Rheumatoid arthritis Assessment/Plan: Sero-posiive, erosive rheumatoid arthritis. PArtial improvement with Sulfasalazine and Methotrexate, however the patient requires biological DMARD to be prescribed as outpatient by her supply assistant. Plan: continue with same medications. Code(s): M06.9 - RHEUMATOID ARTHRITIS, UNSPECIFIED
[2019-06-17] MEDS: SENNOSIDES 8.6MG TABLET (FP) PO SCH (21:04)
--- NOTE | 2019-06-17 21:35 | PN ---
Physical Exam: SUBJECTIVE: Patient seen and examined at bedside. No acute events. Pt feels generally well. No complaints. Waiting for placement OBJECTIVE: Vital Signs Period Temp Pulse Resp BP Sys/Luna Pulse Ox Last 24 Hr 97.9 F-98.8 F 61-77 18-20 111-138/55-75 98 GEN: AAOx3, NAD HEENT: NCAT, EOMI Neck: no jvd Cardio: rrr, normal s1s2, no mrg Pulm: cta b/l Abd: soft, nontender, nondistended Ext: L arm with splint for 5th finger, R hip and knee TTP and on movement, sensation and circulation intact throughout Laboratory Results - last 24 hr 06/17/19 09:22 WBC 5.5 RBC 3.52 L Hgb 8.9 L Hct 27.7 L MCV 78.7 L MCH 25.2 L MCHC 32.0 RDW 19.8 H Plt Count 502 H MPV 7.4 L Active Medications Generic Name Dose Route Start Last Admin Trade Name Freq PRN Reason Stop Dose Admin Acetaminophen 650 mg 06/15/19 14:56 06/16/19 06:16 Tylenol - PO 650 mg Q4H PRN Administration PAIN LEVEL 1-5 Docusate Sodium 100 mg 06/15/19 15:00 06/17/19 21:04 Colace - PO 100 mg TID NATALYA Administration Enoxaparin Sodium 40 mg 06/15/19 10:00 06/17/19 09:25 Lovenox - SQ 40 mg DAILY NATALYA Administration Ferrous Sulfate 325 mg 06/15/19 15:00 06/17/19 09:13 Feosol - PO 325 mg DAILY NATALYA Administration Folic Acid 1 mg 06/15/19 10:00 06/17/19 09:13 Folic Acid - PO 1 mg DAILY NATALYA Administration Methotrexate 20 mg 06/15/19 10:30 06/15/19 11:59 Mexate - PO 20 mg Mo@1000 NATALYA Administration Naproxen 500 mg 06/14/19 22:00 06/17/19 21:04 Naprosyn - PO 500 mg BID NATALYA Administration Oxycodone HCl 5 mg 06/15/19 14:56 06/17/19 10:00 Roxicodone - PO 5 mg Q6H PRN Administration PAIN LEVEL 6-10 Pantoprazole Sodium 40 mg 06/15/19 10:00 06/17/19 09:13 Protonix - PO 40 mg DAILY NATALYA Administration Polyethylene Glycol 17 gm 06/15/19 14:56 Miralax (For Daily Use) - PO DAILY PRN CONSTIPATION Prednisone 15 mg 06/14/19 17:15 06/17/19 09:13 Deltasone - PO 15 mg DAILY NATALYA Administration Senna 2 tab 06/15/19 22:00 06/17/19 21:04 Senna - PO 2 tab HS NATALYA Administration Sulfasalazine 1,000 mg 06/15/19 10:00 06/17/19 21:04 Azulfidine En-Tabs - PO 1,000 mg BID NATALYA Administration ASSESSMENT/PLAN: Pt is a 43 y/o F with PMH RA who presents to ED with complaint of Fall and L hand, R knee, R hip pain. Pt has been found to have subluxation of the left 5th digit. 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 Pedroza -Methotrexate 20mg weekly -Sulfasalazine 1gram bid -PT -f/u out pt with Yovany (seen today) Visit type - Emergency Visit Emergency Visit: No - New Patient This patient is new to me today: No - Critical Care Critical Care patient: No ATTENDING PHYSICIAN STATEMENT I saw and evaluated the patient. I reviewed the resident's note and discussed the case with the resident. I agree with the resident's findings and plan as documented. SUBJECTIVE: OBJECTIVE: ASSESSMENT AND PLAN:
[2019-06-18] MEDS: MENTHOL/CAMPHOR 1 APPLIC BTL TP ONE ×2 (03:30→04:00)
[2019-06-18] MEDS: DOCUSATE SODIUM 100 MG CAPSULE (FP) PO SCH ×2 (06:22→14:22)
[2019-06-18] MEDS: GLYCERIN 1 RECTAL SUPPOSITORY, ADULT RC ONE (06:23)
[2019-06-18 09:46] LABS: HEMATOCRIT 28.3 % (32.4-45.2); HEMOGLOBIN 9.2 GM/dL (10.7-15.3); MCH 25.3 pg (25.7-33.7); MCHC 32.4 g/dl (32.0-36.0); MEAN CELL VOLUME 78.2 fl (80-96); MEAN PLT VOLUME 7.7 fl (7.5-11.1); PLATELET COUNT 510 K/MM3 (134-434); RBC 3.63 M/mm3 (3.60-5.2); RDW 20.3 % (11.6-15.6); WHITE BLOOD COUNT 5.9 K/mm3 (4.0-10.0)
[2019-06-18] MEDS ORDERED: PT OWN MED DRAWER 7, Y5N ONE (10:55)
[2019-06-18] MEDS: PANTOPRAZOLE 40 MG TABLET (FP) PO SCH (10:59)
[2019-06-18] MEDS: predniSONE 5 MG TABLET (UD) PO SCH (10:59)
[2019-06-18] MEDS: FERROUS SO4 325 MG TABLET (FP) PO SCH (11:00)
[2019-06-18] MEDS: FOLIC ACID 1 MG TABLET (FP) PO SCH (11:00)
[2019-06-18] MEDS: ENOXAPARIN NA (PORCINE) 40 MG/0.4 ML DISP.SYRIN SQ SCH (11:00)
[2019-06-18] MEDS: NAPROXEN 500 MG TABLET (FP) PO SCH (11:01)
--- NOTE | 2019-06-18 11:16 | PN ---
Teaching Attending Note Name of Resident: Winston Onofre ATTENDING PHYSICIAN STATEMENT I saw and evaluated the patient. I reviewed the resident's note and discussed the case with the resident. I agree with the resident's findings and plan as documented. Seen and examined; please see resident note for further historical information. She is doing well today with no new complaints; she was seen by rheumatology. Continuing current meds, assess for biologic agent as OP with her rheum. Pending rehab. VS, labs, imaging reviewed. NAD, AAO, resting in bed RRR s1/2 Splinted; neurovasc. intact. ROM unchanged. Lungs CTAB, s1/2 Normal mood, appropriate behavior. Good spirits. 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 She was recently at rehab for related issues and has some impaired functional status resulting from her disease. Problems include: -L-hand 5th digit subluxation (Followup with orthopedics per instructions; L- hand to volar gutter splint. Improved and remains neurovasc intact. Rehab pending) -R-Patellar sublux (stable; PRN management and followup with ortho. Films reviewed and negative; rehab pending) -R-Hip Pain-improved, no fracture. -Seropositive RA with polyarticular involvement (on 20mg MTX QMonday, 1 BID Sulfa, BID Naproxen, 15 pred with plans to taper. She has seen Dr. Pedroza in the past. Calling his service to discuss ongoing taper and to arrange for followup. Continue PPI for gi px.) -Chronic Anemia (continue iron) -Reactive thrombocytosis (Likely 2/2 RA flare; trending down. 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
[2019-06-18] MEDS ORDERED: oxyCODONE HCL 5 MG TABLET PO ONE (17:42)
[2019-06-18 17:58] VITALS: BP 131/77; PULSE 83; TEMP 98.9
--- NOTE | 2019-06-18 21:21 | DS ---
Physical Exam: SUBJECTIVE: Patient seen and examined OBJECTIVE: Vital Signs Period Temp Pulse Resp BP Sys/Luna Pulse Ox Last 24 Hr 98 F-98.9 F 67-83 18-18 120-141/70-83 100 PHYSICAL EXAM GENERAL: The patient is awake, alert, and fully oriented, in no acute distress. HEAD: Normal with no signs of trauma. EYES: PERRL, extraocular movements intact, sclera anicteric, conjunctiva clear. ENT: Ears normal, nares patent, oropharynx clear without exudates, moist mucous membranes. NECK: Trachea midline, full range of motion, supple. LUNGS: Breath sounds equal, clear to auscultation bilaterally, no wheezes, no crackles, no accessory muscle use. HEART: Regular rate and rhythm, S1, S2 without murmur, rub or gallop. ABDOMEN: Soft, nontender, nondistended, normoactive bowel sounds, no guarding, no rebound, no hepatosplenomegaly, no masses. EXTREMITIES: 2+ pulses, warm, well-perfused, no edema. NEUROLOGICAL: Cranial nerves II through XII grossly intact. Normal speech, gait not observed. PSYCH: Normal mood, normal affect. SKIN: Warm, dry, normal turgor, no rashes or lesions noted. LABS Laboratory Results - last 24 hr 06/18/19 06/18/19 06:54 07:14 WBC 5.9 RBC 3.63 Hgb 9.2 L Hct 28.3 L MCV 78.2 L MCH 25.3 L MCHC 32.4 RDW 20.3 H Plt Count 510 H MPV 7.7 POC Glucometer 168 HOSPITAL COURSE: Date of Admission:06/14/19 Date of Discharge: 06/18/19 Discharge Summary Reason For Visit: rheumatoid arthritis Current Active Problems Rheumatoid arthritis (Acute) Subluxation of left little finger (Acute) Condition: Good - Instructions Diet, Activity, Other Instructions: You were in the hospital because of a fall. You need to follow up with the following doctors: Primary Care within 3-[address] Vnaessa, Orthopedics Dr. Pedroza (or your own out pt inker machine), Rheumatology Dr. Coon, Podiatry You are being sent with the following medications: Tylenol 325 by mouth every 6 hours Pantoprazole 40 mg by mouth daily Daily vit D/Calcium supplement Please continue your other medications as before. You will need a DEXA scan. Ask your primary care doctor about having this done. Referrals: Eddie Pedroza MD [Staff Physician] - Kamari Vanessa MD [Staff Physician] - Kenyatta Coon DPM [Staff Physician] - Disposition: ALF FACILITY - Home Medications Comprehensive Discharge Medication List: Ambulatory Orders Ferrous Sulfate [Iron] 325 mg PO DAILY 06/14/19 predniSONE [Deltasone -] 15 mg PO DAILY 06/14/19 Acetaminophen [Tylenol .Regular Strength -] 650 mg PO Q4H PRN tablet 06/18/19 Calcium Carb, Citrate/Vit D3 [Calcium + D3 ER Tablet] 1 each PO DAILY #30 tablet.er 06/18/19 Docusate Sodium [Colace -] 100 mg PO TID capsule 06/18/19 Enoxaparin [Lovenox -] 40 mg SQ DAILY disp.syrin 06/18/19 Ferrous Sulfate [Feosol] 325 mg PO DAILY ud 06/18/19 Folic Acid - 1 mg PO DAILY tablet 06/18/19 Methotrexate [Mexate -] 20 mg PO Mo@1000 tablet 06/18/19 Naproxen [Naprosyn -] 500 mg PO BID tablet 06/18/19 Pantoprazole Sodium [Protonix -] 40 mg PO DAILY tablet.ec 06/18/19 Polyethylene Glycol 3350 [Miralax 119 gm Btl -] 17 gm PO DAILY PRN bottle 06/18 Sennosides [Senna -] 2 tab PO HS tablet 06/18/19 Sulfasalazine [Azulfidine En-Tabs -] 1,000 mg PO BID tablet. 06/18/19 oxyCODONE HCL [Roxicodone -] 5 mg PO Q6H PRN tablet MDD 20 06/18/19 - Discharge Referral Referred to [facility] No ATTENDING PHYSICIAN STATEMENT I saw and evaluated the patient. I reviewed the resident's note and discussed the case with the resident. I agree with the resident's findings and plan as documented. SUBJECTIVE: OBJECTIVE: ASSESSMENT AND PLAN:
== END 2019-06-18 22:00 | DRG 342 ==
LOC: JER 10:54 → JERBED 14:36 → J7W 18:16
PROVIDERS: ADMIT Hospitalist; ATTEND Internal Medicine
PROC: 0RSVXZZ Reposition Left Metacarpophalangeal Joint, External Approach (ICD-10-PCS; principal; 2019-06-14)
DX: S83.001A Unspecified subluxation of right patella, initial encounter (principal); S63.207A Unspecified subluxation of left little finger, initial encounter; W19.XXXA Unspecified fall, initial encounter; Y99.9 Unspecified external cause status; Y93.9 Activity, unspecified; Y92.89 Other specified places as the place of occurrence of the external cause; M06.9 Rheumatoid arthritis, unspecified; D64.9 Anemia, unspecified; D47.3 Essential (hemorrhagic) thrombocythemia; E88.09 Other disorders of plasma-protein metabolism, not elsewhere classified; E66.9 Obesity, unspecified; Z68.36 Body mass index [BMI] 36.0-36.9, adult
CPT/HCPCS: 36415; 71045-TC-FY; 72170-TC-FY; 72192-TC; 73110-TC-LT-FY; 73130-TC-LT-FY; 73562-TC-RT-FY; 73700-TC-RT; 80053; 82962; 83735; 84100; 84155; 84165; 85025; 85027; 85651; 85730; 86140; 86431; 93005; 93010; 97116-GP; 97162-GP; 99284-25; J0131; J7030; J8610